=== PATIENT | male | born 1940 | race Caucasian/White ===

== ENCOUNTER 2016-12-02 01:14 | Emergency (ER) | payer MEDICARE, BC ==
[2016-12-02 01:44] VITALS: BP 136/63
[2016-12-02] MEDS ORDERED: Sodium Chloride 0.9% 1,000 ML IV SCH (02:30)
--- NOTE | 2016-12-02 03:52 | EDM.PDOC ---
ED HISTORY OF PRESENT ILLNESS - General Chief Complaint: Respiratory Problem Stated Complaint: FEVER/COUGH Time Seen by Provider: 12/02/16 02:09 Source: Reports: Patient History Limitations: Reports: No limitations - History of Present Illness INITIAL COMMENTS - FREE TEXT/NARRATIVE: History of present illness: [76-year-old male presenting with cold and cough symptoms for the last 2 or 3 days. He lives alone in town. He still driving. He cooks for himself and the neighbor helps clean his apartment. Tonight he felt short of breath and so came in in by private vehicle his son bringing him in. He has had no fever or chills. He does have a productive cough of clear sputum. He admits that he does chew but quit smoking in 1971] Review of systems: As per history of present illness and below otherwise all systems reviewed and negative. Past medical history: As per history of present illness and as reviewed below otherwise noncontributory. Surgical history: As per history of present illness and as reviewed below otherwise noncontributory. Social history: No reported history of drug or alcohol abuse. Family history: As per history of present illness and as reviewed below otherwise noncontributory. Physical exam: HEENT: Atraumatic, normocephalic, pupils reactive, negative for conjunctival pallor or scleral icterus, mucous membranes somewhat dry, throat clear, neck supple, nontender, trachea midline. Lungs: CTA with poor air movement Heart: S1S2, regular Abdomen: Soft, nondistended, nontender. Negative for masses or hepatosplenomegaly. Pelvis: Stable nontender. Genitourinary: Deferred. Rectal: Deferred. Extremities: Atraumatic, negative for cords or calf pain. Neurovascular unremarkable. Neuro: Awake, alert, oriented. Exam nonfocal. Diagnostics: [CBC complete metabolic panel and a swab for influenza A and B. were done. Influenza A and B. were negative. Chest x-ray does not show anything acute or new. He does have a pacemaker in.] Therapeutics: [Patient received IV fluids and felt somewhat better with this. I think it loosened his secretions.] Impression: [URI] Plan: [Symptomatic care is recommended followup with primary if not improving or the ER if symptoms significantly worsen] Definitive disposition and diagnosis as appropriate pending reevaluation and review of above. - Related Data Allergies/ADRs: Allergies Allergy/AdvReac Type Severity Reaction Status Date / Time cefaclor [From Ceclor] Allergy Rash Verified 09/21/16 13:50 cefuroxime axetil Allergy Cannot Verified 09/21/16 13:50 [From Ceftin] Remember contact metal agent Allergy Cannot Verified 09/21/16 13:50 Remember diltiazem HCl [From Cardizem] Allergy Cannot Verified 09/21/16 13:50 Remember latex Allergy Rash Verified 09/21/16 13:50 metronidazole [From Flagyl] Allergy Rash Verified 09/21/16 13:50 Metronidazole HCl Allergy Rash Verified 09/21/16 13:50 [From Flagyl] naproxen [From Naprosyn] AdvReac Liver Verified 09/21/16 13:50 Problems ranitidine AdvReac Stomach Verified 09/21/16 13:50 Upset Home Meds: Home Meds Aspirin [Cassia Chewable Aspirin] 81 mg PO DAILY 07/14/13 [History] Furosemide [Lasix] 20 mg PO DAILY 07/14/13 [History] Metoprolol Succinate [Toprol XL] 50 mg PO DAILY 07/14/13 [History] Warfarin [Coumadin] 10 mg PO ASDIRECTED 07/14/13 [History] glipiZIDE [Glucotrol XL] 20 mg PO BIDM 07/14/13 [History] Acetaminophen [Acetaminophen Extra Strength] 1,000 mg PO Q6HR PRN 02/26/14 [ History] Allopurinol [Zyloprim] 100 mg PO DAILY 02/26/14 [History] Calcium Carbonate/Vitamin D3 [Calcium 600 + Vit D Tablet] 1 tab PO DAILY [History] Fish Oil/[place]-3 Fatty Acids [Fish Oil 1,000 MG] 1 tab PO DAILY 02/26/14 [ History] atorvaSTATin [Lipitor] 40 mg PO DAILY 04/30/14 [History] metFORMIN [Glucophage] 1,000 mg PO DAILY 01/27/15 [History] Glucosamine/D3/Boswellia Ivet [Osteo Bi-Flex Caplet] 1 tab PO DAILY 02/09/15 [ History] Meclizine HCl 25 mg PO TID PRN 02/09/15 [History] Warfarin [Coumadin] 7.5 mg PO ASDIRECTED 11/17/15 [History] Nitroglycerin 0.4 mg SL ASDIRECTED 02/16/16 [History] Past Medical History HEENT History: Reports: Cataract, Glaucoma, Hard of hearing, Impaired vision, Macular degeneration, Otitis media, Sinusitis Cardiovascular History: Reports: Afib, Bypass, CAD, High cholesterol, Hypertension, [place], Pacemaker Respiratory History: Reports: SOB Gastrointestinal History: Reports: Chronic constipation, Chronic diarrhea, Other (see below) Other Gastrointestinal History: diverticulitis Genitourinary History: Reports: Prostate disorder Musculoskeletal History: Reports: Arthritis, Osteoarthritis Neurological History: Reports: CVA, TIA, Vertigo Endocrine/Metabolic History: Reports: Diabetes, type II Hematologic History: Reports: Anticoagulation therapy, Blood transfusion(s) Immunologic History: Reports: None Oncologic (Cancer) History: Reports: Prostate - Infectious Disease History Infectious Disease History: Reports: Other (see below) Other Infectious Disease History: unknown to patient - Past Surgical History HEENT Surgical History: Reports: Myringotomy w tube(s) Cardiovascular Surgical History: Reports: Coronary artery bypass, Pacer Other Cardiovascular Surgeries/Procedures: open heart surgery GI Surgical History: Reports: Appendectomy, Cholecystectomy, Colonoscopy, Hernia , abdominal, Hernia, inguinal, Hernia repair/other Male Surgical History: Reports: TURP-Transurethral resection of prostate Other Male Surgeries/Procedures: left tesi Musculoskeletal Surgical History: Reports: Knee replacement Oncologic Surgical History: Reports: None Social & Family History - Family History HEENT: Reports: Impaired vision Cardiac: Reports: Afib, CAD, [place] Respiratory: Reports: COPD GI: Reports: Cirrhosis, Pancreatitis : Reports: None OBGYN: Reports: None Musculoskeletal: Reports: Arthritis Neurological: Reports: CVA Psychiatric: Reports: None Endocrine/Metabolic: Reports: Diabetes, type II Hematologic: Reports: None Immunologic: Reports: None Dermatologic: Reports: None Oncologic: Reports: None - Tobacco Use Smoking Status *Q: Never Smoker Years of Tobacco use: 35 Packs/Tins Daily: 1 Used Tobacco, but Quit: Yes Month Tobacco Last Used: Sep. Second Hand Smoke Exposure: No - Caffeine Use Caffeine Use: Reports: Coffee - Alcohol Use Days Per Week of Alcohol Use: 0 - Recreational Drug Use Recreational Drug Use: No ED ROS GENERAL - Review of Systems Review Of Systems: ROS reveals no pertinent complaints other than HPI. ED EXAM, GENERAL - Physical Exam Exam: See Below Course - Vital Signs Last Recorded V/S: Last Vital Signs Temp 37.3 C 12/02/16 01:57 Pulse 69 12/02/16 01:57 Resp 28 H 12/02/16 01:57 BP 136/63 12/02/16 01:57 Pulse Ox 96 12/02/16 01:57 - Orders/Labs/Meds Orders: Active Orders 24 hr Category Date Time Status Chest 2V [CR] Stat Exams 12/02/16 02:16 Taken UA W/MICROSCOPIC [URIN] Stat Lab 12/02/16 02:16 Uncollected Sodium Chloride 0.9% [Normal Saline] 1,000 ml Med 12/02/16 02:30 Active IV ASDIRECTED Medication Orders Sodium Chloride (Normal Saline) 1,000 mls @ 500 mls/hr IV ASDIRECTED EDY Last Admin: 12/02/16 02:48 Dose: 500 mls/hr Labs: Laboratory Tests 12/02/16 12/02/16 12/02/16 Range/Units 02:25 02:25 02:25 WBC 4.3 L (4.5-11.0) K/uL RBC 3.76 L (4.30-5.90) M/uL Hgb 11.3 L (12.0-15.0) g/dL Hct 35.7 L (40.0-54.0) % MCV 95 (80-98) fL MCH 30 (27-31) pg MCHC 32 (32-36) % Plt Count 137 L (150-400) K/uL Neut % (Auto) 70 H (36-66) % Lymph % (Auto) 17 L (24-44) % [place] % (Auto) 11 H (2-6) % Eos % (Auto) 2 (2-4) % Baso % (Auto) 1 (0-1) % Sodium 142 (140-148) mmol/L Potassium 4.0 (3.6-5.2) mmol/L Chloride 107 (100-108) mmol/L Carbon Dioxide 24 (21-32) mmol/L Anion Gap 11.4 (5.0-14.0) mmol/L BUN 18 (7-18) mg/dL Creatinine 0.9 (0.8-1.3) mg/dL Est Cr Clr Drug Dosing TNP Estimated GFR (MDRD) > 60 (>60) Glucose 110 H (74-106) mg/dL Lactic Acid 1.2 (0.4-2.0) mmol/L Calcium 8.7 (8.5-10.1) mg/dL Total Bilirubin 1.4 H (0.2-1.0) mg/dL AST 46 H (15-37) U/L ALT 33 (12-78) U/L Alkaline Phosphatase 258 H (46-116) U/L C-Reactive Protein 0.48 H (0.0-0.3) mg/dL Total Protein 7.4 (6.4-8.2) g/dL Albumin 3.0 L (3.4-5.0) g/dL Globulin 4.4 H (2.3-3.5) g/dL Albumin/Globulin Ratio 0.7 L (1.2-2.2) Meds: Medications Generic Name Dose Route Start Last Admin Trade Name Freq PRN Reason Stop Dose Admin Sodium Chloride 1,000 mls @ 500 mls/hr 12/02/16 02:30 12/02/16 02:48 Normal Saline IV 500 mls/hr ASDIRECTED EDY Administration Departure - Departure Time of Disposition: 03:51 Disposition: Home, Self-Care 01 Condition: good Clinical Impression: URI (upper respiratory infection) Qualifiers: URI type: unspecified viral URI Qualified Code(s): J06.9 - Acute upper respiratory infection, unspecified; B97.89 - Other viral agents as the cause of diseases classified elsewhere Forms: ED Department Discharge Additional Instructions: Please feel free to followup in the emergency room if her symptoms significantly worsen otherwise follow up with your doctor if you are not improving. - My Orders Last 24 Hours: My Active Orders 12/02/16 02:16 Chest 2V [CR] Stat UA W/MICROSCOPIC [URIN] Stat 12/02/16 02:30 Sodium Chloride 0.9% [Normal Saline] 1,000 ml IV ASDIRECTED - Assessment/Plan Last 24 Hours: My Active Orders 12/02/16 02:16 Chest 2V [CR] Stat UA W/MICROSCOPIC [URIN] Stat 12/02/16 02:30 Sodium Chloride 0.9% [Normal Saline] 1,000 ml IV ASDIRECTED
--- NOTE | 2016-12-02 08:55 | CR ---
Moderate to advanced cardiomegaly. No focal consolidation. Pulmonary vasculature within normal limit s.
== END 2016-12-02 04:14 | disposition home or self-care (01) ==
LOC: JP.ED 01:14
DX: J06.9 Acute upper respiratory infection, unspecified (principal); B97.89 Other viral agents as the cause of diseases classified elsewhere; I48.91 Unspecified atrial fibrillation; I25.10 Atherosclerotic heart disease of native coronary artery without angina pectoris; I10 Essential (primary) hypertension; I25.2 Old myocardial infarction; E78.00 Pure hypercholesterolemia, unspecified; E11.9 Type 2 diabetes mellitus without complications; Z85.46 Personal history of malignant neoplasm of prostate; Z90.49 Acquired absence of other specified parts of digestive tract; Z95.0 Presence of cardiac pacemaker; Z95.1 Presence of aortocoronary bypass graft; Z96.22 Myringotomy tube(s) status; Z98.890 Other specified postprocedural states; Z96.659 Presence of unspecified artificial knee joint; Z79.82 Long term (current) use of aspirin; Z79.01 Long term (current) use of anticoagulants; Z79.899 Other long term (current) drug therapy; Z88.8 Allergy status to other drugs, medicaments and biological substances; Z91.040 Latex allergy status
CPT/HCPCS: 36415; 71020; 80053; 83605; 85025; 86140; 87804; 96360; 96361; 99284; J7040; 99282

== ENCOUNTER 2017-01-10 15:59 | Inpatient (IN) | payer MEDICARE, BC, SELFPAY ==
[~2017-01-10 15:59] MED LIST: Bisacodyl 5 MG Tab PO ONE
[2017-01-10] MEDS ORDERED: Sodium Chloride 0.9% 10 ML Syringe FLUSH PRN ×3 (16:39→18:47)
[2017-01-10] MEDS ORDERED: Lactated Ringers 1,000 ML IV SCH (16:45)
--- NOTE | 2017-01-10 16:51 | EDM.PDOC ---
ED HPI GI/ABDOMINAL - General Chief Complaint: Genitourinary Problem Stated Complaint: BLEEDING Time Seen by Provider: 01/10/17 16:31 Source: Reports: Patient, Old records, RN notes reviewed History Limitations: Reports: No limitations - History of Present Illness INITIAL COMMENTS - FREE TEXT/NARRATIVE: 76-year-old gentleman presents emergency department today with bright red blood per rectum he has had difficulty with GI bleeds in the past he's had a prolapse rectal fissures EGD and colonoscopy all within the last 2 years. He states the bleeding has occurred throughout most the day he does not feel lightheaded no nausea vomiting - Related Data Allergies/ADRs: Allergies Allergy/AdvReac Type Severity Reaction Status Date / Time cefaclor [From Ceclor] Allergy Rash Verified 01/10/17 16:23 cefuroxime axetil Allergy Cannot Verified 01/10/17 16:23 [From Ceftin] Remember contact metal agent Allergy Cannot Verified 01/10/17 16:23 Remember diltiazem HCl [From Cardizem] Allergy Cannot Verified 01/10/17 16:23 Remember latex Allergy Rash Verified 01/10/17 16:23 metronidazole [From Flagyl] Allergy Rash Verified 01/10/17 16:23 Metronidazole HCl Allergy Rash Verified 01/10/17 16:23 [From Flagyl] naproxen [From Naprosyn] AdvReac Liver Verified 01/10/17 16:23 Problems ranitidine AdvReac Stomach Verified 01/10/17 16:23 Upset Home Meds: Home Meds Aspirin [Cassia Chewable Aspirin] 81 mg PO DAILY 07/14/13 [History] Furosemide [Lasix] 40 mg PO DAILY 07/14/13 [History] Metoprolol Succinate [Toprol XL] 50 mg PO DAILY 07/14/13 [History] glipiZIDE [Glucotrol XL] 20 mg PO BIDM 07/14/13 [History] Acetaminophen [Acetaminophen Extra Strength] 1,000 mg PO Q6HR PRN 02/26/14 [ History] Allopurinol [Zyloprim] 100 mg PO DAILY 02/26/14 [History] Calcium Carbonate/Vitamin D3 [Calcium 600 + Vit D Tablet] 1 tab PO DAILY [History] Fish Oil/[place]-3 Fatty Acids [Fish Oil 1,000 MG] 1 tab PO DAILY 02/26/14 [ History] atorvaSTATin [Lipitor] 40 mg PO DAILY 04/30/14 [History] metFORMIN [Glucophage] 1,000 mg PO DAILY 01/27/15 [History] Glucosamine/D3/Boswellia Ivet [Osteo Bi-Flex Caplet] 1 tab PO DAILY 02/09/15 [ History] Meclizine HCl 25 mg PO TID PRN 02/09/15 [History] Warfarin [Coumadin] 7.5 mg PO DAILY 11/17/15 [History] Nitroglycerin 0.4 mg SL ASDIRECTED 02/16/16 [History] Docusate Sodium [Stool Softener] 50 mg PO DAILY 01/10/17 [History] Past Medical History HEENT History: Reports: Cataract, Glaucoma, Hard of hearing, Impaired vision, Macular degeneration, Otitis media, Sinusitis Cardiovascular History: Reports: Afib, Bypass, CAD, High cholesterol, Hypertension, [place], Pacemaker Respiratory History: Reports: SOB Gastrointestinal History: Reports: Chronic constipation, Chronic diarrhea, Other (see below) Other Gastrointestinal History: diverticulitis, bloody stools Genitourinary History: Reports: Prostate disorder Musculoskeletal History: Reports: Arthritis, Osteoarthritis Neurological History: Reports: CVA, TIA, Vertigo Endocrine/Metabolic History: Reports: Diabetes, type II Hematologic History: Reports: Anticoagulation therapy, Blood transfusion(s) Immunologic History: Reports: None Oncologic (Cancer) History: Reports: Prostate - Infectious Disease History Infectious Disease History: Reports: Measles Other Infectious Disease History: unknown to patient - Past Surgical History HEENT Surgical History: Reports: Myringotomy w tube(s) Cardiovascular Surgical History: Reports: Coronary artery bypass, Pacer Other Cardiovascular Surgeries/Procedures: open heart surgery GI Surgical History: Reports: Appendectomy, Cholecystectomy, Colonoscopy, Hernia , abdominal, Hernia, inguinal, Hernia repair/other Male Surgical History: Reports: TURP-Transurethral resection of prostate Other Male Surgeries/Procedures: left tesi Musculoskeletal Surgical History: Reports: Knee replacement Oncologic Surgical History: Reports: None Social & Family History - Family History HEENT: Reports: Impaired vision Cardiac: Reports: Afib, CAD, [place] Respiratory: Reports: COPD GI: Reports: Cirrhosis, Pancreatitis : Reports: None OBGYN: Reports: None Musculoskeletal: Reports: Arthritis Neurological: Reports: CVA Psychiatric: Reports: None Endocrine/Metabolic: Reports: Diabetes, type II Hematologic: Reports: None Immunologic: Reports: None Dermatologic: Reports: None Oncologic: Reports: None - Tobacco Use Smoking Status *Q: Never Smoker Years of Tobacco use: 20 Packs/Tins Daily: 0.1 Used Tobacco, but Quit: Yes Month Tobacco Last Used: Sep. Second Hand Smoke Exposure: No - Caffeine Use Caffeine Use: Reports: Coffee - Alcohol Use Days Per Week of Alcohol Use: 0 - Recreational Drug Use Recreational Drug Use: No ED ROS GENERAL - Review of Systems Review Of Systems: See Below Constitutional: Reports: no symptoms HEENT: Reports: No symptoms Respiratory: Reports: No Symptoms Cardiovascular: Reports: No symptoms GI/Abdominal: Reports: Bloody stool : Reports: no symptoms ED EXAM, GI/ABD - Physical Exam Exam: See Below Exam Limited By: No limitations General Appearance: alert, WD/WN, no apparent distress Respiratory/Chest: no respiratory distress, lungs clear, normal breath sounds, no accessory muscle use Cardiovascular: no murmur, irregularly irregular GI/Abdominal: soft, non tender Rectal (Males) Exam: Bloody Stool. No: Hemorrhoids, Perirectal abscess, Rectal fissure Skin Exam: Petechiae (abdomen) Course - Vital Signs Last Recorded V/S: Last Vital Signs Temp 98.2 F 01/10/17 16:12 Pulse 64 01/10/17 17:32 Resp 20 01/10/17 16:12 BP 132/71 01/10/17 17:32 Pulse Ox 95 01/10/17 17:32 - Orders/Labs/Meds Orders: Active Orders 24 hr Category Date Time Status Peripheral IV Care [RC] . DIRECTED Care 01/10/17 16:40 Active Peripheral IV Care [RC] . DIRECTED Care 01/10/17 16:56 Active RED BLOOD CELLS LP [BBK] Urgent Lab 01/10/17 17:00 Received TYPE AND SCREEN [BBK] Urgent Lab 01/10/17 17:00 Received Lactated Ringers [Ringers, Lactated] 1,000 ml Med 01/10/17 16:45 Active IV ASDIRECTED Sodium Chloride 0.9% [Saline Flush] Med 01/10/17 16:39 Active 10 ml FLUSH ASDIRECTED PRN Sodium Chloride 0.9% [Saline Flush] Med 01/10/17 16:55 Active 10 ml FLUSH ASDIRECTED PRN Peripheral IV Insertion Adult [OM.PC] Routine Oth 01/10/17 16:55 Ordered Peripheral IV Insertion Adult [OM.PC] Urgent Oth 01/10/17 16:39 Ordered Medication Orders Lactated Ringer's (Ringers, Lactated) 1,000 mls @ 500 mls/hr IV ASDIRECTED EDY Last Admin: 01/10/17 17:07 Dose: 500 mls/hr Sodium Chloride (Saline Flush) 10 ml FLUSH ASDIRECTED PRN PRN Reason: Keep Vein Open Last Admin: 01/10/17 17:09 Dose: 10 ml Sodium Chloride (Saline Flush) 10 ml FLUSH ASDIRECTED PRN PRN Reason: Keep Vein Open Last Admin: 01/10/17 17:09 Dose: 10 ml Labs: Laboratory Tests 01/10/17 01/10/17 01/10/17 Range/Units 16:39 17:00 17:00 WBC 3.8 L (4.5-11.0) K/uL RBC 3.83 L (4.30-5.90) M/uL Hgb 11.8 L (12.0-15.0) g/dL Hct 36.8 L (40.0-54.0) % MCV 96 (80-98) fL MCH 31 (27-31) pg MCHC 32 (32-36) % Plt Count 158 (150-400) K/uL Neut % (Auto) 67 H (36-66) % Lymph % (Auto) 19 L (24-44) % [place] % (Auto) 10 H (2-6) % Eos % (Auto) 3 (2-4) % Baso % (Auto) 1 (0-1) % PT 30.0 H (9.5-12.0) sec INR 2.74 H (0.80-1.20) APTT 36.6 H (27.0-36.0) sec Sodium 138 L (140-148) mmol/L Potassium 4.1 (3.6-5.2) mmol/L Chloride 103 (100-108) mmol/L Carbon Dioxide 30 (21-32) mmol/L Anion Gap 9.1 (5.0-14.0) mmol/L BUN 14 (7-18) mg/dL Creatinine 1.0 (0.8-1.3) mg/dL Est Cr Clr Drug Dosing 75.35 mL/min Estimated GFR (MDRD) > 60 (>60) Glucose 210 H (74-106) mg/dL Lactic Acid (0.4-2.0) mmol/L Calcium 8.4 L (8.5-10.1) mg/dL Total Bilirubin 1.5 H (0.2-1.0) mg/dL AST 45 H (15-37) U/L ALT 29 (12-78) U/L Alkaline Phosphatase 235 H (46-116) U/L Total Protein 7.7 (6.4-8.2) g/dL Albumin 2.9 L (3.4-5.0) g/dL Globulin 4.8 H (2.3-3.5) g/dL Albumin/Globulin Ratio 0.6 L (1.2-2.2) 01/10/17 Range/Units 17:00 WBC (4.5-11.0) K/uL RBC (4.30-5.90) M/uL Hgb (12.0-15.0) g/dL Hct (40.0-54.0) % MCV (80-98) fL MCH (27-31) pg MCHC (32-36) % Plt Count (150-400) K/uL Neut % (Auto) (36-66) % Lymph % (Auto) (24-44) % [place] % (Auto) (2-6) % Eos % (Auto) (2-4) % Baso % (Auto) (0-1) % PT (9.5-12.0) sec INR (0.80-1.20) APTT (27.0-36.0) sec Sodium (140-148) mmol/L Potassium (3.6-5.2) mmol/L Chloride (100-108) mmol/L Carbon Dioxide (21-32) mmol/L Anion Gap (5.0-14.0) mmol/L BUN (7-18) mg/dL Creatinine (0.8-1.3) mg/dL Est Cr Clr Drug Dosing mL/min Estimated GFR (MDRD) (>60) Glucose (74-106) mg/dL Lactic Acid 1.5 (0.4-2.0) mmol/L Calcium (8.5-10.1) mg/dL Total Bilirubin (0.2-1.0) mg/dL AST (15-37) U/L ALT (12-78) U/L Alkaline Phosphatase (46-116) U/L Total Protein (6.4-8.2) g/dL Albumin (3.4-5.0) g/dL Globulin (2.3-3.5) g/dL Albumin/Globulin Ratio (1.2-2.2) Meds: Medications Generic Name Dose Route Start Last Admin Trade Name Freq PRN Reason Stop Dose Admin Lactated Ringer's 1,000 mls @ 500 mls/hr 01/10/17 16:45 01/10/17 17:07 Ringers, Lactated IV 500 mls/hr ASDIRECTED EDY Administration Sodium Chloride 10 ml 01/10/17 16:39 01/10/17 17:09 Saline Flush FLUSH 10 ml ASDIRECTED PRN Administration Keep Vein Open Sodium Chloride 10 ml 01/10/17 16:55 01/10/17 17:09 Saline Flush FLUSH 10 ml ASDIRECTED PRN Administration Keep Vein Open Departure - Departure Time of Disposition: 17:40 Disposition: Admitted As Inpatient 68 Clinical Impression: GI bleed Qualifiers: GI bleed type/associated pathology: unspecified gastrointestinal hemorrhage type Qualified Code(s): K92.2 - Gastrointestinal hemorrhage, unspecified Forms: ED Department Discharge - My Orders Last 24 Hours: My Active Orders 01/10/17 16:39 Sodium Chloride 0.9% [Saline Flush] 10 ml FLUSH ASDIRECTED PRN Peripheral IV Insertion Adult [OM.PC] Urgent 01/10/17 16:40 Peripheral IV Care [RC] . DIRECTED 01/10/17 16:45 Lactated Ringers [Ringers, Lactated] 1,000 ml IV ASDIRECTED 01/10/17 16:55 Sodium Chloride 0.9% [Saline Flush] 10 ml FLUSH ASDIRECTED PRN Peripheral IV Insertion Adult [OM.PC] Routine 01/10/17 16:56 Peripheral IV Care [RC] . DIRECTED 01/10/17 17:00 RED BLOOD CELLS LP [BBK] Urgent TYPE AND SCREEN [BBK] Urgent - Assessment/Plan Last 24 Hours: My Active Orders 01/10/17 16:39 Sodium Chloride 0.9% [Saline Flush] 10 ml FLUSH ASDIRECTED PRN Peripheral IV Insertion Adult [OM.PC] Urgent 01/10/17 16:40 Peripheral IV Care [RC] . DIRECTED 01/10/17 16:45 Lactated Ringers [Ringers, Lactated] 1,000 ml IV ASDIRECTED 01/10/17 16:55 Sodium Chloride 0.9% [Saline Flush] 10 ml FLUSH ASDIRECTED PRN Peripheral IV Insertion Adult [OM.PC] Routine 01/10/17 16:56 Peripheral IV Care [RC] . DIRECTED 01/10/17 17:00 RED BLOOD CELLS LP [BBK] Urgent TYPE AND SCREEN [BBK] Urgent Plan: Assessment Acuity = acute Site and laterality = bright red blood per rectum complicated patient with known coronary artery disease, atrial fibrillation on chronic anticoagulation as well as history of colonic polyps, rectal prolapse and rectal fissure as well as diabetes mellitus type 2 Etiology = unclear etiology Manifestations = none Location of injury = home Lab values = WBC low at 3.8 consistent with leukopenia, hemoglobin low at 11.8 consistent normochromic anemia INR is therapeutic at 2.74 sodium low at 138 consistent hyponatremia lactic acid normal at 1.5 total bilirubin elevated at 1.5 consistent hyperbilirubinemia albumin low at 2.9 consistent hypoalbuminemia alkaline phosphatase elevated at 235 Plan Called and discussed the case with hospitalist systems integration advisor he agreed to come to the emergency department and evaluate the patient for admission, type and screen of 2 units has been held Patient was in agreement with the plan all questions were answered, This note was dictated using [employer] voice recognition software please call with any questions.
[2017-01-10] MEDS ORDERED: Polyethylene Glycol 3350 Powder 238 GM Bot PO ONE (17:00)
[2017-01-10] MEDS ORDERED: Polyethylene Glycol 3350 Powder 238 GM Bot ONE (18:16)
[2017-01-10] MEDS ORDERED: Bisacodyl 5 MG Tab ONE (18:17)
--- NOTE | 2017-01-10 18:23 | PCM.HP ---
H&P History of Present Illness - General Date of Service: 01/10/17 Admit Problem/Dx: Admission Diagnosis/Problem Admission Diagnosis/Problem Bleeding Source of Information: Patient, Old records, Provider, RN notes reviewed History Limitations: Reports: No limitations - History of Present Illness Initial Comments - Free Text/Narative: Mr. Vazquez is a 76-year-old gentleman who is admitted through the emergency department with a history of bloody stools over the past 24 hours. He denies significant abdominal pain and reports a large amount of blood with each bowel movement. He is received IV fluids in the emergency department, hemoglobin found to be 11.8 and he has remained hemodynamically stable. - Related Data Allergies/Adverse Reactions: Allergies Allergy/AdvReac Type Severity Reaction Status Date / Time cefaclor [From Ceclor] Allergy Rash Verified 01/10/17 16:23 cefuroxime axetil Allergy Cannot Verified 01/10/17 16:23 [From Ceftin] Remember contact metal agent Allergy Cannot Verified 01/10/17 16:23 Remember diltiazem HCl [From Cardizem] Allergy Cannot Verified 01/10/17 16:23 Remember latex Allergy Rash Verified 01/10/17 16:23 metronidazole [From Flagyl] Allergy Rash Verified 01/10/17 16:23 Metronidazole HCl Allergy Rash Verified 01/10/17 16:23 [From Flagyl] naproxen [From Naprosyn] AdvReac Liver Verified 01/10/17 16:23 Problems ranitidine AdvReac Stomach Verified 01/10/17 16:23 Upset Home Medications: Home Meds Aspirin [Cassia Chewable Aspirin] 81 mg PO DAILY 07/14/13 [History] Furosemide [Lasix] 40 mg PO DAILY 07/14/13 [History] Metoprolol Succinate [Toprol XL] 50 mg PO DAILY 07/14/13 [History] glipiZIDE [Glucotrol XL] 20 mg PO BIDM 07/14/13 [History] Acetaminophen [Acetaminophen Extra Strength] 1,000 mg PO Q6HR PRN 02/26/14 [ History] Allopurinol [Zyloprim] 100 mg PO DAILY 02/26/14 [History] Calcium Carbonate/Vitamin D3 [Calcium 600 + Vit D Tablet] 1 tab PO DAILY [History] Fish Oil/[place]-3 Fatty Acids [Fish Oil 1,000 MG] 1 tab PO DAILY 02/26/14 [ History] atorvaSTATin [Lipitor] 40 mg PO DAILY 04/30/14 [History] metFORMIN [Glucophage] 1,000 mg PO DAILY 01/27/15 [History] Glucosamine/D3/Boswellia Ivet [Osteo Bi-Flex Caplet] 1 tab PO DAILY 02/09/15 [ History] Meclizine HCl 25 mg PO TID PRN 02/09/15 [History] Warfarin [Coumadin] 7.5 mg PO DAILY 11/17/15 [History] Nitroglycerin 0.4 mg SL ASDIRECTED 02/16/16 [History] Docusate Sodium [Stool Softener] 50 mg PO DAILY 01/10/17 [History] Past Medical History HEENT History: Reports: Cataract, Glaucoma, Hard of hearing, Impaired vision, Macular degeneration, Otitis media, Sinusitis Cardiovascular History: Reports: Afib, Bypass, CAD, High cholesterol, Hypertension, [place], Pacemaker Respiratory History: Reports: SOB Gastrointestinal History: Reports: Chronic constipation, Chronic diarrhea, Other (see below) Other Gastrointestinal History: diverticulitis, bloody stools Genitourinary History: Reports: Prostate disorder Musculoskeletal History: Reports: Arthritis, Osteoarthritis Neurological History: Reports: CVA, TIA, Vertigo Endocrine/Metabolic History: Reports: Diabetes, type II Hematologic History: Reports: Anticoagulation therapy, Blood transfusion(s) Immunologic History: Reports: None Oncologic (Cancer) History: Reports: Prostate - Infectious Disease History Infectious Disease History: Reports: Measles Other Infectious Disease History: unknown to patient - Past Surgical History HEENT Surgical History: Reports: Myringotomy w tube(s) Cardiovascular Surgical History: Reports: Coronary artery bypass, Pacer Other Cardiovascular Surgeries/Procedures: open heart surgery GI Surgical History: Reports: Appendectomy, Cholecystectomy, Colonoscopy, Hernia , abdominal, Hernia, inguinal, Hernia repair/other Male Surgical History: Reports: TURP-Transurethral resection of prostate Other Male Surgeries/Procedures: left tesi Musculoskeletal Surgical History: Reports: Knee replacement Oncologic Surgical History: Reports: None Social & Family History - Family History HEENT: Reports: Impaired vision Cardiac: Reports: Afib, CAD, [place] Respiratory: Reports: COPD GI: Reports: Cirrhosis, Pancreatitis : Reports: None OBGYN: Reports: None Musculoskeletal: Reports: Arthritis Neurological: Reports: CVA Psychiatric: Reports: None Endocrine/Metabolic: Reports: Diabetes, type II Hematologic: Reports: None Immunologic: Reports: None Dermatologic: Reports: None Oncologic: Reports: None - Tobacco Use Smoking Status *Q: Never Smoker Years of Tobacco use: 20 Packs/Tins Daily: 0.1 Used Tobacco, but Quit: Yes Month Tobacco Last Used: Sep. Second Hand Smoke Exposure: No - Caffeine Use Caffeine Use: Reports: Coffee - Alcohol Use Days Per Week of Alcohol Use: 0 - Recreational Drug Use Recreational Drug Use: No H&P Review of Systems - Review of Systems: Review Of Systems: See Below General: Reports: weakness. Denies: fever, chills, diaphoresis HEENT: Reports: no symptoms Pulmonary: Reports: No Symptoms Cardiovascular: Reports: no symptoms Gastrointestinal: Reports: Bloody stool. Denies: Abdominal pain, Constipation, Diarrhea, Decreased appetite, Difficulty swallowing, Distension Genitourinary: Reports: no symptoms Musculoskeletal: Reports: no symptoms Skin: Reports: no symptoms Psychiatric: Reports: no symptoms Neurological: Reports: No Symptoms Hematologic/Lymphatic: Reports: no symptoms Immunologic: Reports: no symptoms Exam - Exam Exam: See Below - Vital Signs Vital Signs: Last Vital Signs Temp 98.2 F 01/10/17 16:12 Pulse 64 01/10/17 17:32 Resp 20 01/10/17 16:12 BP 132/71 01/10/17 17:32 Pulse Ox 95 01/10/17 17:32 Weight: 233 lb 11.04 oz - Exam General: alert, oriented, cooperative HEENT: Conjunctiva clear, EOMI, Mucosa moist & pink, Nares patent, Normal nasal septum, Posterior pharynx clear, Pupils equal, Pupils reactive. No: Hearing intact Neck: supple, trachea midline, +2 carotid pulse wo bruit Lungs: Normal respiratory effort, Decreased breath sounds. No: Crackles, Rales , Rhonchi, Wheezing Cardiovascular: regular rate, normal S1, normal S2, irregular rhythm. No: tachycardia, systolic murmur, diastolic murmur Abdomen: normal bowel sounds, soft Back Exam: normal inspection, full range of motion, NT Extremities: 3, normal inspection, 10 Skin: warm, dry, intact Neurological: cranial nerves intact, strength equal bilateral, normal speech, normal tone, sensation intact. No: focal deficit Neuro Extensive - Mental Status: alert, oriented x3, normal mood/affect, normal cognition, memory intact - Patient Data Lab Results last 24 hrs: Laboratory Results - last 24 hr 01/10/17 01/10/17 01/10/17 Range/Units 16:39 17:00 17:00 WBC 3.8 L (4.5-11.0) K/uL RBC 3.83 L (4.30-5.90) M/uL Hgb 11.8 L (12.0-15.0) g/dL Hct 36.8 L (40.0-54.0) % MCV 96 (80-98) fL MCH 31 (27-31) pg MCHC 32 (32-36) % Plt Count 158 (150-400) K/uL Neut % (Auto) 67 H (36-66) % Lymph % (Auto) 19 L (24-44) % [place] % (Auto) 10 H (2-6) % Eos % (Auto) 3 (2-4) % Baso % (Auto) 1 (0-1) % PT 30.0 H (9.5-12.0) sec INR 2.74 H (0.80-1.20) APTT 36.6 H (27.0-36.0) sec Sodium 138 L (140-148) mmol/L Potassium 4.1 (3.6-5.2) mmol/L Chloride 103 (100-108) mmol/L Carbon Dioxide 30 (21-32) mmol/L Anion Gap 9.1 (5.0-14.0) mmol/L BUN 14 (7-18) mg/dL Creatinine 1.0 (0.8-1.3) mg/dL Est Cr Clr Drug Dosing 75.35 mL/min Estimated GFR (MDRD) > 60 (>60) Glucose 210 H (74-106) mg/dL Lactic Acid (0.4-2.0) mmol/L Calcium 8.4 L (8.5-10.1) mg/dL Total Bilirubin 1.5 H (0.2-1.0) mg/dL AST 45 H (15-37) U/L ALT 29 (12-78) U/L Alkaline Phosphatase 235 H (46-116) U/L Total Protein 7.7 (6.4-8.2) g/dL Albumin 2.9 L (3.4-5.0) g/dL Globulin 4.8 H (2.3-3.5) g/dL Albumin/Globulin Ratio 0.6 L (1.2-2.2) Blood Type Gel Antibody Screen Crossmatch 01/10/17 01/10/17 Range/Units 17:00 17:00 WBC (4.5-11.0) K/uL RBC (4.30-5.90) M/uL Hgb (12.0-15.0) g/dL Hct (40.0-54.0) % MCV (80-98) fL MCH (27-31) pg MCHC (32-36) % Plt Count (150-400) K/uL Neut % (Auto) (36-66) % Lymph % (Auto) (24-44) % [place] % (Auto) (2-6) % Eos % (Auto) (2-4) % Baso % (Auto) (0-1) % PT (9.5-12.0) sec INR (0.80-1.20) APTT (27.0-36.0) sec Sodium (140-148) mmol/L Potassium (3.6-5.2) mmol/L Chloride (100-108) mmol/L Carbon Dioxide (21-32) mmol/L Anion Gap (5.0-14.0) mmol/L BUN (7-18) mg/dL Creatinine (0.8-1.3) mg/dL Est Cr Clr Drug Dosing mL/min Estimated GFR (MDRD) (>60) Glucose (74-106) mg/dL Lactic Acid 1.5 (0.4-2.0) mmol/L Calcium (8.5-10.1) mg/dL Total Bilirubin (0.2-1.0) mg/dL AST (15-37) U/L ALT (12-78) U/L Alkaline Phosphatase (46-116) U/L Total Protein (6.4-8.2) g/dL Albumin (3.4-5.0) g/dL Globulin (2.3-3.5) g/dL Albumin/Globulin Ratio (1.2-2.2) Blood Type A POSITIVE Gel Antibody Screen Negative Crossmatch See Detail Result Diagrams: 01/10/17 16:39 01/10/17 17:00 *Q Meaningful Use (ADM) - VTE *Q VTE Criteria *Q: VTE Pharmacological Contraindications *Q: Active Hemorrhage - VTE Risk Assess *Q Each Risk Factor Represents 1 Point: None Total Score 1 Point Risk Factors: 0 Each Risk Factor Represents 2 Points: Age 60 - 74 Years Total Score 2 Point Risk Factors: 2 Each Risk Factor Represents 3 Points: None Total Score 3 Point Risk Factors: 0 Each Risk Factor Represents 5 Points: None Total Score 5 Point Risk Factors: 0 Venous Thromboembolism Risk Factor Score *Q: 2 - Stroke *Q Stroke Criteria *Q: - AMI *Q AMI Criteria *Q: Problem List Initiated/Reviewed/Updated: Yes Orders Last 24hrs: Active Orders 24 hr Category Date Time Status Patient Status Manage Transfer [TRANSFER] Routine ADT 01/10/17 18:03 Ordered Peripheral IV Care [RC] . DIRECTED Care 01/10/17 16:40 Active Peripheral IV Care [RC] . DIRECTED Care 01/10/17 16:56 Active PATIENT RETYPE [BBK] Urgent Lab 01/10/17 17:00 Results RED BLOOD CELLS LP [BBK] Urgent Lab 01/10/17 17:00 Results TYPE AND SCREEN [BBK] Urgent Lab 01/10/17 17:00 Results Lactated Ringers [Ringers, Lactated] 1,000 ml Med 01/10/17 16:45 Active IV ASDIRECTED Sodium Chloride 0.9% [Saline Flush] Med 01/10/17 16:39 Active 10 ml FLUSH ASDIRECTED PRN Sodium Chloride 0.9% [Saline Flush] Med 01/10/17 16:55 Active 10 ml FLUSH ASDIRECTED PRN Peripheral IV Insertion Adult [OM.PC] Routine Oth 01/10/17 16:55 Ordered Peripheral IV Insertion Adult [OM.PC] Urgent Oth 01/10/17 16:39 Ordered Resuscitation Status Routine Resus Stat 01/10/17 18:10 Ordered Medication Orders Lactated Ringer's (Ringers, Lactated) 1,000 mls @ 500 mls/hr IV ASDIRECTED EDY Last Admin: 01/10/17 17:07 Dose: 500 mls/hr Sodium Chloride (Saline Flush) 10 ml FLUSH ASDIRECTED PRN PRN Reason: Keep Vein Open Last Admin: 01/10/17 17:09 Dose: 10 ml Sodium Chloride (Saline Flush) 10 ml FLUSH ASDIRECTED PRN PRN Reason: Keep Vein Open Last Admin: 01/10/17 17:09 Dose: 10 ml Assessment/Plan Comment:: ASSESSMENT AND PLAN LOWER GI BLEED-history of bloody stools over the past 24 hours. Hemodynamically stable, hemoglobin 11.8. Currently on long-term oral anticoagulation with warfarin because of underlying atrial fibrillation. -Clear liquid diet -N.p.o. after midnight -Protonix 40 mg IV every 12 hours -Type and cross to hold 2 units of red blood cells -Serial hemoglobin levels -Colonoscopy prep -Consult Dr. Wilson in a.m. for EGD and colonoscopy TYPE 2 DIABETES MELLITUS -Hold metformin and glipizide -4 times a day glucometers -Low-dose sliding scale NovoLog CORONARY ARTERY DISEASE-currently asymptomatic -Continue outpatient medical regimen MAINTENANCE ISSUES -DVT prophylaxis;SCUDs, hold on anticoagulation because of active bleeding -GI prophylaxis;Protonix as above -Emmanuel catheter;not indicated -Nutrition;clear liquid diet, n.p.o. after midnight -Nicotine dependence;not required CODE STATUS-full code ADMISSION STATUS-patient will be admitted to inpatient status, expect at least a 2 night hospital stay for evaluation and management of problems as outlined above. At the time of this admission I do not reasonably expected evaluation and management of this problem will require more than a 96 hour hospital stay. DISPOSITION-anticipate discharge to home after the hospital stay. PRIMARY CARE PROVIDER-Dr. Ureña
[2017-01-10] MEDS ORDERED: Glucose Gel 15 GM in 37.5 GM Tube PO PRN (18:47)
[2017-01-10] MEDS ORDERED: Ondansetron 4 MG/2 ML SDV IV PRN (18:47)
[2017-01-10] MEDS ORDERED: Albuterol 0.083% 2.5 MG/3 ML Neb Soln NEB PRN (18:47)
[2017-01-10] MEDS ORDERED: Acetaminophen 325 MG Tab PO PRN (18:47)
[2017-01-10] MEDS ORDERED: Phytonadione 5 MG in Sodium Chloride 0.9% 50 ML IV ONE (18:47)
[2017-01-10] MEDS ORDERED: 50% Dextrose in Water 50 ML Syringe IV PRN (18:47)
[2017-01-10] MEDS: Sodium Chloride 0.9% 1,000 ML IV SCH (19:22)
[2017-01-10] MEDS ORDERED: Bisacodyl 5 MG Tab PO ONE (20:00)
[2017-01-10] MEDS: Pantoprazole 40 MG Vial IVPUSH SCH (20:22)
[2017-01-10] MEDS: Insulin Aspart 100 Units/ML 3 ML Pen SUBCUT SCH (21:31)
[2017-01-11] MEDS: Sodium Chloride 0.9% 1,000 ML IV SCH ×2 (04:00→16:39)
[2017-01-11] MEDS: Pantoprazole 40 MG Vial IVPUSH SCH ×2 (06:07→17:27)
[2017-01-11] MEDS: Metoprolol Succinate 50 MG Tab.ER PO SCH (09:48)
[2017-01-11] MEDS: Allopurinol 100 MG Tab PO SCH (09:48)
[2017-01-11] MEDS ORDERED: Phytonadione 5 MG in Sodium Chloride 0.9% 50 ML IV ONE (10:00)
--- NOTE | 2017-01-11 10:18 | PCM.PN ---
- General Info Date of Service: 01/11/17 Functional Status: Reports: ambulating, urinating - Review of Systems General: Reports: Weakness Pulmonary: Reports: no symptoms Cardiovascular: Reports: No Symptoms Gastrointestinal: Reports: No symptoms Systems Review Comment:: Mr. Vazquez has remained stable since admission, no further evidence of active bleeding. INR remains elevated today, unable to proceed with EGD or colonoscopy. Hemoglobin has remained stable and he has had stable vital signs. - Patient Data Vitals - most recent: Last Vital Signs Temp 99.1 F 01/11/17 07:00 Pulse 65 01/11/17 09:48 Resp 20 01/11/17 09:00 BP 127/49 L 01/11/17 09:48 Pulse Ox 95 01/11/17 09:00 Weight - most recent: 229 lb 15.074 oz I&O - last 24 hours: Intake & Output 01/10/17 01/11/17 01/11/17 22:59 06:59 14:59 Intake Total 50 1236 Output Total 200 Balance -150 1236 Lab Results last 24 hrs: Laboratory Results - last 24 hr 01/10/17 01/11/17 01/11/17 Range/Units 23:00 05:00 05:00 WBC (4.5-11.0) K/uL RBC (4.30-5.90) M/uL Hgb 11.4 L (12.0-15.0) g/dL Hct (40.0-54.0) % MCV (80-98) fL MCH (27-31) pg MCHC (32-36) % Plt Count (150-400) K/uL Neut % (Auto) (36-66) % Lymph % (Auto) (24-44) % [place] % (Auto) (2-6) % Eos % (Auto) (2-4) % Baso % (Auto) (0-1) % PT 26.6 H (9.5-12.0) sec INR 2.44 H (0.80-1.20) Sodium 137 L (140-148) mmol/L Potassium 3.4 L (3.6-5.2) mmol/L Chloride 104 (100-108) mmol/L Carbon Dioxide 25 (21-32) mmol/L Anion Gap 11.4 (5.0-14.0) mmol/L BUN 12 (7-18) mg/dL Creatinine 0.8 (0.8-1.3) mg/dL Est Cr Clr Drug Dosing 94.23 mL/min Estimated GFR (MDRD) > 60 (>60) Glucose 72 L (74-106) mg/dL Calcium 8.1 L (8.5-10.1) mg/dL 01/11/17 Range/Units 05:11 WBC 3.9 L (4.5-11.0) K/uL RBC 3.55 L (4.30-5.90) M/uL Hgb 11.3 L (12.0-15.0) g/dL Hct 33.8 L (40.0-54.0) % MCV 95 (80-98) fL MCH 32 H (27-31) pg MCHC 33 (32-36) % Plt Count 160 (150-400) K/uL Neut % (Auto) 64 (36-66) % Lymph % (Auto) 20 L (24-44) % [place] % (Auto) 13 H (2-6) % Eos % (Auto) 3 (2-4) % Baso % (Auto) 1 (0-1) % PT (9.5-12.0) sec INR (0.80-1.20) Sodium (140-148) mmol/L Potassium (3.6-5.2) mmol/L Chloride (100-108) mmol/L Carbon Dioxide (21-32) mmol/L Anion Gap (5.0-14.0) mmol/L BUN (7-18) mg/dL Creatinine (0.8-1.3) mg/dL Est Cr Clr Drug Dosing mL/min Estimated GFR (MDRD) (>60) Glucose (74-106) mg/dL Calcium (8.5-10.1) mg/dL Med Orders - Current: Current Medications Acetaminophen (Tylenol) 650 mg PO Q4H PRN PRN Reason: Pain (Mild 1-3)/fever Albuterol (Proventil Neb Soln) 2.5 mg NEB Q4H PRN PRN Reason: Shortness Of Breath/wheezing Allopurinol (Zyloprim) 100 mg PO DAILY [facility] Last Admin: 01/11/17 09:48 Dose: 100 mg Atorvastatin Calcium (Lipitor) 40 mg PO BEDTIME [facility] Dextrose (Glutose 15) 15 gm PO ONETIME PRN PRN Reason: Hypoglycemia Dextrose/Water (Dextrose 50% In Water) 50 ml IV ONETIME PRN PRN Reason: Hypoglycemia Sodium Chloride (Normal Saline) 1,000 mls @ 125 mls/hr IV ASDIRECTED [facility] Last Admin: 01/11/17 04:00 Dose: 125 mls/hr Potassium Chloride 20 meq/Lidocaine HCl 2 ml/ Sodium Chloride 112 mls @ 56 mls/ hr IV Q2H [facility] Stop: 01/11/17 13:59 Phytonadione 5 mg/ Sodium (Chloride) 50.5 mls @ 100 mls/hr IV ONETIME ONE Stop: 01/11/17 10:30 Last Admin: 01/11/17 09:51 Dose: 100 mls/hr Sodium Chloride (Normal Saline) 1,000 mls @ 100 mls/hr IV ASDIRECTED [facility] Insulin Aspart (Novolog) 0 unit SUBCUT ASDIRECTED [facility] PRN Reason: Protocol Last Admin: 01/10/17 21:31 Dose: 2 units Metoprolol Succinate (Toprol Xl) 50 mg PO DAILY [facility] Last Admin: 01/11/17 09:48 Dose: 50 mg Ondansetron HCl (Zofran) 4 mg IV Q4H PRN PRN Reason: Nausea/Vomiting Oxycodone HCl (Oxycodone) 10 mg PO Q4H PRN PRN Reason: Pain (moderate 4-6) Pantoprazole Sodium (Protonix Iv) 40 mg IVPUSH Q12H [facility] Sodium Chloride (Saline Flush) 10 ml FLUSH ASDIRECTED PRN PRN Reason: Keep Vein Open Discontinued Medications Bisacodyl (Dulcolax) Confirm Administered Dose 10 mg .ROUTE .STK-MED ONE Stop: 01/10/17 18:18 Last Admin: 01/10/17 19:34 Dose: Not Given Bisacodyl (Dulcolax) 10 mg PO ONETIME ONE Stop: 01/10/17 09:01 Last Admin: 01/10/17 20:17 Dose: 10 mg Bisacodyl (Dulcolax) 10 mg PO ONETIME ONE Stop: 01/10/17 20:01 Last Admin: 01/10/17 21:55 Dose: 10 mg Lactated Ringer's (Ringers, Lactated) 1,000 mls @ 500 mls/hr IV ASDIRECTED EDY Last Admin: 01/10/17 17:07 Dose: 500 mls/hr Phytonadione 5 mg/ Sodium (Chloride) 50.5 mls @ 100 mls/hr IV NOW ONE Stop: 01/10/17 19:17 Last Admin: 01/10/17 19:45 Dose: 100 mls/hr Pantoprazole Sodium (Protonix Iv) 40 mg IVPUSH Q12H [facility] Last Admin: 01/11/17 06:07 Dose: 40 mg Polyethylene Glycol (Miralax) Confirm Administered Dose 238 gm .ROUTE .STK-MED ONE Stop: 01/10/17 18:17 Last Admin: 01/10/17 19:33 Dose: Not Given Polyethylene Glycol (Miralax) 238 gm PO ONETIME ONE Stop: 01/10/17 17:01 Last Admin: 01/10/17 19:42 Dose: 238 gram Sodium Chloride (Saline Flush) 10 ml FLUSH ASDIRECTED PRN PRN Reason: Keep Vein Open Last Admin: 01/10/17 17:09 Dose: 10 ml Sodium Chloride (Saline Flush) 10 ml FLUSH ASDIRECTED PRN PRN Reason: Keep Vein Open Last Admin: 01/10/17 17:09 Dose: 10 ml - Exam Quality Assessment: DVT prophylaxis General: alert, oriented, cooperative, no acute distress Lungs: Clear to auscultation, Normal respiratory effort Cardiovascular: Regular Rate, Regular Rhythm, No Murmurs Abdomen: bowel sounds present, soft, no tenderness, no distension Extremities: no edema Skin: warm, dry, intact - Problem List Review Problem List Initiated/Reviewed/Updated: Yes - My Orders Last 24 Hours: My Active Orders 01/10/17 18:10 Resuscitation Status Routine 01/10/17 18:47 Patient Status [ADT] Routine Blood Glucose Check, Bedside [RC] QIDACANDBED Communication Order [RC] ASDIRECTED Diabetes Education [RC] Click to Edit Intake and Output [RC] QSHIFT Notify Provider Vital Signs [RC] ASDIRECTED Notify Provider [RC] PRN Oxygen Therapy [RC] PRN Peripheral IV Care [RC] . DIRECTED RT Aerosol Therapy [RC] ASDIRECTED Up ad Erica [RC] ASDIRECTED VTE/DVT Education [RC] Per Unit Routine Vital Signs [RC] Q2H Acetaminophen [Tylenol] 650 mg PO Q4H PRN Albuterol [Proventil Neb Soln] 2.5 mg NEB Q4H PRN Dextrose 50% in Water 50 ml IV ONETIME PRN Dextrose [Glutose 15] 15 gm PO ONETIME PRN Insulin Aspart [NovoLOG] See Protocol SUBCUT ASDIRECTED Ondansetron [Zofran] 4 mg IV Q4H PRN Sodium Chloride 0.9% [Normal Saline] 1,000 ml IV ASDIRECTED Sodium Chloride 0.9% [Saline Flush] 10 ml FLUSH ASDIRECTED PRN oxyCODONE 10 mg PO Q4H PRN Peripheral IV Insertion Adult [OM.PC] Routine Sequential Compression Device [OM.PC] Per Unit Routine VTE Pharmacological Contraindications [AST] Per Unit Routine 01/11/17 09:00 Allopurinol [Zyloprim] 100 mg PO DAILY Metoprolol Succinate [Toprol XL] 50 mg PO DAILY 01/11/17 10:00 Phytonadione [AquaMephyton] 5 mg Sodium Chloride 0.9% [Normal Saline] 50 ml IV ONETIME Potassium Chloride 20 meq Lidocaine 1% [Xylocaine 1%] 2 ml Sodium Chloride 0.9 % [Normal Saline] 100 ml IV Q2H 01/11/17 10:15 Convert IV to Saline Lock [OM.PC] Routine 01/11/17 17:00 HGB [HEMOGLOBIN] [HEME] Routine 01/11/17 18:00 Pantoprazole [ProTONIX IV] 40 mg IVPUSH Q12H 01/11/17 21:00 atorvaSTATin [Lipitor] 40 mg PO BEDTIME 01/11/17 Breakfast Clear Liquid Diet [DIET] 01/12/17 00:01 Sodium Chloride 0.9% @ 100 MLS/HR(1000ml) Sodium Chloride 0.9% [Normal Saline] 1 ,000 ml IV ASDIRECTED 01/12/17 05:00 BASIC METABOLIC PANEL,BMP [CHEM] Timed CBC WITH AUTO DIFF [HEME] Timed INR,PT,PROTHROMBIN TIME [COAG] Timed 01/12/17 07:30 GLUCOSE POC LAB TO COLLECT [POC] QIDACANDBED 01/12/17 11:30 GLUCOSE POC LAB TO COLLECT [POC] QIDACANDBED 01/12/17 16:30 GLUCOSE POC LAB TO COLLECT [POC] QIDACANDBED 01/12/17 21:00 GLUCOSE POC LAB TO COLLECT [POC] QIDACANDBED 01/12/17 Breakfast Nothing per Oral After Midnight Diet [DIET] 01/13/17 07:30 GLUCOSE POC LAB TO COLLECT [POC] QIDACANDBED 01/13/17 11:30 GLUCOSE POC LAB TO COLLECT [POC] QIDACANDBED 01/13/17 16:30 GLUCOSE POC LAB TO COLLECT [POC] QIDACANDBED 01/13/17 21:00 GLUCOSE POC LAB TO COLLECT [POC] QIDACANDBED 01/14/17 07:30 GLUCOSE POC LAB TO COLLECT [POC] QIDACANDBED 01/14/17 11:30 GLUCOSE POC LAB TO COLLECT [POC] QIDACANDBED 01/14/17 16:30 GLUCOSE POC LAB TO COLLECT [POC] QIDACANDBED 01/14/17 21:00 GLUCOSE POC LAB TO COLLECT [POC] QIDACANDBED 01/15/17 07:30 GLUCOSE POC LAB TO COLLECT [POC] QIDACANDBED 01/15/17 11:30 GLUCOSE POC LAB TO COLLECT [POC] QIDACANDBED 01/15/17 16:30 GLUCOSE POC LAB TO COLLECT [POC] QIDACANDBED 01/15/17 21:00 GLUCOSE POC LAB TO COLLECT [POC] QIDACANDBED 01/16/17 07:30 GLUCOSE POC LAB TO COLLECT [POC] QIDACANDBED 01/16/17 11:30 GLUCOSE POC LAB TO COLLECT [POC] QIDACANDBED 01/16/17 16:30 GLUCOSE POC LAB TO COLLECT [POC] QIDACANDBED 01/16/17 21:00 GLUCOSE POC LAB TO COLLECT [POC] QIDACANDBED 01/17/17 07:30 GLUCOSE POC LAB TO COLLECT [POC] QIDACANDBED 01/17/17 11:30 GLUCOSE POC LAB TO COLLECT [POC] QIDACANDBED 01/17/17 16:30 GLUCOSE POC LAB TO COLLECT [POC] QIDACANDBED 01/17/17 21:00 GLUCOSE POC LAB TO COLLECT [POC] QIDACANDBED 01/18/17 07:30 GLUCOSE POC LAB TO COLLECT [POC] QIDACANDBED 01/18/17 11:30 GLUCOSE POC LAB TO COLLECT [POC] QIDACANDBED 01/18/17 16:30 GLUCOSE POC LAB TO COLLECT [POC] QIDACANDBED 01/18/17 21:00 GLUCOSE POC LAB TO COLLECT [POC] QIDACANDBED 01/19/17 07:30 GLUCOSE POC LAB TO COLLECT [POC] QIDACANDBED 01/19/17 11:30 GLUCOSE POC LAB TO COLLECT [POC] QIDACANDBED 01/19/17 16:30 GLUCOSE POC LAB TO COLLECT [POC] QIDACANDBED 01/19/17 21:00 GLUCOSE POC LAB TO COLLECT [POC] QIDACANDBED 01/20/17 07:30 GLUCOSE POC LAB TO COLLECT [POC] QIDACANDBED 01/20/17 11:30 GLUCOSE POC LAB TO COLLECT [POC] QIDACANDBED 01/20/17 16:30 GLUCOSE POC LAB TO COLLECT [POC] QIDACANDBED 01/20/17 21:00 GLUCOSE POC LAB TO COLLECT [POC] QIDACANDBED 01/21/17 07:30 GLUCOSE POC LAB TO COLLECT [POC] QIDACANDBED 01/21/17 11:30 GLUCOSE POC LAB TO COLLECT [POC] QIDACANDBED 01/21/17 16:30 GLUCOSE POC LAB TO COLLECT [POC] QIDACANDBED - Plan Plan:: ASSESSMENT AND PLAN LOWER GI BLEED-no evidence of active bleeding since admission, INR remains elevated. We'll need to hold on EGD and colonoscopy today. -Clear liquid diet -N.p.o. after midnight -Protonix 40 mg IV every 12 hours -Type and cross to hold 2 units of red blood cells -Serial hemoglobin levels -Colonoscopy prep -Consult Dr. Palomino in a.m. for EGD and colonoscopy TYPE 2 DIABETES MELLITUS -Hold metformin and glipizide -4 times a day glucometers -Low-dose sliding scale NovoLog CORONARY ARTERY DISEASE-currently asymptomatic -Continue outpatient medical regimen MAINTENANCE ISSUES -DVT prophylaxis;SCUDs, hold on anticoagulation because of active bleeding -GI prophylaxis;Protonix as above -Emmanuel catheter;not indicated -Nutrition;clear liquid diet, n.p.o. after midnight -Nicotine dependence;not required CODE STATUS-full code ADMISSION STATUS-patient will be admitted to inpatient status, expect at least a 2 night hospital stay for evaluation and management of problems as outlined above. At the time of this admission I do not reasonably expected evaluation and management of this problem will require more than a 96 hour hospital stay. DISPOSITION-anticipate discharge to home after the hospital stay. PRIMARY CARE PROVIDER-Dr. Ureña
[2017-01-11] MEDS: Potassium Chloride 20 MEQ, Lidocaine 1% 2 ML in Sodium Chloride 0.9% 100 ML IV SCH ×2 (10:54→12:48)
[2017-01-11] MEDS: Insulin Aspart 100 Units/ML 3 ML Pen SUBCUT SCH (17:28)
[2017-01-11] MEDS: atorvaSTATin 20 MG Tab PO SCH (20:07)
[2017-01-11] MEDS: oxyCODONE 5 MG Tab PO PRN (22:42)
[2017-01-12] MEDS ORDERED: Sodium Chloride 0.9% 1,000 ML IV SCH (00:01)
[2017-01-12] MEDS: Sodium Chloride 0.9% 1,000 ML IV SCH ×2 (00:35→08:23)
[2017-01-12] MEDS: Pantoprazole 40 MG Vial IVPUSH SCH (05:24)
[2017-01-12] MEDS ORDERED: Dextrose 5%-0.9% NaCl 1,000 ML IV SCH (09:15)
--- NOTE | 2017-01-12 09:42 | PCM.PN ---
- General Info Date of Service: 01/12/17 Functional Status: Reports: pain controlled, urinating - Review of Systems General: Denies: Fever, Weakness, Chills Pulmonary: Reports: no symptoms Cardiovascular: Reports: No Symptoms Gastrointestinal: Reports: No symptoms Systems Review Comment:: This patient has been stable since yesterday, no further evidence of active bleeding. Hemoglobin has remained stable and vital signs have been good. INR is now down to acceptable range to proceed with EGD and colonoscopy. - Patient Data Vitals - most recent: Last Vital Signs Temp 98.7 F 01/12/17 07:23 Pulse 70 01/12/17 07:23 Resp 16 01/12/17 07:23 BP 122/77 01/12/17 07:23 Pulse Ox 94 L 01/12/17 07:23 Weight - most recent: 229 lb 15.074 oz I&O - last 24 hours: Intake & Output 01/11/17 01/12/17 01/12/17 22:59 06:59 14:59 Intake Total 1748 1487 Output Total 450 0 Balance 1748 1037 0 Lab Results last 24 hrs: Laboratory Results - last 24 hr 01/11/17 01/12/17 01/12/17 Range/Units 16:55 04:45 04:45 WBC 3.7 L (4.5-11.0) K/uL RBC 3.65 L (4.30-5.90) M/uL Hgb 12.0 11.2 L (12.0-15.0) g/dL Hct 35.3 L (40.0-54.0) % MCV 97 (80-98) fL MCH 31 (27-31) pg MCHC 32 (32-36) % Plt Count 153 (150-400) K/uL Neut % (Auto) 54 (36-66) % Lymph % (Auto) 29 (24-44) % [place]orne % (Auto) 12 H (2-6) % Eos % (Auto) 5 H (2-4) % Baso % (Auto) 1 (0-1) % PT 16.9 H (9.5-12.0) sec INR 1.57 H (0.80-1.20) Sodium (140-148) mmol/L Potassium (3.6-5.2) mmol/L Chloride (100-108) mmol/L Carbon Dioxide (21-32) mmol/L Anion Gap (5.0-14.0) mmol/L BUN (7-18) mg/dL Creatinine (0.8-1.3) mg/dL Est Cr Clr Drug Dosing mL/min Estimated GFR (MDRD) (>60) Glucose (74-106) mg/dL Calcium (8.5-10.1) mg/dL 01/12/17 Range/Units 04:45 WBC (4.5-11.0) K/uL RBC (4.30-5.90) M/uL Hgb (12.0-15.0) g/dL Hct (40.0-54.0) % MCV (80-98) fL MCH (27-31) pg MCHC (32-36) % Plt Count (150-400) K/uL Neut % (Auto) (36-66) % Lymph % (Auto) (24-44) % Cla[place]orne % (Auto) (2-6) % Eos % (Auto) (2-4) % Baso % (Auto) (0-1) % PT (9.5-12.0) sec INR (0.80-1.20) Sodium 137 L (140-148) mmol/L Potassium 3.7 (3.6-5.2) mmol/L Chloride 106 (100-108) mmol/L Carbon Dioxide 25 (21-32) mmol/L Anion Gap 9.7 (5.0-14.0) mmol/L BUN 10 (7-18) mg/dL Creatinine 0.8 (0.8-1.3) mg/dL Est Cr Clr Drug Dosing 94.23 mL/min Estimated GFR (MDRD) > 60 (>60) Glucose 91 (74-106) mg/dL Calcium 7.9 L (8.5-10.1) mg/dL Med Orders - Current: Current Medications Acetaminophen (Tylenol) 650 mg PO Q4H PRN PRN Reason: Pain (Mild 1-3)/fever Last Admin: 01/11/17 20:59 Dose: 650 mg Albuterol (Proventil Neb Soln) 2.5 mg NEB Q4H PRN PRN Reason: Shortness Of Breath/wheezing Allopurinol (Zyloprim) 100 mg PO DAILY [facility] Last Admin: 05/03/17 09:48 Dose: 100 mg Atorvastatin Calcium (Lipitor) 40 mg PO BEDTIME [facility] Last Admin: 01/11/17 20:07 Dose: 40 mg Dextrose (Glutose 15) 15 gm PO ONETIME PRN PRN Reason: Hypoglycemia Dextrose/Water (Dextrose 50% In Water) 50 ml IV ONETIME PRN PRN Reason: Hypoglycemia Last Admin: 01/12/17 09:30 Dose: 50 ml Dextrose/Sodium Chloride (Dextrose 5%-Normal Saline) 1,000 mls @ 125 mls/hr IV ASDIRECTED [facility] Insulin Aspart (Novolog) 0 unit SUBCUT ASDIRECTED [facility] PRN Reason: Protocol Last Admin: 01/11/17 17:28 Dose: 1 units Metoprolol Succinate (Toprol Xl) 50 mg PO DAILY [facility] Last Admin: 01/11/17 09:48 Dose: 50 mg Ondansetron HCl (Zofran) 4 mg IV Q4H PRN PRN Reason: Nausea/Vomiting Oxycodone HCl (Oxycodone) 10 mg PO Q4H PRN PRN Reason: Pain (moderate 4-6) Last Admin: 01/11/17 22:42 Dose: 5 mg Pantoprazole Sodium (Protonix) 40 mg PO DAILY [facility] Sodium Chloride (Saline Flush) 10 ml FLUSH ASDIRECTED PRN PRN Reason: Keep Vein Open Discontinued Medications Bisacodyl (Dulcolax) Confirm Administered Dose 10 mg .ROUTE .STK-MED ONE Stop: 01/10/17 18:18 Last Admin: 01/10/17 19:34 Dose: Not Given Bisacodyl (Dulcolax) 10 mg PO ONETIME ONE Stop: 01/10/17 09:01 Last Admin: 01/10/17 20:17 Dose: 10 mg Bisacodyl (Dulcolax) 10 mg PO ONETIME ONE Stop: 01/10/17 20:01 Last Admin: 01/10/17 21:55 Dose: 10 mg Lactated Ringer's (Ringers, Lactated) 1,000 mls @ 500 mls/hr IV ASDIRECTED [facility] Last Admin: 01/10/17 17:07 Dose: 500 mls/hr Phytonadione 5 mg/ Sodium (Chloride) 50.5 mls @ 100 mls/hr IV NOW ONE Stop: 01/10/17 19:17 Last Admin: 01/10/17 19:45 Dose: 100 mls/hr Sodium Chloride (Normal Saline) 1,000 mls @ 125 mls/hr IV ASDIRECTED [facility] Last Admin: 01/12/17 08:23 Dose: 125 mls/hr Potassium Chloride 20 meq/Lidocaine HCl 2 ml/ Sodium Chloride 112 mls @ 56 mls/ hr IV Q2H [facility] Stop: 01/11/17 13:59 Last Admin: 01/11/17 12:48 Dose: 56 mls/hr Phytonadione 5 mg/ Sodium (Chloride) 50.5 mls @ 100 mls/hr IV ONETIME ONE Stop: 01/11/17 10:30 Last Admin: 01/11/17 09:51 Dose: 100 mls/hr Sodium Chloride (Normal Saline) 1,000 mls @ 100 mls/hr IV ASDIRECTED [facility] Pantoprazole Sodium (Protonix Iv) 40 mg IVPUSH Q12H [facility] Last Admin: 01/11/17 06:07 Dose: 40 mg Pantoprazole Sodium (Protonix Iv) 40 mg IVPUSH Q12H [facility] Last Admin: 01/12/17 05:24 Dose: 40 mg Polyethylene Glycol (Miralax) Confirm Administered Dose 238 gm .ROUTE .STK-MED ONE Stop: 01/10/17 18:17 Last Admin: 01/10/17 19:33 Dose: Not Given Polyethylene Glycol (Miralax) 238 gm PO ONETIME ONE Stop: 01/10/17 17:01 Last Admin: 01/10/17 19:42 Dose: 238 gram Sodium Chloride (Saline Flush) 10 ml FLUSH ASDIRECTED PRN PRN Reason: Keep Vein Open Last Admin: 01/10/17 17:09 Dose: 10 ml Sodium Chloride (Saline Flush) 10 ml FLUSH ASDIRECTED PRN PRN Reason: Keep Vein Open Last Admin: 01/10/17 17:09 Dose: 10 ml - Exam Quality Assessment: DVT prophylaxis General: alert, oriented, cooperative, no acute distress Lungs: Clear to auscultation, Normal respiratory effort Cardiovascular: Regular Rate, No Murmurs, Irregular Rhythm Abdomen: bowel sounds present, soft, no tenderness, no distension Extremities: no edema Skin: warm, dry, intact - Problem List Review Problem List Initiated/Reviewed/Updated: Yes - My Orders Last 24 Hours: My Active Orders 01/11/17 09:00 Allopurinol [Zyloprim] 100 mg PO DAILY Metoprolol Succinate [Toprol XL] 50 mg PO DAILY 01/11/17 21:00 atorvaSTATin [Lipitor] 40 mg PO BEDTIME 01/12/17 09:15 Dextrose 5%-0.9% NaCl [Dextrose 5%-Normal Saline] 1,000 ml IV ASDIRECTED 01/12/17 09:38 Vital Signs [RC] Q4H 01/12/17 09:45 Pantoprazole [ProTONIX] 40 mg PO DAILY 01/12/17 Breakfast Nothing per Oral After Midnight Diet [DIET] 01/13/17 05:00 CBC WITH AUTO DIFF [HEME] Timed 01/13/17 07:30 GLUCOSE POC LAB TO COLLECT [POC] QIDACANDBED 01/13/17 11:30 GLUCOSE POC LAB TO COLLECT [POC] QIDACANDBED 01/13/17 16:30 GLUCOSE POC LAB TO COLLECT [POC] QIDACANDBED 01/13/17 21:00 GLUCOSE POC LAB TO COLLECT [POC] QIDACANDBED 01/14/17 07:30 GLUCOSE POC LAB TO COLLECT [POC] QIDACANDBED 01/14/17 11:30 GLUCOSE POC LAB TO COLLECT [POC] QIDACANDBED 01/14/17 16:30 GLUCOSE POC LAB TO COLLECT [POC] QIDACANDBED 01/14/17 21:00 GLUCOSE POC LAB TO COLLECT [POC] QIDACANDBED 01/15/17 07:30 GLUCOSE POC LAB TO COLLECT [POC] QIDACANDBED 01/15/17 11:30 GLUCOSE POC LAB TO COLLECT [POC] QIDACANDBED 01/15/17 16:30 GLUCOSE POC LAB TO COLLECT [POC] QIDACANDBED 01/15/17 21:00 GLUCOSE POC LAB TO COLLECT [POC] QIDACANDBED 01/16/17 07:30 GLUCOSE POC LAB TO COLLECT [POC] QIDACANDBED 01/16/17 11:30 GLUCOSE POC LAB TO COLLECT [POC] QIDACANDBED 01/16/17 16:30 GLUCOSE POC LAB TO COLLECT [POC] QIDACANDBED 01/16/17 21:00 GLUCOSE POC LAB TO COLLECT [POC] QIDACANDBED 01/17/17 07:30 GLUCOSE POC LAB TO COLLECT [POC] QIDACANDBED 01/17/17 11:30 GLUCOSE POC LAB TO COLLECT [POC] QIDACANDBED 01/17/17 16:30 GLUCOSE POC LAB TO COLLECT [POC] QIDACANDBED 01/17/17 21:00 GLUCOSE POC LAB TO COLLECT [POC] QIDACANDBED 01/18/17 07:30 GLUCOSE POC LAB TO COLLECT [POC] QIDACANDBED 01/18/17 11:30 GLUCOSE POC LAB TO COLLECT [POC] QIDACANDBED 01/18/17 16:30 GLUCOSE POC LAB TO COLLECT [POC] QIDACANDBED 01/18/17 21:00 GLUCOSE POC LAB TO COLLECT [POC] QIDACANDBED 01/19/17 07:30 GLUCOSE POC LAB TO COLLECT [POC] QIDACANDBED 01/19/17 11:30 GLUCOSE POC LAB TO COLLECT [POC] QIDACANDBED 01/19/17 16:30 GLUCOSE POC LAB TO COLLECT [POC] QIDACANDBED 01/19/17 21:00 GLUCOSE POC LAB TO COLLECT [POC] QIDACANDBED 01/20/17 07:30 GLUCOSE POC LAB TO COLLECT [POC] QIDACANDBED 01/20/17 11:30 GLUCOSE POC LAB TO COLLECT [POC] QIDACANDBED 01/20/17 16:30 GLUCOSE POC LAB TO COLLECT [POC] QIDACANDBED 01/20/17 21:00 GLUCOSE POC LAB TO COLLECT [POC] QIDACANDBED 01/21/17 07:30 GLUCOSE POC LAB TO COLLECT [POC] QIDACANDBED 01/21/17 11:30 GLUCOSE POC LAB TO COLLECT [POC] QIDACANDBED 01/21/17 16:30 GLUCOSE POC LAB TO COLLECT [POC] QIDACANDBED - Plan Plan:: ASSESSMENT AND PLAN LOWER GI BLEED-no evidence of active bleeding since admission, INR is acceptable today to proceed with EGD and colonoscopy -N.p.o. after midnight -Protonix 40 mg by mouth daily -Type and cross to hold 2 units of red blood cells -Serial hemoglobin levels -Colonoscopy prep -EGD and colonoscopy with Dr. Palomino today TYPE 2 DIABETES MELLITUS -Hold metformin and glipizide -4 times a day glucometers -Low-dose sliding scale NovoLog CORONARY ARTERY DISEASE-currently asymptomatic -Continue outpatient medical regimen MAINTENANCE ISSUES -DVT prophylaxis;SCUDs, hold on anticoagulation because of active bleeding -GI prophylaxis;Protonix as above -Emmanuel catheter;not indicated -Nutrition;clear liquid diet, n.p.o. after midnight -Nicotine dependence;not required CODE STATUS-full code ADMISSION STATUS-patient will be admitted to inpatient status, expect at least a 2 night hospital stay for evaluation and management of problems as outlined above. At the time of this admission I do not reasonably expected evaluation and management of this problem will require more than a 96 hour hospital stay. DISPOSITION-anticipate discharge to home after the hospital stay. PRIMARY CARE PROVIDER-Dr. Ureña
[2017-01-12] MEDS ORDERED: fentaNYL 100 MCG/2 ML SDV ONE (10:27)
[2017-01-12] MEDS ORDERED: Propofol 200 MG/20 ML SDV ONE (10:27)
[2017-01-12] MEDS ORDERED: Midazolam 1 MG/ML 2 ML SDV ONE (10:28)
[2017-01-12] MEDS: Pantoprazole 40 MG Tab.CR PO SCH (13:44)
[2017-01-12] MEDS: Allopurinol 100 MG Tab PO SCH (13:44)
[2017-01-12] MEDS: Metoprolol Succinate 50 MG Tab.ER PO SCH (13:44)
[2017-01-12] MEDS: Insulin Aspart 100 Units/ML 3 ML Pen SUBCUT SCH ×2 (16:45→21:14)
[2017-01-12] MEDS: atorvaSTATin 20 MG Tab PO SCH (21:14)
--- NOTE | 2017-01-12 21:55 | OR ---
DATE OF PROCEDURE: 01/12/2017 PREOPERATIVE DIAGNOSIS: Rectal bleeding. POSTOPERATIVE DIAGNOSES: 1. Rectal bleeding associated with erosive gastritis (no active bleeding or likely recent bleeding site). 2. Excoriated hemorrhoids with otherwise normal colorectal examination. PROCEDURES: 1. Esophagogastroduodenoscopy with biopsies of antrum for CLOtest (47932). 2. Flexible colonoscopy (31515). ANESTHESIA: IV sedation. INDICATION FOR PROCEDURE: This is a 76-year-old male presenting with some bright red rectal bleeding, does have a long history of hemorrhoid problems as well as anal fissures in the past. He did not have much of a drop in the hemoglobin with the bright red rectal bleeding and this was felt most likely to be a lower GI bleeding source, and the plan was to proceed with an upper and lower endoscopy. Potential risks of procedure including bleeding and perforation were discussed, and the patient wishes to proceed. DETAILS OF PROCEDURE: The patient was taken to the operating room and placed in a left lateral decubitus position. IV sedation was administered, after which the upper GI endoscope was passed orally through the length of the esophagus into the stomach with retroflexion view of the fundus, thereafter through the pyloric channel and into the junction of the third and fourth portions of the duodenum. The hypopharynx, larynx, upper esophageal sphincter, and esophageal body were unremarkable. The patient had an intact Ashley effect at the EG junction and no gross inflammation at that level. The scope easily passed through the area of the fundoplication. Within the stomach, there was a generalized redness, which is most prominent within the antrum. There were some fine erosions present there, but nothing that would likely account for bright red rectal bleeding and no blood or bleeding was seen on today's exam. The ampulla of Vater was visualized and no tumor problems in that area were seen. The biopsies were then obtained from the antrum and sent for CLOtest for the patient's H. pylori status. No bleeding from the biopsy site was seen and the procedure then concluded with removal of the upper GI endoscope. Attention was then taken to the colonoscopy. Initial digital rectal exam was performed, which was unremarkable. Colonoscope was then passed into the rectum. Retroflexion revealed quite excoriated hemorrhoidal columns. There was no blood or bleeding, but certainly could be old blood in the period 48 hours ago at the time of the patient's presentation. The remainder of the colon exam up to the level of the cecum was unremarkable. The prep was fair. There was almost continuous thin layer of green stool along the surface of the bowel, which potentially obscured some very small polyps but there is certainly no blood or bleeding and no other pathology seen. No diverticulosis. No polyps or signs of colitis. The scope was then withdrawn and the procedure then concluded. The patient was taken to the recovery room in satisfactory condition. At this point, the presumed diagnosis for bleeding would be the hemorrhoids. Should he have recurrent bleeding, acute examination with anoscope to pinpoint the specific source and hemorrhoid bands could be applied. They other considerations in this case with the patient having the above-listed bleeding and having diffuse bruising throughout the body on exam that one consideration might be to take him off Coumadin which is being used for atrial fibrillation. Tiburcio Palomino MD /[id number]
[2017-01-12] MEDS: oxyCODONE 5 MG Tab PO PRN (22:27)
[2017-01-13] MEDS: Pantoprazole 40 MG Tab.CR PO SCH (07:16)
[2017-01-13 07:24] VITALS: BP 133/69
[2017-01-13] MEDS: Metoprolol Succinate 50 MG Tab.ER PO SCH (08:04)
[2017-01-13] MEDS: Allopurinol 100 MG Tab PO SCH (08:05)
[2017-01-13] MEDS: Insulin Aspart 100 Units/ML 3 ML Pen SUBCUT SCH (08:05)
--- NOTE | 2017-01-13 12:31 | PCM.DCSUM1 ---
Discharge Summary - Hospital Course Brief History: Mr. Vazquez is a 76-year-old gentleman who was admitted through the emergency department for further evaluation and management of hematochezia. - Discharge Data Discharge Date: 01/13/17 Discharge Disposition: Home, Self-Care 01 Condition: Fair - Discharge Diagnosis/Problem(s) (1) GI bleed SNOMED Code(s): 94715202 ICD Code: K92.2 - GASTROINTESTINAL HEMORRHAGE, UNSPECIFIED Status: Acute Current Visit: Yes Qualifiers: GI bleed type/associated pathology: unspecified gastrointestinal hemorrhage type Qualified Code(s): K92.2 - Gastrointestinal hemorrhage, unspecified (2) Diabetes mellitus type 2 SNOMED Code(s): 22115902 ICD Code: E11.9 - TYPE 2 DIABETES MELLITUS WITHOUT COMPLICATIONS Status: Chronic Priority: Medium Current Visit: No - Patient Summary/Data Hospital Course: Mr. Vazquez had experienced bloody stools for a period of 24 hours prior to admission. He denied passing blood clots but had had blood in the total water on several occasions during that period of time. Hemoglobin was mildly low at the time of admission, there was no evidence of active bleeding at that time. He was admitted to the ICU for observation and monitoring, serial hemoglobin levels remained stable following hydration with IV fluids. He did not require transfusion during his hospital stay. He was also treated with proton pump inhibitor twice daily. Warfarin and aspirin were held and his anticoagulation with warfarin was reversed with vitamin K. He does have a known history of underlying atrial fibrillation for which he is on long-term oral anticoagulation. He was seen and evaluated by Dr. Palomino, EGD was performed which showed mild gastritis. Colonoscopy was also performed which showed only excoriated inflamed hemorrhoid. He remains stable throughout his hospitalization with no evidence of active bleeding. He will be discharged home , followup appointment will be scheduled with his primary care provider Dr. Ureña within one week. Activity will be as tolerated and he will resume his usual diet. He will also resume oral anticoagulation with warfarin and plan for followup appointment in the Coumadin clinic early next week. - Patient Instructions Diet: Usual Diet as Tolerated Activity: As Tolerated Other/Special Instructions: Please schedule followup appointment with Dr. Ureña within one week. - Discharge Plan Prescriptions/Med Rec: Pantoprazole [ProTONIX] 40 mg PO DAILY@729 #30 tab.cr Home Medications: Home Meds Aspirin [Cassia Chewable Aspirin] 81 mg PO DAILY 07/14/13 [History] Furosemide [Lasix] 40 mg PO DAILY 07/14/13 [History] Metoprolol Succinate [Toprol XL] 50 mg PO DAILY 07/14/13 [History] glipiZIDE [Glucotrol XL] 20 mg PO BIDM 07/14/13 [History] Acetaminophen [Acetaminophen Extra Strength] 1,000 mg PO Q6HR PRN 02/26/14 [ History] Allopurinol [Zyloprim] 100 mg PO DAILY 02/26/14 [History] Calcium Carbonate/Vitamin D3 [Calcium 600 + Vit D Tablet] 1 tab PO DAILY [History] Fish Oil/Bapchule-3 Fatty Acids [Fish Oil 1,000 MG] 1 tab PO DAILY 02/26/14 [ History] atorvaSTATin [Lipitor] 40 mg PO DAILY 04/30/14 [History] metFORMIN [Glucophage] 1,000 mg PO DAILY 01/27/15 [History] Glucosamine/D3/Boswellia Ivet [Osteo Bi-Flex Caplet] 1 tab PO DAILY 02/09/15 [ History] Meclizine HCl 25 mg PO TID PRN 02/09/15 [History] Warfarin [Coumadin] 7.5 mg PO DAILY 11/17/15 [History] Nitroglycerin 0.4 mg SL ASDIRECTED 02/16/16 [History] Docusate Sodium [Stool Softener] 50 mg PO DAILY 01/10/17 [History] Pantoprazole [ProTONIX] 40 mg PO DAILY@0730 #30 tab.cr 01/13/17 [Rx] Referrals: Ronald Ureña MD [Primary Care Provider] - (Request Cardiac Rehab when feeling up to it.) - Patient Data Vitals - Most Recent: Last Vital Signs Temp 99.3 F 01/13/17 07:00 Pulse 60 01/13/17 08:04 Resp 18 01/13/17 07:00 BP 133/69 01/13/17 08:04 Pulse Ox 94 L 01/13/17 07:00 Weight - Most Recent: 229 lb 15.074 oz I&O - Last 24 hours: Intake & Output 01/12/17 01/13/17 01/13/17 22:59 06:59 14:59 Intake Total 480 980 Output Total 100 200 Balance 380 780 Lab Results - Last 24 hrs: Laboratory Results - last 24 hr 01/13/17 01/13/17 01/13/17 Range/Units 04:38 04:38 04:38 WBC 4.1 L (4.5-11.0) K/uL RBC 3.96 L (4.30-5.90) M/uL Hgb 12.4 (12.0-15.0) g/dL Hct 37.8 L (40.0-54.0) % MCV 96 (80-98) fL MCH 31 (27-31) pg MCHC 33 (32-36) % Plt Count 159 (150-400) K/uL PT 14.7 H (9.5-12.0) sec INR 1.37 H (0.80-1.20) Sodium 134 L (140-148) mmol/L Potassium 4.1 (3.6-5.2) mmol/L Chloride 104 (100-108) mmol/L Carbon Dioxide 21 (21-32) mmol/L Anion Gap 13.1 (5.0-14.0) mmol/L BUN 8 (7-18) mg/dL Creatinine 0.8 (0.8-1.3) mg/dL Est Cr Clr Drug Dosing 94.23 mL/min Estimated GFR (MDRD) > 60 (>60) Glucose 115 H (74-106) mg/dL Calcium 8.1 L (8.5-10.1) mg/dL Phosphorus 2.4 L (2.5-4.9) mg/dL Magnesium 1.8 (1.8-2.4) mg/dL Total Bilirubin 1.6 H (0.2-1.0) mg/dL AST 42 H (15-37) U/L ALT 11 L (12-78) U/L Alkaline Phosphatase 216 H (46-116) U/L [id number] Pept 1820 H (5-125) pg/mL Total Protein 7.4 (6.4-8.2) g/dL Albumin 2.7 L (3.4-5.0) g/dL Globulin 4.7 H (2.3-3.5) g/dL Albumin/Globulin Ratio 0.6 L (1.2-2.2) CHRISTIANO Results - Last 24 hrs: Microbiology 01/12/17 10:37 CLOtest - Final Stomach NEGATIVE CLOTEST Med Orders - Current: Current Medications Acetaminophen (Tylenol) 650 mg PO Q4H PRN PRN Reason: Pain (Mild 1-3)/fever Last Admin: 01/11/17 20:59 Dose: 650 mg Albuterol (Proventil Neb Soln) 2.5 mg NEB Q4H PRN PRN Reason: Shortness Of Breath/wheezing Allopurinol (Zyloprim) 100 mg PO DAILY [facility] Last Admin: 01/13/17 08:05 Dose: 100 mg Atorvastatin Calcium (Lipitor) 40 mg PO BEDTIME [facility] Last Admin: 01/12/17 21:14 Dose: 40 mg Dextrose (Glutose 15) 15 gm PO ONETIME PRN PRN Reason: Hypoglycemia Dextrose/Water (Dextrose 50% In Water) 50 ml IV ONETIME PRN PRN Reason: Hypoglycemia Last Admin: 01/12/17 09:30 Dose: 50 ml Insulin Aspart (Novolog) 0 unit SUBCUT ASDIRECTED [facility] PRN Reason: Protocol Last Admin: 01/13/17 08:05 Dose: 2 units Metoprolol Succinate (Toprol Xl) 50 mg PO DAILY [facility] Last Admin: 01/13/17 08:04 Dose: 50 mg Ondansetron HCl (Zofran) 4 mg IV Q4H PRN PRN Reason: Nausea/Vomiting Oxycodone HCl (Oxycodone) 10 mg PO Q4H PRN PRN Reason: Pain (moderate 4-6) Last Admin: 01/12/17 22:27 Dose: 5 mg Pantoprazole Sodium (Protonix) 40 mg PO DAILY@0730 [facility] Last Admin: 01/13/17 07:16 Dose: 40 mg Sodium Chloride (Saline Flush) 10 ml FLUSH ASDIRECTED PRN PRN Reason: Keep Vein Open Discontinued Medications Bisacodyl (Dulcolax) Confirm Administered Dose 10 mg .ROUTE .STK-MED ONE Stop: 01/10/17 18:18 Last Admin: 01/10/17 19:34 Dose: Not Given Bisacodyl (Dulcolax) 10 mg PO ONETIME ONE Stop: 01/10/17 09:01 Last Admin: 01/10/17 20:17 Dose: 10 mg Bisacodyl (Dulcolax) 10 mg PO ONETIME ONE Stop: 01/10/17 20:01 Last Admin: 01/10/17 21:55 Dose: 10 mg Fentanyl (Sublimaze) Confirm Administered Dose 100 mcg .ROUTE .STK-MED ONE Stop: 01/12/17 10:28 Lactated Ringer's (Ringers, Lactated) 1,000 mls @ 500 mls/hr IV ASDIRECTED [facility] Last Admin: 01/10/17 17:07 Dose: 500 mls/hr Phytonadione 5 mg/ Sodium (Chloride) 50.5 mls @ 100 mls/hr IV NOW ONE Stop: 01/10/17 19:17 Last Admin: 01/10/17 19:45 Dose: 100 mls/hr Sodium Chloride (Normal Saline) 1,000 mls @ 125 mls/hr IV ASDIRECTED [facility] Last Admin: 01/12/17 08:23 Dose: 125 mls/hr Potassium Chloride 20 meq/Lidocaine HCl 2 ml/ Sodium Chloride 112 mls @ 56 mls/ hr IV Q2H [facility] Stop: 01/11/17 13:59 Last Admin: 01/11/17 12:48 Dose: 56 mls/hr Phytonadione 5 mg/ Sodium (Chloride) 50.5 mls @ 100 mls/hr IV ONETIME ONE Stop: 01/11/17 10:30 Last Admin: 01/11/17 09:51 Dose: 100 mls/hr Sodium Chloride (Normal Saline) 1,000 mls @ 100 mls/hr IV ASDIRECTED [facility] Dextrose/Sodium Chloride (Dextrose 5%-Normal Saline) 1,000 mls @ 125 mls/hr IV ASDIRECTED [facility] Midazolam HCl (Versed 1 Mg/Ml) Confirm Administered Dose 2 mg .ROUTE .STK-MED ONE Stop: 01/12/17 10:29 Pantoprazole Sodium (Protonix Iv) 40 mg IVPUSH Q12H [facility] Last Admin: 01/11/17 06:07 Dose: 40 mg Pantoprazole Sodium (Protonix Iv) 40 mg IVPUSH Q12H [facility] Last Admin: 01/12/17 05:24 Dose: 40 mg Polyethylene Glycol (Miralax) Confirm Administered Dose 238 gm .ROUTE .STK-MED ONE Stop: 01/10/17 18:17 Last Admin: 01/10/17 19:33 Dose: Not Given Polyethylene Glycol (Miralax) 238 gm PO ONETIME ONE Stop: 01/10/17 17:01 Last Admin: 01/10/17 19:42 Dose: 238 gram Propofol (Diprivan 20 Ml) Confirm Administered Dose 200 mg .ROUTE .STK-MED ONE Stop: 01/12/17 10:28 Sodium Chloride (Saline Flush) 10 ml FLUSH ASDIRECTED PRN PRN Reason: Keep Vein Open Last Admin: 01/10/17 17:09 Dose: 10 ml Sodium Chloride (Saline Flush) 10 ml FLUSH ASDIRECTED PRN PRN Reason: Keep Vein Open Last Admin: 01/10/17 17:09 Dose: 10 ml *Q Meaningful Use (DIS) - VTE *Q VTE Criteria *Q: VTE Pharmacological Contraindications *Q: Active Hemorrhage - Stroke *Q Stroke Criteria *Q: - AMI *Q AMI Criteria *Q:
== END 2017-01-13 12:39 | disposition home or self-care (01) | DRG 378 ==
LOC: JP.ED 15:59 → JP.ICU 18:03 → JP.MS 01-12 11:25
PROVIDERS: ADMIT Hospitalist; ATTEND Hospitalist
PROC: 0DJD8ZZ Inspection of Lower Intestinal Tract, Via Natural or Artificial Opening Endoscopic (ICD-10-PCS; principal; 2017-01-12)
PROC: 0DB68ZX Excision of Stomach, Via Natural or Artificial Opening Endoscopic, Diagnostic (ICD-10-PCS; principal; 2017-01-12)
DX: K92.2 Gastrointestinal hemorrhage, unspecified (principal); D68.8 Other specified coagulation defects; I48.91 Unspecified atrial fibrillation; I10 Essential (primary) hypertension; E11.9 Type 2 diabetes mellitus without complications; Z79.01 Long term (current) use of anticoagulants; Z87.891 Personal history of nicotine dependence; Z79.84 Long term (current) use of oral hypoglycemic drugs; K29.60 Other gastritis without bleeding; K64.8 Other hemorrhoids; I25.10 Atherosclerotic heart disease of native coronary artery without angina pectoris; Z86.73 Personal history of transient ischemic attack (TIA), and cerebral infarction without residual deficits; M19.90 Unspecified osteoarthritis, unspecified site; Z85.46 Personal history of malignant neoplasm of prostate; K59.09 Other constipation; I25.2 Old myocardial infarction; E78.00 Pure hypercholesterolemia, unspecified; Z95.1 Presence of aortocoronary bypass graft; H35.30 Unspecified macular degeneration; H54.7 Unspecified visual loss; H91.90 Unspecified hearing loss, unspecified ear; Z96.659 Presence of unspecified artificial knee joint; Z79.82 Long term (current) use of aspirin; Z88.1 Allergy status to other antibiotic agents; Z91.040 Latex allergy status; Z88.8 Allergy status to other drugs, medicaments and biological substances
CPT/HCPCS: 36415; 80053; 83605; 85025; 85610; 85730; 86850; 86900; 86901; 86920; 86922; 96360; 96361; 99285; A9270; J7050 ×2; J7120; 80048; 82962; 83735; 83880; 84100; 85018; 85027; 87081; C9113; J2250; J2704; J3010; J3430; J3480; J7030; J7040

== ENCOUNTER 2017-01-30 16:30 | Observation (INO) | payer MEDICARE, BC, OTHER ==
--- NOTE | 2017-01-30 17:28 | EDM.PDOC ---
<Cassy Souza - Last Filed: 01/30/17 18:03> ED HPI GENERAL MEDICAL PROBLEM - General Chief Complaint: General Stated Complaint: MEDICAL Time Seen by Provider: 01/30/17 17:23 Source of Information: Reports: Patient History Limitations: Reports: No Limitations - History of Present Illness INITIAL COMMENTS - FREE TEXT/NARRATIVE: pt was discharged from the hosp on january 13. He was found to have bleeding from a hemmoroid area. He has not felt well since discharge and the last 2 days have been worse. He is not feeling self because of falling at home. Onset: Gradual Duration: Day(s):, Other (pt hs marked weakness. ) Location: Reports: Other (pt is having sob particularly with activity. ) Associated Symptoms: Reports: Shortness of Breath, Weakness Generalized Pain Score (Numeric/FACES): 2 - Related Data Allergies Allergy/AdvReac Type Severity Reaction Status Date / Time cefaclor [From Ceclor] Allergy Rash Verified 01/10/17 16:23 cefuroxime axetil Allergy Cannot Verified 01/10/17 16:23 [From Ceftin] Remember contact metal agent Allergy Cannot Verified 01/10/17 16:23 Remember diltiazem HCl [From Cardizem] Allergy Cannot Verified 01/10/17 16:23 Remember latex Allergy Rash Verified 01/10/17 16:23 metronidazole [From Flagyl] Allergy Rash Verified 01/10/17 16:23 Metronidazole HCl Allergy Rash Verified 01/10/17 16:23 [From Flagyl] naproxen [From Naprosyn] AdvReac Liver Verified 01/10/17 16:23 Problems ranitidine AdvReac Stomach Verified 01/10/17 16:23 Upset Home Meds: Home Meds Aspirin [Cassia Chewable Aspirin] 81 mg PO DAILY 07/14/13 [History] Furosemide [Lasix] 80 mg PO DAILY 07/14/13 [History] Metoprolol Succinate [Toprol XL] 50 mg PO DAILY 07/14/13 [History] glipiZIDE [Glucotrol XL] 20 mg PO BIDM 07/14/13 [History] Acetaminophen [Acetaminophen Extra Strength] 1,000 mg PO Q6HR PRN 02/26/14 [ History] Allopurinol [Zyloprim] 100 mg PO DAILY 02/26/14 [History] Calcium Carbonate/Vitamin D3 [Calcium 600 + Vit D Tablet] 1 tab PO DAILY [History] Fish Oil/[place]-3 Fatty Acids [Fish Oil 1,000 MG] 1 tab PO DAILY 02/26/14 [ History] atorvaSTATin [Lipitor] 40 mg PO DAILY 04/30/14 [History] metFORMIN [Glucophage] 1,000 mg PO DAILY 01/27/15 [History] Glucosamine/D3/Boswellia Ivet [Osteo Bi-Flex Caplet] 1 tab PO DAILY 02/09/15 [ History] Meclizine HCl 25 mg PO TID PRN 02/09/15 [History] Warfarin [Coumadin] 7.5 mg PO DAILY 11/17/15 [History] Nitroglycerin 0.4 mg SL ASDIRECTED 02/16/16 [History] Docusate Sodium [Stool Softener] 50 mg PO DAILY 01/10/17 [History] Pantoprazole [ProTONIX] 40 mg PO DAILY@0730 #30 tab.cr 01/13/17 [Rx] Past Medical History HEENT History: Reports: Cataract, Glaucoma, Hard of Hearing, Impaired Vision, Macular Degeneration, Otitis Media, Sinusitis Cardiovascular History: Reports: Afib, Bypass, CAD, High Cholesterol, Hypertension, ND, Pacemaker Respiratory History: Reports: SOB Gastrointestinal History: Reports: Chronic Constipation, Chronic Diarrhea, Other (See Below) Other Gastrointestinal History: diverticulitis, bloody stools Genitourinary History: Reports: Prostate Disorder Musculoskeletal History: Reports: Arthritis, Osteoarthritis Neurological History: Reports: CVA, TIA, Vertigo Endocrine/Metabolic History: Reports: Diabetes, Type II Hematologic History: Reports: Anticoagulation Therapy, Blood Transfusion(s) Immunologic History: Reports: None Oncologic (Cancer) History: Reports: Prostate - Infectious Disease History Infectious Disease History: Reports: Measles Other Infectious Disease History: unknown to patient - Past Surgical History HEENT Surgical History: Reports: Myringotomy w Tube(s) Cardiovascular Surgical History: Reports: Coronary Artery Bypass, Pacer GI Surgical History: Reports: Appendectomy, Cholecystectomy, Colonoscopy, Hernia , Abdominal, Hernia, Inguinal, Hernia Repair/Other Male Surgical History: Reports: TURP-Transurethral Resection of Prostate Musculoskeletal Surgical History: Reports: Knee Replacement Oncologic Surgical History: Reports: None Dermatological Surgical History: Reports: Skin Biopsy Social & Family History - Family History HEENT: Reports: Impaired Vision Cardiac: Reports: Afib, CAD, ND Respiratory: Reports: COPD GI: Reports: Cirrhosis, Pancreatitis : Reports: None OBGYN: Reports: None Musculoskeletal: Reports: Arthritis Neurological: Reports: CVA Psychiatric: Reports: None Endocrine/Metabolic: Reports: Diabetes, type II Hematologic: Reports: None Immunologic: Reports: None Dermatologic: Reports: None Oncologic: Reports: None - Tobacco Use Smoking Status *Q: Former Smoker Years of Tobacco use: 40 Packs/Tins Daily: 1 Used Tobacco, but Quit: Yes Month Tobacco Last Used: Second Hand Smoke Exposure: Yes - Caffeine Use Caffeine Use: Reports: Coffee - Alcohol Use Days Per Week of Alcohol Use: 0 - Recreational Drug Use Recreational Drug Use: No ED ROS GENERAL - Review of Systems Review Of Systems: See Below Constitutional: Reports: Weakness, Fatigue HEENT: Reports: No Symptoms Respiratory: Reports: No Symptoms Cardiovascular: Reports: No Symptoms Endocrine: Reports: No Symptoms GI/Abdominal: Reports: Abdominal Pain, Other (pt is having some tenderness and pain on the left side of the abdoman. ) : Reports: No Symptoms Musculoskeletal: Reports: Other (pt hurts all over. ) Skin: Reports: No Symptoms ED EXAM, GENERAL - Physical Exam Free Text/Narrative:: pt is a pale appearing pt who hurts all over and has pain in left abdoman. Pt is feeling very weak and does not feel safe. Exam Limited By: No Limitations General Appearance: Alert, Mild Distress Ears: Normal External Exam Nose: Normal Inspection Throat/Mouth: Normal Inspection Head: Atraumatic Neck: Normal Inspection Respiratory/Chest: No Respiratory Distress, Other (pt has a few rales at the lung base) Cardiovascular: Regular Rate, Rhythm GI/Abdominal: Other (pt is qute tender in the left lower abdoman. ) (Male) Exam: Deferred Rectal (Males) Exam: Deferred Back Exam: Normal Inspection Extremities: Other (pt has marked stasis changes. ) Neurological: Alert, Oriented, Normal Cognition Psychiatric: Depressed Mood Course - Vital Signs Last Recorded V/S: Last Vital Signs Temp 36.8 C 01/30/17 17:00 Pulse 85 01/30/17 20:18 Resp 21 H 01/30/17 20:18 BP 136/85 01/30/17 20:18 Pulse Ox 94 L 01/30/17 20:18 - Orders/Labs/Meds Orders: Active Orders 24 hr Category Date Time Status Cardiac Monitoring [RC] .As Directed Care 01/30/17 17:30 Active Abdomen Pelvis w Cont [CT] Stat Exams 01/30/17 18:01 Taken Chest 2V [CR] Stat Exams 01/30/17 17:22 Taken EHRLICHIA CHAFFEENSIS, IGG&IGM [REF] Stat Lab 01/30/17 17:23 Received LYME AB SCREEN RFLX [REF] Stat Lab 01/30/17 17:23 Received Iopamidol [Isovue-300 (61%)] Med 01/30/17 18:45 Active 150 ml IV . DIRECTED Sodium Chloride 0.9% [Saline Flush] Med 01/30/17 17:59 Active 10 ml FLUSH ASDIRECTED PRN Add On Test [COMM] Routine Oth 01/30/17 21:20 Ordered Saline Lock Insert [OM.PC] Routine Oth 01/30/17 17:59 Ordered Medication Orders Iopamidol (Isovue-300 (61%)) 150 ml IV . DIRECTED EDY Last Admin: 01/30/17 18:51 Dose: 150 ml Sodium Chloride (Saline Flush) 10 ml FLUSH ASDIRECTED PRN PRN Reason: Keep Vein Open Last Admin: 01/30/17 19:02 Dose: 10 ml Admin: 01/30/17 18:51 Dose: 10 ml Labs: Laboratory Tests 01/30/17 01/30/17 01/30/17 Range/Units 17:23 17:23 17:23 WBC 3.5 L (4.5-11.0) K/uL RBC 3.97 L (4.30-5.90) M/uL Hgb 12.4 (12.0-15.0) g/dL Hct 37.7 L (40.0-54.0) % MCV 95 (80-98) fL MCH 31 (27-31) pg MCHC 33 (32-36) % Plt Count 154 (150-400) K/uL Neut % (Auto) 53 (36-66) % Lymph % (Auto) 28 (24-44) % Emm[place] % (Auto) 13 H (2-6) % Eos % (Auto) 5 H (2-4) % Baso % (Auto) 1 (0-1) % PT 53.1 H (9.5-12.0) sec INR 4.77 H* D (0.80-1.20) Sodium 139 L (140-148) mmol/L Potassium 3.6 (3.6-5.2) mmol/L Chloride 102 (100-108) mmol/L Carbon Dioxide 30 (21-32) mmol/L Anion Gap 10.6 (5.0-14.0) mmol/L BUN 10 (7-18) mg/dL Creatinine 1.0 (0.8-1.3) mg/dL Est Cr Clr Drug Dosing 75.38 mL/min Estimated GFR (MDRD) > 60 (>60) Glucose 140 H (74-106) mg/dL Calcium 8.5 (8.5-10.1) mg/dL Total Bilirubin 1.2 H (0.2-1.0) mg/dL AST 45 H (15-37) U/L ALT 23 D (12-78) U/L Alkaline Phosphatase 190 H (46-116) U/L C-Reactive Protein (0.0-0.3) mg/dL Sfr-D-[id number] Pept (5-125) pg/mL Total Protein 7.6 (6.4-8.2) g/dL Albumin 2.9 L (3.4-5.0) g/dL Globulin 4.7 H (2.3-3.5) g/dL Albumin/Globulin Ratio 0.6 L (1.2-2.2) Urine Color Urine Appearance Urine pH (4.5-8.0) Ur Specific [place] (1.008-1.030) Urine Protein (NEGATIVE) mg/dL Urine Glucose (UA) (NEGATIVE) mg/dL Urine Ketones (NEGATIVE) mg/dL Urine Occult Blood (NEGATIVE) Urine Nitrite (NEGAITVE) Urine Bilirubin (NEGATIVE) Urine Urobilinogen (NORMAL) mg/dL Ur Leukocyte Esterase (NEGATIVE) Urine RBC (0-5) Urine WBC (0-5) Ur Epithelial Cells Amorphous Sediment Urine Bacteria Urine Mucus 01/30/17 01/30/17 Range/Units 17:23 19:29 WBC (4.5-11.0) K/uL RBC (4.30-5.90) M/uL Hgb (12.0-15.0) g/dL Hct (40.0-54.0) % MCV (80-98) fL MCH (27-31) pg MCHC (32-36) % Plt Count (150-400) K/uL Neut % (Auto) (36-66) % Lymph % (Auto) (24-44) % Emmet % (Auto) (2-6) % Eos % (Auto) (2-4) % Baso % (Auto) (0-1) % PT (9.5-12.0) sec INR (0.80-1.20) Sodium (140-148) mmol/L Potassium (3.6-5.2) mmol/L Chloride (100-108) mmol/L Carbon Dioxide (21-32) mmol/L Anion Gap (5.0-14.0) mmol/L BUN (7-18) mg/dL Creatinine (0.8-1.3) mg/dL Est Cr Clr Drug Dosing mL/min Estimated GFR (MDRD) (>60) Glucose (74-106) mg/dL Calcium (8.5-10.1) mg/dL Total Bilirubin (0.2-1.0) mg/dL AST (15-37) U/L ALT (12-78) U/L Alkaline Phosphatase (46-116) U/L C-Reactive Protein 0.66 H (0.0-0.3) mg/dL Wxh-[id number]-Bxypsykukqw Pept 2407 H (5-125) pg/mL Total Protein (6.4-8.2) g/dL Albumin (3.4-5.0) g/dL Globulin (2.3-3.5) g/dL Albumin/Globulin Ratio (1.2-2.2) Urine Color Yellow Urine Appearance Clear Urine pH 7.0 (4.5-8.0) Ur Specific [place] 1.010 (1.008-1.030) Urine Protein Negative (NEGATIVE) mg/dL Urine Glucose (UA) Normal (NEGATIVE) mg/dL Urine Ketones Negative (NEGATIVE) mg/dL Urine Occult Blood Negative (NEGATIVE) Urine Nitrite Negative (NEGAITVE) Urine Bilirubin Negative (NEGATIVE) Urine Urobilinogen Normal (NORMAL) mg/dL Ur Leukocyte Esterase Negative (NEGATIVE) Urine RBC Not seen (0-5) Urine WBC Not seen (0-5) Ur Epithelial Cells Rare Amorphous Sediment Not seen Urine Bacteria Not seen Urine Mucus Not seen Meds: Medications Generic Name Dose Route Start Last Admin Trade Name Octavio PRN Reason Stop Dose Admin Iopamidol 150 ml 01/30/17 18:45 01/30/17 18:51 Isovue-300 (61%) IV 150 ml . DIRECTED EDY Administration Sodium Chloride 10 ml 01/30/17 17:59 01/30/17 19:02 Saline Flush FLUSH 10 ml ASDIRECTED PRN Administration Keep Vein Open Discontinued Medications Generic Name Dose Route Start Last Admin Trade Name Octavio PRN Reason Stop Dose Admin Furosemide 60 mg 01/30/17 17:59 01/30/17 19:00 Lasix IVPUSH 01/30/17 18:00 60 mg ONETIME ONE Administration Sodium Chloride 85 mls @ 3 mls/sec 01/30/17 18:32 01/30/17 18:51 Normal Saline IV 01/30/17 18:33 3 mls/sec ONETIME ONE Administration Sodium Chloride 10 ml 01/30/17 18:32 01/30/17 19:06 Normal Saline FLUSH 01/30/17 18:33 10 ml ONETIME ONE Administration - Re-Assessments/Exams Free Text/Narrative Re-Assessment/Exam: 01/30/17 18:03 pt had a chest xray which showed incresed congestion, his bnp is more elevated 1800to 2400. His Inr is grater thn 4. His sgot, is elevated. He has tended to be constipated. He has pain in the left lower abdoman. will proceed with a cat scan of the abdoman Departure - Departure Disposition: Refer to Observation Clinical Impression: CHF, Congestive heart failure - Discharge Information - My Orders Last 24 Hours: My Active Orders 01/30/17 18:45 Iopamidol [Isovue-300 (61%)] 150 ml IV . DIRECTED 01/30/17 21:20 Add On Test [COMM] Routine - Assessment/Plan Last 24 Hours: My Active Orders 01/30/17 18:45 Iopamidol [Isovue-300 (61%)] 150 ml IV . DIRECTED 01/30/17 21:20 Add On Test [COMM] Routine <Prashant Tinsley - Last Filed: 01/30/17 21:24> ED EXAM, GENERAL - Physical Exam Exam: See Below Course - Re-Assessments/Exams Free Text/Narrative Re-Assessment/Exam: 01/30/17 20:36 Transferred to my care from Dr. Sandhu, Patient's main complaint seems to be not feeling well He stated that when he arrived in emergency today, he felt worse than when he left hospital on January 13. He had been hospitalized a second time a 5 with bloody stools and some concerns about weakness. Hemoglobin was stable in the hospital. He underwent gastroscopy which showed mild gastritis and colonoscopy which showed a single inflamed hemorrhoids. He was discharged home; he felt he was discharged to soon, felt that "they should have revealed the problem". He generally feels weak, he feels "not safe at home". He is concerned that he might fall, on the other hand he tells me that he gets around fine using his cane. He has not had any falls today. He does use furniture to support himself as well as his cane. He's been diagnosed with an inferior problem for which she is on medication. He reports to me that he feels a bit better now, he has urinated considerable amount of urine since he was given intravenous furosemide earlier. Chest x-ray by my interpretation shows worsening CHF compared to previous, there is a small right pleural effusion and possibly left-sided as well, curly B. lines are present as well as cardiomegaly, although the vascular congestion is mild. Lab tests show an INR of 4.77 Hemoglobin 12.4 which is similar to previous, urinalysis normal, glucose 140, mild elevation of AST and bilirubin 1.2, the bilirubin is an improvement of previous BNP is much higher at 2407 Because of abdominal pain, a CT scan had been ordered This does show moderate ascites, bilateral pleural effusions bigger on the right , subcutaneous edema, and duodenal wall prominence which might suggest duodenitis. He is on Protonix daily there are some pancreatic lesions followup is recommended for Also cardiomegaly with diminished right cardiac function. On exam the patient does have bilateral leg edema which she reports is improved compared to previous and in addition has moderate crepitations lung bases. He does have some shortness of breath with sitting up but he is able to move without assistance. Ambulated in emergencyreasonably well but still some concern about potential for falls In view of his significant CHF and ascites, recommended overnight admission His physician is on-call and was Assessment CHF, primarily diastolic, with pleural effusions and cardiomegaly as well as ascites and peripheral edema Elevated INR Duodenitis Pancreatic lesions 01/30/17 21:22 Departure - Departure Time of Disposition: 21:23 Condition: fair
[2017-01-30] MEDS ORDERED: Furosemide 40 MG/4 ML VIAL IVPUSH ONE (17:59)
[2017-01-30] MEDS ORDERED: Sodium Chloride 0.9% 10 ML SDV FLUSH ONE (18:32)
[2017-01-30] MEDS ORDERED: Iopamidol 612 MG/ML 150 ML Bottle IV SCH (18:45)
[2017-01-30] MEDS: Sodium Chloride 0.9% 10 ML Syringe FLUSH PRN ×2 (18:51→19:02)
[2017-01-30] MEDS ORDERED: Acetaminophen 325 MG Tab PO PRN (22:16)
[2017-01-30] MEDS ORDERED: Sodium Chloride 0.9% 10 ML Syringe FLUSH PRN (22:16)
[2017-01-30] MEDS ORDERED: GLIPIZIDE 20 MG PO SCH (22:45)
[2017-01-30] MEDS ORDERED: Meclizine 25 MG Tab PO PRN (23:01)
[2017-01-30] MEDS ORDERED: Nitroglycerin 0.4 MG Tab.SL SL PRN (23:15)
--- NOTE | 2017-01-31 01:44 | HP ---
CHIEF COMPLAINT: Swelling, shortness of breath, and abdominal pain. HISTORY OF PRESENT ILLNESS: A 76-year-old, who was admitted on 01/10/2017 with hematochezia with no suspected source for bleeding identified on upper and lower endoscopy, the patient stated that he just did not feel well today and had abdominal pain, initially on the left side, and then moved to the right side in the right upper quadrant, nausea without vomiting, but has not been able to throw up for years, increasing shortness of breath with orthopnea, and increasing swelling in his legs and just not feeling well came to the emergency room, was felt to be fluid overloaded. With the abdominal pain, they did do a CT scan of the abdomen that showed moderate ascites, pleural effusions, right greater than left, cutaneous edema, mild duodenal wall prominence versus under distention, apparent small pancreatic lesions etiology uncertain, cardiomegaly, biatrial enlargement. The patient given 60 mg of IV Lasix and was feeling better, but was still feeling quite weak and risk of falling, living by himself. I was asked to the patient further evaluation and treatment. The patient has had no chest pain. PAST MEDICAL HISTORY: 1. Recent hospitalization for hematochezia, he is on chronic anticoagulation. 2. Type 2 diabetes mellitus. 3. CHF. 4. Cataract. 5. Glaucoma. 6. Decreased hearing. 7. Macular degeneration. 8. Atrial fibrillation. 9. Coronary artery disease with bypass surgery. 10.Essential hypertension. 11.Pacemaker. 12.Chronic constipation and also chronic diarrhea. 13.History of diverticulitis in the past. 14.Osteoarthritis. 15.Stroke, TIA in the past. 16.History of vertigo. 17.Prostate cancer. MEDICATIONS: 1. Aspirin 81 mg daily. 2. Lasix 40 mg daily. 3. Toprol-XL 50 mg daily. 4. Glipizide XL 20 mg b.i.d. 5. Acetaminophen p.r.n. 6. Allopurinol 100 mg daily. 7. Calcium with vitamin D. 8. [place]-3 fish oil 1000 mg daily. 9. Atorvastatin 40 mg daily. 10.Metformin 1000 mg daily. 11.Meclizine p.r.n. 12.Warfarin 7.5 mg daily. 13.Nitroglycerin, but has not had to take. 14.Protonix 40 mg daily. ALLERGIES: MULTIPLE ALLERGIES TO CECLOR, CEFTIN, METAL, DILTIAZEM, LATEX, METRONIDAZOLE, NAPROXEN, AND RANITIDINE. SOCIAL HISTORY: He is not smoker. FAMILY HISTORY: Unknown. REVIEW OF SYSTEMS: Denies headache, vision changes, although he does have poor vision and decreased hearing. No chest pain. Does report some shortness of breath. Feels tight in his chest. Some orthopnea. Has had some nausea, but has not been able to throw up. He has not noticed any blood in his stools, which he has had recently, but denies any dysuria. He does report swelling in his legs, which has been increased lately. Denies any specific skin problems other than stasis dermatitis to his legs. Denies any orthopedic complaints. No neurologic complaints reported. OBJECTIVE: VITAL SIGNS: Weight 104.3 kg. Temperature 36.8, pulse 55, blood pressure 146/75, respirations 16, and O2 saturation 98% on room air. GENERAL: The patient is alert and oriented x3. HEENT: Pharynx is clear. NECK: Supple. No adenopathy, thyromegaly, JVD, or bruits. LUNGS: Decreased in the bases, but otherwise, sounds very clear. HEART: Irregularly irregular. ABDOMEN: A little bit bloated, but not overly distended. No mass or organomegaly palpated. Unable to reproduce any pain right now. EXTREMITIES: He does have edema of his knee bilaterally with stasis dermatitis to his ankles and lower legs. NEUROLOGIC: Cranial nerves II through XII are grossly intact. LABORATORY DATA: White count 3.5, hemoglobin 12.4, and platelets 154,000. Pro-time was 53.1 with an INR of 4.77. Sodium 139, potassium 3.6, BUN was 10, creatinine 1.0, GFR 75, and glucose 140. AST is slightly elevated at 45, ALT is normal at 23, and alkaline phosphatase elevated at 190. Troponin 0.042. C-reactive protein was 0.66. BNP was 2407. Urinalysis was unremarkable. CT scan of the abdomen, results as above. ASSESSMENT: 1. Congestive heart failure. Has had good relief so far with 60 mg IV Lasix. We will give him another 60 at midnight. 2. Abdominal pain with ascites seen on CT scan, otherwise really nothing specific. It sounds like he has had blood in his stool, although today, he has not noticed anything. INR is elevated, so we will hold his Coumadin today and recheck his INR in the morning. 3. Type 2 diabetes mellitus, b.i.d. Accu-Chek, continue with the same medication. He is just on oral agents. 4. History of significant heart history in the past. It looks like he does have congestive heart failure. 5. Other medical problems as listed above. We will admit him under observation. Anticipate less than 2 midnights stay. Ronlad Ureña MD /[id number]
[2017-01-31] MEDS ORDERED: Furosemide 40 MG/4 ML VIAL IVPUSH ONE (03:38)
[2017-01-31 06:59] VITALS: BP 108/56
[2017-01-31] MEDS ORDERED: Pantoprazole 40 MG Tab.CR PO SCH (07:30)
[2017-01-31] MEDS ORDERED: metFORMIN 500 MG Tab PO SCH (08:00)
--- NOTE | 2017-01-31 08:11 | CR ---
Moderate cardiomegaly. Linear interstitial process in the upper lobes could indicate interstitial pu lmonary edema. Trace pleural effusion with atelectasis or infiltrate lung bases.
[2017-01-31] MEDS ORDERED: Docusate Sodium Liquid 100 MG/10 ML UD Cup PO SCH (09:00)
[2017-01-31] MEDS ORDERED: Aspirin 81 MG Tab.Chew PO SCH (09:00)
[2017-01-31] MEDS ORDERED: Metoprolol Succinate 50 MG Tab.ER PO SCH (09:00)
[2017-01-31] MEDS ORDERED: atorvaSTATin 20 MG Tab PO SCH (09:00)
[2017-01-31] MEDS ORDERED: Allopurinol 100 MG Tab PO SCH (09:00)
--- NOTE | 2017-02-01 03:36 | DISCH ---
DISCHARGE DIAGNOSES: 1. Congestive heart failure. 2. Coronary artery disease. 3. Atrial fibrillation with pacemaker placed in the past. 4. Recent problems with gastrointestinal bleed. 5. Stable hemoglobin. 6. Weakness and fatigue. PROCEDURE DURING HOSPITALIZATION: None. REASON FOR HOSPITALIZATION: A 76-year-old with history of coronary artery disease and CHF started getting more shortness of breath, weakness, fatigue, with increased swelling in his legs came into the emergency room for further evaluation, was given IV Lasix. He was complaining of abdominal pain too. They did do a CT scan, which showed ascites, but otherwise no other focal findings other than some tiny pancreatic spots. The patient did receive 60 of Lasix in the ER, which did improve, but was still weak and I was asked to admit the patient for further evaluation and treatment, and was admitted under observation. Significant findings; white count on admission was 33.5, hemoglobin 12.4, which did drop to 11.8 on discharge, and platelets 154,000. INR on admission was 4.77 and was 4.73 on discharge. Sodium 139, potassium 3.6, chloride 102, BUN is 10, creatinine 1.0, and glucose 140. Liver function, AST was elevated, but ALT was normal, alkaline phosphatase was elevated at 190, and C-reactive protein was elevated at 0.66. Troponin was 0.042. BNP was elevated at 20,407. Urinalysis was unremarkable. CT scan of the abdomen showed ascites, abnormality in the pancreas is too small to quantify. HOSPITAL COURSE: The patient was admitted. He was given initial 60 mg of IV Lasix, was given another dose during the night and diuresed well. His breathing was better. Overall, felt like he was just fatigued. Swelling was better in his legs and had no abnormalities, otherwise seen on telemetry. DISCHARGE DISPOSITION: Discharged. Continue with his current home medications. Follow up with me in a week. Avoid salt in his diet. He did desire and was told he should get in the cardiac rehab, which we did place an order, but I will check on this because they have not seen anything yet. He is to return if his condition worsens. In the meantime, he also need to follow up with [facility] as directed.
== END 2017-01-31 10:00 | disposition home or self-care (01) ==
LOC: JP.ED 16:30 → JP.MS 22:16
PROVIDERS: ADMIT Family Medicine; ATTEND Family Medicine
DX: I50.9 Heart failure, unspecified (principal); I25.810 Atherosclerosis of coronary artery bypass graft(s) without angina pectoris; I48.91 Unspecified atrial fibrillation; R53.1 Weakness; I10 Essential (primary) hypertension; E11.9 Type 2 diabetes mellitus without complications; Z79.82 Long term (current) use of aspirin; Z79.01 Long term (current) use of anticoagulants; Z95.0 Presence of cardiac pacemaker; Z79.84 Long term (current) use of oral hypoglycemic drugs; Z79.899 Other long term (current) drug therapy; Z91.040 Latex allergy status; Z88.8 Allergy status to other drugs, medicaments and biological substances; Z91.09 Other allergy status, other than to drugs and biological substances
CPT/HCPCS: 36415; 71020; 74177; 80048; 80053; 81001; 83880; 84484; 85025; 85027; 85610; 86140; 86618; 86666; 96374; 96376; 99285; G0378; J1940; J7030; J7050

== ENCOUNTER 2017-02-26 07:08 | Emergency (ER) | payer MEDICARE, BC, OTHER ==
[2017-02-26 07:32] VITALS: BP 147/34
--- NOTE | 2017-02-26 08:31 | EDM.PDOC ---
ED HPI GENERAL MEDICAL PROBLEM - General Chief Complaint: Genitourinary Problem Stated Complaint: BLADDER INFECTION Time Seen by Provider: 02/26/17 07:49 Source of Information: Reports: Patient, RN Notes Reviewed (I would like to take like to have him take his medication he said his son would bring in an) History Limitations: Reports: No Limitations - History of Present Illness INITIAL COMMENTS - FREE TEXT/NARRATIVE: 76-year-old gentleman presents emergency department today concern for urinary tract infection he states over the last week or so he's noticed he's had a decreased amount of urine that he produces as well as increase in frequency does have a history of prostatectomy in the past as well as diabetes mellitus type 2 and history of congestive heart failure. He states that he is also been more short of breath over the last month And had significant weight gain of 20 pounds over the last month he is no longer taking his water pill - Related Data Allergies Allergy/AdvReac Type Severity Reaction Status Date / Time cefaclor [From Ceclor] Allergy Rash Verified 02/26/17 07:33 cefuroxime axetil Allergy Cannot Verified 02/26/17 07:33 [From Ceftin] Remember contact metal agent Allergy Cannot Verified 02/26/17 07:33 Remember diltiazem HCl [From Cardizem] Allergy Cannot Verified 02/26/17 07:33 Remember latex Allergy Rash Verified 02/26/17 07:33 metronidazole [From Flagyl] Allergy Rash Verified 02/26/17 07:33 Metronidazole HCl Allergy Rash Verified 02/26/17 07:33 [From Flagyl] naproxen [From Naprosyn] AdvReac Liver Verified 02/26/17 07:33 Problems ranitidine AdvReac Stomach Verified 02/26/17 07:33 Upset Home Meds: Home Meds Furosemide [Lasix] 80 mg PO DAILY 07/14/13 [History] Acetaminophen [Acetaminophen Extra Strength] 1,000 mg PO Q6HR PRN 02/26/14 [ History] Calcium Carbonate/Vitamin D3 [Calcium 600 + Vit D Tablet] 1 tab PO DAILY [History] Fish Oil/[place]-3 Fatty Acids [Fish Oil 1,000 MG] 1 tab PO DAILY 02/26/14 [ History] Glucosamine/D3/[place]os[place]ia Ivet [Osteo Bi-Flex Caplet] 1 tab PO DAILY 02/09/15 [ History] Meclizine HCl 25 mg PO TID PRN 02/09/15 [History] Warfarin [Coumadin] 7.5 mg PO DAILY 11/17/15 [History] Allopurinol [Zyloprim] 100 mg PO DAILY tablet 01/31/17 [Rx] Aspirin 81 mg PO DAILY tab.chew 01/31/17 [Rx] Docusate Sodium [Colace 50 MG/5 ML Liquid] 50 mg PO DAILY cup 01/31/17 [Rx] Metoprolol Succinate [Toprol XL] 50 mg PO DAILY tab.er 01/31/17 [Rx] Nitroglycerin [IJP: Nitroglycerin] 0.4 mg SL ASDIRECTED PRN #0 tablet, sublingual 01/31/17 [Rx] Pantoprazole [ProTONIX] 40 mg PO ACBREAKFAST tab.cr 01/31/17 [Rx] atorvaSTATin [Lipitor] 40 mg PO DAILY tablet 01/31/17 [Rx] glipiZIDE [Glucotrol XL] 20 mg PO BIDM 01/31/17 [Rx] metFORMIN [Glucophage] 1,000 mg PO DAILY@0800 tablet 01/31/17 [Rx] Past Medical History HEENT History: Reports: Cataract, Glaucoma, Hard of Hearing, Impaired Vision, Macular Degeneration, Otitis Media, Sinusitis Cardiovascular History: Reports: Afib, Bypass, CAD, High Cholesterol, Hypertension, [place], Pacemaker Respiratory History: Reports: SOB Gastrointestinal History: Reports: Chronic Constipation, Chronic Diarrhea, Other (See Below) Other Gastrointestinal History: diverticulitis, bloody stools Genitourinary History: Reports: Prostate Disorder Musculoskeletal History: Reports: Arthritis, Osteoarthritis Neurological History: Reports: CVA, TIA, Vertigo Endocrine/Metabolic History: Reports: Diabetes, Type II Hematologic History: Reports: Anticoagulation Therapy, Blood Transfusion(s) Immunologic History: Reports: None Oncologic (Cancer) History: Reports: Prostate - Infectious Disease History Infectious Disease History: Reports: Measles Other Infectious Disease History: unknown to patient - Past Surgical History HEENT Surgical History: Reports: Myringotomy w Tube(s) Cardiovascular Surgical History: Reports: Coronary Artery Bypass, Pacer GI Surgical History: Reports: Appendectomy, Cholecystectomy, Colonoscopy, Hernia , Abdominal, Hernia, Inguinal, Hernia Repair/Other Male Surgical History: Reports: TURP-Transurethral Resection of Prostate Musculoskeletal Surgical History: Reports: Knee Replacement Oncologic Surgical History: Reports: None Dermatological Surgical History: Reports: Skin Biopsy Social & Family History - Family History HEENT: Reports: Impaired Vision Cardiac: Reports: Afib, CAD, [place] Respiratory: Reports: COPD GI: Reports: Cirrhosis, Pancreatitis : Reports: None OBGYN: Reports: None Musculoskeletal: Reports: Arthritis Neurological: Reports: CVA Psychiatric: Reports: None Endocrine/Metabolic: Reports: Diabetes, type II Hematologic: Reports: None Immunologic: Reports: None Dermatologic: Reports: None Oncologic: Reports: None - Tobacco Use Smoking Status *Q: Former Smoker Years of Tobacco use: 42 Packs/Tins Daily: 1 Used Tobacco, but Quit: Yes Month Tobacco Last Used: 1950 Second Hand Smoke Exposure: Yes - Caffeine Use Caffeine Use: Reports: Coffee - Alcohol Use Days Per Week of Alcohol Use: 1 Number of Drinks Per Day: 0 Total Drinks Per Week: 0 - Recreational Drug Use Recreational Drug Use: No ED ROS GENERAL - Review of Systems Review Of Systems: See Below Constitutional: Reports: Weight Gain. Denies: Fever, Chills HEENT: Reports: No Symptoms Respiratory: Reports: Shortness of Breath. Denies: Cough, Sputum Cardiovascular: Reports: Dyspnea on Exertion. Denies: Chest Pain GI/Abdominal: Reports: No Symptoms : Reports: Frequency, Other (Urine volume) Musculoskeletal: Reports: No Symptoms Skin: Reports: Wound (Chronic venous stasis dermatitis wounds) Neurological: Reports: No Symptoms ED EXAM, GENERAL - Physical Exam Exam: See Below Free Text/Narrative:: General: Elderly male, not in any distress, alert and oriented x3 HEENT: head is atraumatic normocephalic, eyes pupils equal round reactive to light, sclera clear no conjunctivitis appreciated. Ears hearing aids in place bilaterally Nose no septal deviation, nares are clear, no blood present. Mouth mucosa is moist and pink no erythema or exudate noted in soft palate, tongue is midline uvula is absent, lower dentures in place. Neck: Supple no thyromegaly no tracheal deviation. Nodes: Cervical nodes subclavicular nodes nontender no palpable lymphadenopathy noted. Lungs: Distant breath sounds on appreciate any adventitious noises. CV: Irregularly irregular rate and rhythm S1 and S2 appreciated no murmurs rubs or gallops noted. Abdomen: Soft, nontender, no palpable masses or organomegaly appreciated, moderate distention no guarding bowel sounds are present, . Neuro: Cranial nerves II through XII grossly intact Skin: Venous stasis wounds lower extremities bilaterally Extremities: +1 pitting edema bilaterally Course - Vital Signs Last Recorded V/S: Last Vital Signs Temp 96.8 F 02/26/17 07:41 Pulse 65 02/26/17 07:41 Resp 15 02/26/17 07:41 BP 147/34 H 02/26/17 07:41 Pulse Ox 94 L 02/26/17 07:41 - Orders/Labs/Meds Orders: Active Orders 24 hr Category Date Time Status Bladder Scan [RC] ONETIME Care 02/26/17 07:49 Active EKG Documentation Completion [RC] ASDIRECTED Care 02/26/17 08:26 Active Chest 2V [CR] Urgent Exams 02/26/17 08:25 Taken EKG 12 Lead [EK] Urgent Ther 02/26/17 08:25 Ordered Labs: Laboratory Tests 02/26/17 02/26/17 02/26/17 Range/Units 08:06 08:37 08:37 WBC 4.1 L (4.5-11.0) K/uL RBC 3.79 L (4.30-5.90) M/uL Hgb 11.7 L (12.0-15.0) g/dL Hct 35.8 L (40.0-54.0) % MCV 95 (80-98) fL MCH 31 (27-31) pg MCHC 33 (32-36) % Plt Count 146 L (150-400) K/uL Neut % (Auto) 51 (36-66) % Lymph % (Auto) 29 (24-44) % [place] % (Auto) 12 H (2-6) % Eos % (Auto) 7 H (2-4) % Baso % (Auto) 1 (0-1) % PT (9.5-12.0) sec INR (0.80-1.20) Sodium 140 (140-148) mmol/L Potassium 3.7 (3.6-5.2) mmol/L Chloride 106 (100-108) mmol/L Carbon Dioxide 26 (21-32) mmol/L Anion Gap 8.4 (5.0-14.0) mmol/L BUN 9 (7-18) mg/dL Creatinine 0.9 (0.8-1.3) mg/dL Est Cr Clr Drug Dosing 83.76 mL/min Estimated GFR (MDRD) > 60 (>60) Glucose 82 (74-106) mg/dL Calcium 8.9 (8.5-10.1) mg/dL Total Bilirubin 1.6 H (0.2-1.0) mg/dL AST 41 H (15-37) U/L ALT 16 (12-78) U/L Alkaline Phosphatase 174 H (46-116) U/L Troponin I 0.043 (0.000-0.056) ng/mL [id number] Pept (5-125) pg/mL Total Protein 7.1 (6.4-8.2) g/dL Albumin 2.7 L (3.4-5.0) g/dL Globulin 4.4 H (2.3-3.5) g/dL Albumin/Globulin Ratio 0.6 L (1.2-2.2) Urine Color Yellow Urine Appearance Slightly cloudy Urine pH 5.0 (4.5-8.0) Ur Specific [place] 1.020 (1.008-1.030) Urine Protein Trace (NEGATIVE) mg/dL Urine Glucose (UA) Normal (NEGATIVE) mg/dL Urine Ketones Negative (NEGATIVE) mg/dL Urine Occult Blood Negative (NEGATIVE) Urine Nitrite Negative (NEGAITVE) Urine Bilirubin Small (NEGATIVE) Urine Urobilinogen 4 (NORMAL) mg/dL Ur Leukocyte Esterase Negative (NEGATIVE) Urine RBC 0-5 (0-5) Urine WBC 0-5 (0-5) Ur Epithelial Cells Rare Amorphous Sediment Not seen Urine Bacteria Not seen Urine Mucus Not seen Urine Other 02/26/17 02/26/17 Range/Units 08:37 08:37 WBC (4.5-11.0) K/uL RBC (4.30-5.90) M/uL Hgb (12.0-15.0) g/dL Hct (40.0-54.0) % MCV (80-98) fL MCH (27-31) pg MCHC (32-36) % Plt Count (150-400) K/uL Neut % (Auto) (36-66) % Lymph % (Auto) (24-44) % [place] % (Auto) (2-6) % Eos % (Auto) (2-4) % Baso % (Auto) (0-1) % PT 37.5 H (9.5-12.0) sec INR 3.33 H (0.80-1.20) Sodium (140-148) mmol/L Potassium (3.6-5.2) mmol/L Chloride (100-108) mmol/L Carbon Dioxide (21-32) mmol/L Anion Gap (5.0-14.0) mmol/L BUN (7-18) mg/dL Creatinine (0.8-1.3) mg/dL Est Cr Clr Drug Dosing mL/min Estimated GFR (MDRD) (>60) Glucose (74-106) mg/dL Calcium (8.5-10.1) mg/dL Total Bilirubin (0.2-1.0) mg/dL AST (15-37) U/L ALT (12-78) U/L Alkaline Phosphatase (46-116) U/L Troponin I (0.000-0.056) ng/mL [id number] Pept 1735 H (5-125) pg/mL Total Protein (6.4-8.2) g/dL Albumin (3.4-5.0) g/dL Globulin (2.3-3.5) g/dL Albumin/Globulin Ratio (1.2-2.2) Urine Color Urine Appearance Urine pH (4.5-8.0) Ur Specific [place] (1.008-1.030) Urine Protein (NEGATIVE) mg/dL Urine Glucose (UA) (NEGATIVE) mg/dL Urine Ketones (NEGATIVE) mg/dL Urine Occult Blood (NEGATIVE) Urine Nitrite (NEGAITVE) Urine Bilirubin (NEGATIVE) Urine Urobilinogen (NORMAL) mg/dL Ur Leukocyte Esterase (NEGATIVE) Urine RBC (0-5) Urine WBC (0-5) Ur Epithelial Cells Amorphous Sediment Urine Bacteria Urine Mucus Urine Other Departure - Departure Time of Disposition: 09:44 Disposition: Home, Self-Care 01 Condition: Good Clinical Impression: CHF, Congestive heart failure - Discharge Information Forms: ED Department Discharge Additional Instructions: Stop your Lasix or furosemide, start the new medication of Bumex 2 mg 1 tablet twice a day recommend following up with your primary care provider in the next 3 -5 days for reevaluation including a basic metabolic panel for lab work - My Orders Last 24 Hours: My Active Orders 06/18/17 07:49 Bladder Scan [RC] ONETIME 02/26/17 08:25 Chest 2V [CR] Urgent EKG 12 Lead [EK] Urgent 02/26/17 08:26 EKG Documentation Completion [RC] ASDIRECTED - Assessment/Plan Last 24 Hours: My Active Orders 02/26/17 07:49 Bladder Scan [RC] ONETIME 02/26/17 08:25 Chest 2V [CR] Urgent EKG 12 Lead [EK] Urgent 02/26/17 08:26 EKG Documentation Completion [RC] ASDIRECTED Plan: Assessment Acuity = acute on chronic Site and laterality = congestive heart failure complicated patient with known history of coronary artery disease, diabetes mellitus type 2 and atrial fibrillation on chronic anticoagulation Etiology = medication adjustment Manifestations = shortness of breath Location of injury = home Lab values = hemoglobin low 11.7 consistent normochromic anemia INR therapeutic at 3.33 bilirubin elevated 1.6 consistent hyperbilirubinemia BNP elevated 1735 consistent with congestive heart failure type pattern albumin low at 2.7 consistent hypoalbuminemia urinalysis unremarkable chest x-ray shows cardiomegaly with fluid overload type pattern EKG demonstrates paced rhythm Plan Did discuss lab EKG chest x-ray results with him he has adjusted his Lasix to 40 mg once a day instead of the AV which has been prescribed because he felt it did not work as well for him. To stop the Lasix started on Bumex 2 mg by mouth twice a day him follow-up primary care in 3-5 days for reevaluation including metabolic panel Patient was in agreement with the plan all questions were answered, they were instructed to return to the emergency department or call for worsening symptoms. This note was dictated using [employer] voice recognition software please call with any questions.
--- NOTE | 2017-02-27 08:48 | CR ---
Chest 2V HISTORY: sob COMPARISON: 12/02/2016 FINDINGS: There is mild interstitial prominence greatest at the lung bases. Moderate cardiomegaly is similar t o the prior exam. There is vascular redistribution. Probable small bilateral pleural effusions are p resent. Old median sternotomy changes are noted. Left-sided pacemaker and lead wire are stable. IMPRESSION: Possible acute CHF similar to exam of 12/02/2016. Recommend clinical correlation and follow-up.
== END 2017-02-26 10:06 | disposition home or self-care (01) ==
LOC: JP.ED 07:08
DX: I11.0 Hypertensive heart disease with heart failure (principal); I50.9 Heart failure, unspecified; I25.810 Atherosclerosis of coronary artery bypass graft(s) without angina pectoris; E11.9 Type 2 diabetes mellitus without complications; Z95.0 Presence of cardiac pacemaker; Z90.49 Acquired absence of other specified parts of digestive tract; Z98.890 Other specified postprocedural states; Z88.8 Allergy status to other drugs, medicaments and biological substances; Z88.1 Allergy status to other antibiotic agents; Z91.040 Latex allergy status; Z91.048 Other nonmedicinal substance allergy status; Z79.01 Long term (current) use of anticoagulants; Z79.84 Long term (current) use of oral hypoglycemic drugs; Z79.82 Long term (current) use of aspirin; Z79.899 Other long term (current) drug therapy; Z96.659 Presence of unspecified artificial knee joint; Z87.891 Personal history of nicotine dependence
CPT/HCPCS: 36415; 71020; 71020-26; 80053; 81001; 83880; 84484; 85025; 85610; 93005; 93010; 99284; 99284-25

== ENCOUNTER 2017-04-05 21:30 | Emergency (ER) | payer MEDICARE, BC ==
[2017-04-05] MEDS ORDERED: Furosemide 40 MG/4 ML VIAL IVPUSH ONE ×2 (21:49→22:35)
[2017-04-05] MEDS ORDERED: Sodium Chloride 0.9% 1,000 ML IV SCH (22:00)
[2017-04-05] MEDS ORDERED: Furosemide 40 MG/4 ML VIAL ONE (22:53)
[2017-04-05] MEDS ORDERED: Furosemide 100 MG/10 ML SDV IVPUSH ONE (23:06)
[2017-04-06 01:36] VITALS: BP 116/69
--- NOTE | 2017-04-06 01:45 | EDM.PDOC ---
ED HPI GENERAL MEDICAL PROBLEM - General Chief Complaint: Cardiovascular Problem Stated Complaint: SOB Time Seen by Provider: 04/05/17 21:42 Source of Information: Reports: Patient, Family History Limitations: Reports: No Limitations - History of Present Illness INITIAL COMMENTS - FREE TEXT/NARRATIVE: History of present illness: [77-year-old male is presenting with shortness of breath is come on over the last 24 hours. In reviewing his past peripheral history he does have a history of congestive heart failure. He had been on Lasix but apparently about a month ago he was switched to Bumex. He does have an appointment to see one of the surgeons tomorrow to have a wrap removed from his left lower extremity. I presume he has a venous stasis ulcer there that's being treated. He is on Coumadin that has no history of clots or DVTs. Patient denies any chest pain with this. He does have a cough which came on with the shortness of breath in in visiting with the son he states that when he gets fluid on his lungs he develops cough. He's had no fevers or chills. 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 He has been driving today in visiting a friend going out to eat etc. so he's not been recumbent.] Review of systems: As per history of present illness and below otherwise all systems reviewed and negative. Past medical history: As per history of present illness and as reviewed below otherwise noncontributory. Surgical history: As per history of present illness and as reviewed below otherwise noncontributory. Social history: No reported history of drug or alcohol abuse. Family history: As per history of present illness and as reviewed below otherwise noncontributory. Physical exam: Gen. He initially appeared a little bit pasty and short of breath Treatment with Lasix and observation his color improved and he appeared more comfortable. HEENT: Atraumatic, normocephalic, pupils reactive, negative for conjunctival pallor or scleral icterus, mucous membranes moist, throat clear, neck supple, nontender, trachea midline. Lungs: Lungs initially were quiet at the bases with some crackles assisted up after treatment he did have breath sounds to the bases with some crackles. Heart: He is in a paced rhythm without a murmur Abdomen: Soft, nondistended, nontender. Negative for masses or hepatosplenomegaly. Negative for costovertebral tenderness. Pelvis: Stable nontender. Genitourinary: Deferred. Rectal: Deferred. Extremities: He does have a wrap on his left lower extremity he does have bilateral pedal edema 1-2+. Neuro: Awake, alert, oriented. Cranial nerves II through XII unremarkable. Cerebellum unremarkable. Motor and sensory unremarkable throughout. Exam nonfocal. Diagnostics: [CBC and complete metabolic panel were done his INR is 2.05 troponin is negative his BNP is elevated I did do a d-dimer on him which is elevated but I I think it very unlikely he has a pulmonary embolus given his activity level and he is on Coumadin and aspirin and no history of same. He was satting at 95% on room air at time of discharge.] Therapeutics: [He was given IV Lasix here in the emergency room using an aggressive approach as the hospital was full at times when he was wanted to try to see if I could treat him here in the emergency room and discharge him. He had about 2 L of urine out and is feeling better.] Impression: [Congestive heart failure] Plan: [I spoke with the son and I'm advising that he follow-up with his primary care doctor here in [facility]. It could be that an adjustment in his medications would be warranted. I told the patient that it's likely he'll be up tonight urinating more than usual so he is aware of this.] Definitive disposition and diagnosis as appropriate pending reevaluation and review of above. - Related Data Allergies Allergy/AdvReac Type Severity Reaction Status Date / Time cefaclor [From Ceclor] Allergy Rash Verified 02/26/17 07:33 cefuroxime axetil Allergy Cannot Verified 02/26/17 07:33 [From Ceftin] Remember contact metal agent Allergy Cannot Verified 02/26/17 07:33 Remember diltiazem HCl [From Cardizem] Allergy Cannot Verified 02/26/17 07:33 Remember latex Allergy Rash Verified 02/26/17 07:33 metronidazole [From Flagyl] Allergy Rash Verified 02/26/17 07:33 Metronidazole HCl Allergy Rash Verified 02/26/17 07:33 [From Flagyl] naproxen [From Naprosyn] AdvReac Liver Verified 02/26/17 07:33 Problems ranitidine AdvReac Stomach Verified 02/26/17 07:33 Upset Home Meds: Home Meds Furosemide [Lasix] 80 mg PO DAILY 07/14/13 [History] Acetaminophen [Acetaminophen Extra Strength] 1,000 mg PO Q6HR PRN 02/26/14 [ History] Calcium Carbonate/Vitamin D3 [Calcium 600 + Vit D Tablet] 1 tab PO DAILY [History] Fish Oil/[place]-3 Fatty Acids [Fish Oil 1,000 MG] 1 tab PO DAILY 02/26/14 [ History] Glucosamine/D3/Boswellia Ivet [Osteo Bi-Flex Caplet] 1 tab PO DAILY 02/09/15 [ History] Meclizine HCl 25 mg PO TID PRN 02/09/15 [History] Warfarin [Coumadin] 7.5 mg PO DAILY 11/17/15 [History] Allopurinol [Zyloprim] 100 mg PO DAILY tablet 01/31/17 [Rx] Aspirin 81 mg PO DAILY tab.chew 01/31/17 [Rx] Docusate Sodium [Colace 50 MG/5 ML Liquid] 50 mg PO DAILY cup 01/31/17 [Rx] Metoprolol Succinate [Toprol XL] 50 mg PO DAILY tab.er 01/31/17 [Rx] Nitroglycerin [IJP: Nitroglycerin] 0.4 mg SL ASDIRECTED PRN #0 tablet, sublingual 01/31/17 [Rx] Pantoprazole [ProTONIX] 40 mg PO ACBREAKFAST tab.cr 01/31/17 [Rx] atorvaSTATin [Lipitor] 40 mg PO DAILY tablet 01/31/17 [Rx] glipiZIDE [Glucotrol XL] 20 mg PO BIDM 01/31/17 [Rx] metFORMIN [Glucophage] 1,000 mg PO DAILY@0800 tablet 01/31/17 [Rx] Past Medical History HEENT History: Reports: Cataract, Glaucoma, Hard of Hearing, Impaired Vision, Macular Degeneration, Otitis Media, Sinusitis Cardiovascular History: Reports: Afib, Bypass, CAD, High Cholesterol, Hypertension, NE, Pacemaker Respiratory History: Reports: SOB Gastrointestinal History: Reports: Chronic Constipation, Chronic Diarrhea, Other (See Below) Other Gastrointestinal History: diverticulitis, bloody stools Genitourinary History: Reports: Prostate Disorder Musculoskeletal History: Reports: Arthritis, Osteoarthritis Neurological History: Reports: CVA, TIA, Vertigo Endocrine/Metabolic History: Reports: Diabetes, Type II Hematologic History: Reports: Anticoagulation Therapy, Blood Transfusion(s) Immunologic History: Reports: None Oncologic (Cancer) History: Reports: Prostate - Infectious Disease History Infectious Disease History: Reports: Measles Other Infectious Disease History: unknown to patient - Past Surgical History HEENT Surgical History: Reports: Myringotomy w Tube(s) Cardiovascular Surgical History: Reports: Coronary Artery Bypass, Pacer GI Surgical History: Reports: Appendectomy, Cholecystectomy, Colonoscopy, Hernia , Abdominal, Hernia, Inguinal, Hernia Repair/Other Male Surgical History: Reports: TURP-Transurethral Resection of Prostate Musculoskeletal Surgical History: Reports: Knee Replacement Oncologic Surgical History: Reports: None Dermatological Surgical History: Reports: Skin Biopsy Social & Family History - Family History HEENT: Reports: Impaired Vision Cardiac: Reports: Afib, CAD, NE Respiratory: Reports: COPD GI: Reports: Cirrhosis, Pancreatitis : Reports: None OBGYN: Reports: None Musculoskeletal: Reports: Arthritis Neurological: Reports: CVA Psychiatric: Reports: None Endocrine/Metabolic: Reports: Diabetes, type II Hematologic: Reports: None Immunologic: Reports: None Dermatologic: Reports: None Oncologic: Reports: None - Tobacco Use Smoking Status *Q: Former Smoker Years of Tobacco use: 42 Packs/Tins Daily: 1 Used Tobacco, but Quit: Yes Month Tobacco Last Used: UNKNOWN Second Hand Smoke Exposure: Yes - Caffeine Use Caffeine Use: Reports: Coffee - Alcohol Use Days Per Week of Alcohol Use: 1 Number of Drinks Per Day: 0 Total Drinks Per Week: 0 - Recreational Drug Use Recreational Drug Use: No ED ROS GENERAL - Review of Systems Review Of Systems: ROS reveals no pertinent complaints other than HPI. ED EXAM, GENERAL - Physical Exam Exam: See Below Course - Vital Signs Last Recorded V/S: Last Vital Signs Temp 36.8 C 04/06/17 01:34 Pulse 70 04/06/17 01:27 Resp 15 04/06/17 01:34 BP 116/69 04/06/17 01:34 Pulse Ox 95 04/06/17 01:34 - Orders/Labs/Meds Orders: Active Orders 24 hr Category Date Time Status EKG Documentation Completion [RC] ASDIRECTED Care 04/05/17 21:47 Active Chest 1V Frontal [CR] Stat Exams 04/05/17 21:46 Taken Sodium Chloride 0.9% [Normal Saline] 1,000 ml Med 04/05/17 22:00 Active IV ASDIRECTED EKG 12 Lead [EK] Stat Ther 04/05/17 21:46 Ordered Medication Orders Sodium Chloride (Normal Saline) 1,000 mls @ 50 mls/hr IV ASDIRECTED EDY Last Admin: 04/05/17 21:59 Dose: 50 mls/hr Labs: Laboratory Tests 04/05/17 04/05/17 04/05/17 Range/Units 10:48 20:46 20:46 WBC (4.5-11.0) K/uL RBC (4.30-5.90) M/uL Hgb (12.0-15.0) g/dL Hct (40.0-54.0) % MCV (80-98) fL MCH (27-31) pg MCHC (32-36) % Plt Count (150-400) K/uL Neut % (Auto) (36-66) % Lymph % (Auto) (24-44) % [place] % (Auto) (2-6) % Eos % (Auto) (2-4) % Baso % (Auto) (0-1) % PT 22.6 H (9.5-12.0) sec INR 2.05 H D (0.80-1.20) D-Dimer, Quantitative 2270 H (0.0-400.0) ng/mL ABG Hemoglobin (13.5-18.0) g/dL ABG Oxyhemoglobin % ABG Carboxyhemoglobin (0.0-1.6) % ABG Methemoglobin % VBG pH (7.350-7.450) VBG pCO2 mm/Hg VBG pO2 mm/Hg VBG HCO3 mmol/L VBG Total CO2 mmol/L VBG O2 Saturation VBG O2 Content %vol VBG Base Excess mm/L O2 Delivery Device Sodium (140-148) mmol/L Potassium (3.6-5.2) mmol/L Chloride (100-108) mmol/L Carbon Dioxide (21-32) mmol/L Anion Gap (5.0-14.0) mmol/L BUN (7-18) mg/dL Creatinine (0.8-1.3) mg/dL Est Cr Clr Drug Dosing mL/min Estimated GFR (MDRD) (>60) Glucose (74-106) mg/dL Lactic Acid (0.4-2.0) mmol/L Calcium (8.5-10.1) mg/dL Total Bilirubin (0.2-1.0) mg/dL AST (15-37) U/L ALT (12-78) U/L Alkaline Phosphatase (46-116) U/L Troponin I (0.000-0.056) ng/mL Irk-D-Gdrnzwnwhsv Pept (5-450) pg/mL Total Protein (6.4-8.2) g/dL Albumin (3.4-5.0) g/dL Globulin (2.3-3.5) g/dL Albumin/Globulin Ratio (1.2-2.2) Urine Color Yellow Urine Appearance Clear Urine pH 7.0 (4.5-8.0) Ur Specific [place] 1.005 L (1.008-1.030) Urine Protein Negative (NEGATIVE) mg/dL Urine Glucose (UA) Normal (NEGATIVE) mg/dL Urine Ketones Negative (NEGATIVE) mg/dL Urine Occult Blood Negative (NEGATIVE) Urine Nitrite Negative (NEGAITVE) Urine Bilirubin Negative (NEGATIVE) Urine Urobilinogen Normal (NORMAL) mg/dL Ur Leukocyte Esterase Negative (NEGATIVE) Urine RBC 0-5 (0-5) Urine WBC 0-5 (0-5) Ur Epithelial Cells Not seen Amorphous Sediment Not seen Urine Bacteria Not seen Urine Mucus Not seen 04/05/17 04/05/17 04/05/17 Range/Units 20:46 21:46 21:46 WBC 5.2 (4.5-11.0) K/uL RBC 3.70 L (4.30-5.90) M/uL Hgb 11.8 L (12.0-15.0) g/dL Hct 35.2 L (40.0-54.0) % MCV 95 (80-98) fL MCH 32 H (27-31) pg MCHC 34 (32-36) % Plt Count 155 (150-400) K/uL Neut % (Auto) 70 H (36-66) % Lymph % (Auto) 17 L (24-44) % Parker % (Auto) 10 H (2-6) % Eos % (Auto) 3 (2-4) % Baso % (Auto) 0 (0-1) % PT (9.5-12.0) sec INR (0.80-1.20) D-Dimer, Quantitative (0.0-400.0) ng/mL ABG Hemoglobin 11.8 L (13.5-18.0) g/dL ABG Oxyhemoglobin 85.5 % ABG Carboxyhemoglobin 2.8 H (0.0-1.6) % ABG Methemoglobin 0.4 % VBG pH 7.478 H (7.350-7.450) VBG pCO2 35.7 mm/Hg VBG pO2 53.7 mm/Hg VBG HCO3 26.2 mmol/L VBG Total CO2 23.5 mmol/L VBG O2 Saturation 88.3 VBG O2 Content 14.1 %vol VBG Base Excess 3.1 mm/L O2 Delivery Device Room air Sodium 136 L (140-148) mmol/L Potassium 4.2 (3.6-5.2) mmol/L Chloride 103 (100-108) mmol/L Carbon Dioxide 27 (21-32) mmol/L Anion Gap 10.2 (5.0-14.0) mmol/L BUN 25 H D (7-18) mg/dL Creatinine 1.0 (0.8-1.3) mg/dL Est Cr Clr Drug Dosing 74.21 mL/min Estimated GFR (MDRD) > 60 (>60) Glucose 170 H (74-106) mg/dL Lactic Acid (0.4-2.0) mmol/L Calcium 9.6 (8.5-10.1) mg/dL Total Bilirubin 1.4 H (0.2-1.0) mg/dL AST 52 H (15-37) U/L ALT 23 (12-78) U/L Alkaline Phosphatase 218 H (46-116) U/L Troponin I 0.027 (0.000-0.056) ng/mL Gpo-P-Xayangqrnrn Pept (5-450) pg/mL Total Protein 8.1 (6.4-8.2) g/dL Albumin 2.7 L (3.4-5.0) g/dL Globulin 5.4 H (2.3-3.5) g/dL Albumin/Globulin Ratio 0.5 L (1.2-2.2) Urine Color Urine Appearance Urine pH (4.5-8.0) Ur Specific [place] (1.008-1.030) Urine Protein (NEGATIVE) mg/dL Urine Glucose (UA) (NEGATIVE) mg/dL Urine Ketones (NEGATIVE) mg/dL Urine Occult Blood (NEGATIVE) Urine Nitrite (NEGAITVE) Urine Bilirubin (NEGATIVE) Urine Urobilinogen (NORMAL) mg/dL Ur Leukocyte Esterase (NEGATIVE) Urine RBC (0-5) Urine WBC (0-5) Ur Epithelial Cells Amorphous Sediment Urine Bacteria Urine Mucus 04/05/17 04/05/17 Range/Units 21:46 21:46 WBC (4.5-11.0) K/uL RBC (4.30-5.90) M/uL Hgb (12.0-15.0) g/dL Hct (40.0-54.0) % MCV (80-98) fL MCH (27-31) pg MCHC (32-36) % Plt Count (150-400) K/uL Neut % (Auto) (36-66) % Lymph % (Auto) (24-44) % Parker % (Auto) (2-6) % Eos % (Auto) (2-4) % Baso % (Auto) (0-1) % PT (9.5-12.0) sec INR (0.80-1.20) D-Dimer, Quantitative (0.0-400.0) ng/mL ABG Hemoglobin (13.5-18.0) g/dL ABG Oxyhemoglobin % ABG Carboxyhemoglobin (0.0-1.6) % ABG Methemoglobin % VBG pH (7.350-7.450) VBG pCO2 mm/Hg VBG pO2 mm/Hg VBG HCO3 mmol/L VBG Total CO2 mmol/L VBG O2 Saturation VBG O2 Content %vol VBG Base Excess mm/L O2 Delivery Device Sodium (140-148) mmol/L Potassium (3.6-5.2) mmol/L Chloride (100-108) mmol/L Carbon Dioxide (21-32) mmol/L Anion Gap (5.0-14.0) mmol/L BUN (7-18) mg/dL Creatinine (0.8-1.3) mg/dL Est Cr Clr Drug Dosing mL/min Estimated GFR (MDRD) (>60) Glucose (74-106) mg/dL Lactic Acid 2.1 H (0.4-2.0) mmol/L Calcium (8.5-10.1) mg/dL Total Bilirubin (0.2-1.0) mg/dL AST (15-37) U/L ALT (12-78) U/L Alkaline Phosphatase (46-116) U/L Troponin I (0.000-0.056) ng/mL Gel-R-Mslzcyjggnh Pept 1700 H (5-450) pg/mL Total Protein (6.4-8.2) g/dL Albumin (3.4-5.0) g/dL Globulin (2.3-3.5) g/dL Albumin/Globulin Ratio (1.2-2.2) Urine Color Urine Appearance Urine pH (4.5-8.0) Ur Specific [place] (1.008-1.030) Urine Protein (NEGATIVE) mg/dL Urine Glucose (UA) (NEGATIVE) mg/dL Urine Ketones (NEGATIVE) mg/dL Urine Occult Blood (NEGATIVE) Urine Nitrite (NEGAITVE) Urine Bilirubin (NEGATIVE) Urine Urobilinogen (NORMAL) mg/dL Ur Leukocyte Esterase (NEGATIVE) Urine RBC (0-5) Urine WBC (0-5) Ur Epithelial Cells Amorphous Sediment Urine Bacteria Urine Mucus Meds: Medications Generic Name Dose Route Start Last Admin Trade Name Freq PRN Reason Stop Dose Admin Sodium Chloride 1,000 mls @ 50 mls/hr 04/05/17 22:00 04/05/17 21:59 Normal Saline IV 50 mls/hr ASDIRECTED EDY Administration Discontinued Medications Generic Name Dose Route Start Last Admin Trade Name Freq PRN Reason Stop Dose Admin Furosemide 40 mg 04/05/17 21:49 04/05/17 21:59 Lasix IVPUSH 04/05/17 21:50 40 mg ONETIME ONE Administration Furosemide 80 mg 04/05/17 22:35 04/05/17 22:54 Lasix IVPUSH 04/05/17 22:36 80 mg ONETIME ONE Administration Furosemide Confirm 04/05/17 22:53 04/05/17 23:15 Lasix Administered 04/05/17 22:54 Not Given Dose 40 mg .ROUTE .STK-MED ONE Furosemide 100 mg 04/05/17 23:06 04/05/17 23:13 Lasix IVPUSH 04/05/17 23:07 100 mg NOW ONE Administration Departure - Departure Time of Disposition: 01:45 Disposition: Home, Self-Care 01 Condition: Good Clinical Impression: Congestive heart failure Qualifiers: Congestive heart failure type: unspecified congestive heart failure type Congestive heart failure chronicity: acute on chronic Qualified Code(s): I50.9 - Heart failure, unspecified Forms: ED Department Discharge Additional Instructions: Please follow-up with your doctor as an adjustment in your water pill may be needed. If your shortness of breath returns and is severe he will need to return to the emergency room. It is likely that he will continue to urinate more tonight than usual which would be good this were trying to get the fluid off your lungs. - My Orders Last 24 Hours: My Active Orders 04/05/17 21:46 Chest 1V Frontal [CR] Stat EKG 12 Lead [EK] Stat 04/05/17 21:47 EKG Documentation Completion [RC] ASDIRECTED 04/05/17 22:00 Sodium Chloride 0.9% [Normal Saline] 1,000 ml IV ASDIRECTED - Assessment/Plan Last 24 Hours: My Active Orders 04/05/17 21:46 Chest 1V Frontal [CR] Stat EKG 12 Lead [EK] Stat 04/05/17 21:47 EKG Documentation Completion [RC] ASDIRECTED 04/05/17 22:00 Sodium Chloride 0.9% [Normal Saline] 1,000 ml IV ASDIRECTED
--- NOTE | 2017-04-06 09:55 | CR ---
Portable chest Comparison: December 2012. The cardiac pacemaker on the left is stable with a single intact lead. There is cardiac enlargement with vascular engorgement. Small bilateral pleural effusions are demonstrated, right greater than le ft. There are no infiltrates. Impression: 1. CHF.
== END 2017-04-06 01:55 | disposition home or self-care (01) ==
LOC: JP.ED 21:30
DX: I11.0 Hypertensive heart disease with heart failure (principal); I50.9 Heart failure, unspecified; E78.00 Pure hypercholesterolemia, unspecified; I25.10 Atherosclerotic heart disease of native coronary artery without angina pectoris; I25.2 Old myocardial infarction; E11.9 Type 2 diabetes mellitus without complications; I48.91 Unspecified atrial fibrillation; M19.90 Unspecified osteoarthritis, unspecified site; Z87.891 Personal history of nicotine dependence; Z90.49 Acquired absence of other specified parts of digestive tract; Z98.890 Other specified postprocedural states; Z96.22 Myringotomy tube(s) status; Z95.1 Presence of aortocoronary bypass graft; Z96.659 Presence of unspecified artificial knee joint; Z86.73 Personal history of transient ischemic attack (TIA), and cerebral infarction without residual deficits; Z79.01 Long term (current) use of anticoagulants; Z95.0 Presence of cardiac pacemaker; Z91.040 Latex allergy status; Z79.899 Other long term (current) drug therapy; Z79.84 Long term (current) use of oral hypoglycemic drugs; Z88.1 Allergy status to other antibiotic agents; Z88.8 Allergy status to other drugs, medicaments and biological substances; Z91.09 Other allergy status, other than to drugs and biological substances
CPT/HCPCS: 36415; 71010; 80053; 81001; 82803; 83605; 83880; 84484; 85025; 85379; 85610; 93005; 96361; 96374; 96376; 99285; J1940; J7040; 93010; 99284

== ENCOUNTER 2017-04-06 15:10 | Inpatient (IN) | payer MEDICARE, BC ==
--- NOTE | 2017-04-06 16:11 | EDM.PDOC ---
[id number]: SOB; PAIN IN CHEST Time Seen by Provider: 04/06/17 15:45 Source of Information: Reports: Patient History Limitations: Reports: No Limitations - History of Present Illness INITIAL COMMENTS - FREE TEXT/NARRATIVE: 77-year-old male with known congestive heart failure was in the ER yesterday and diuresed with IV diuretics. He felt somewhat better this morning but by noon he ate a small meal and felt awful, was having marked difficulty with ambulation of even small distances. He also had several episodes of brief chest pain and one in his left arm. No nausea or vomiting. He is also having discomfort on the buttocks area from some superficial ulcerations developing. No fever or chills. Onset: Unknown/Unsure Severity: Moderate Associated Symptoms: Reports: Chest Pain, Shortness of Breath. Denies: Fever/ Chills, Headaches, Nausea/Vomiting Lower Abdomen Pain Score (Numeric/FACES): 2 - Related Data Allergies Allergy/AdvReac Type Severity Reaction Status Date / Time cefaclor [From Ceclor] Allergy Rash Verified 04/06/17 15:30 cefuroxime axetil Allergy Cannot Verified 04/06/17 15:30 [From Ceftin] Remember contact metal agent Allergy Cannot Verified 04/06/17 15:30 Remember diltiazem HCl [From Cardizem] Allergy Cannot Verified 04/06/17 15:30 Remember latex Allergy Rash Verified 04/06/17 15:30 metronidazole [From Flagyl] Allergy Rash Verified 04/06/17 15:30 Metronidazole HCl Allergy Rash Verified 04/06/17 15:30 [From Flagyl] naproxen [From Naprosyn] AdvReac Liver Verified 04/06/17 15:30 Problems ranitidine AdvReac Stomach Verified 04/06/17 15:30 Upset Home Meds: Home Meds Furosemide [Lasix] 80 mg PO DAILY 07/14/13 [History] Acetaminophen [Acetaminophen Extra Strength] 1,000 mg PO Q6HR PRN 02/26/14 [ History] Calcium Carbonate/Vitamin D3 [Calcium 600 + Vit D Tablet] 1 tab PO DAILY [History] Fish Oil/[place]-3 Fatty Acids [Fish Oil 1,000 MG] 1 tab PO DAILY 02/26/14 [ History] Glucosamine/D3/Boswellia Ivet [Osteo Bi-Flex Caplet] 1 tab PO DAILY 02/09/15 [ History] Meclizine HCl 25 mg PO TID PRN 02/09/15 [History] Warfarin [Coumadin] 7.5 mg PO ASDIRECTED 11/17/15 [History] Allopurinol [Zyloprim] 100 mg PO DAILY tablet 01/31/17 [Rx] Aspirin 81 mg PO DAILY tab.chew 01/31/17 [Rx] Docusate Sodium [Colace 50 MG/5 ML Liquid] 50 mg PO DAILY cup 01/31/17 [Rx] Metoprolol Succinate [Toprol XL] 50 mg PO DAILY tab.er 01/31/17 [Rx] Nitroglycerin [IJP: Nitroglycerin] 0.4 mg SL ASDIRECTED PRN #0 tablet, sublingual 01/31/17 [Rx] atorvaSTATin [Lipitor] 40 mg PO DAILY tablet 01/31/17 [Rx] glipiZIDE [Glucotrol XL] 20 mg PO BIDM 01/31/17 [Rx] Bumetanide [Bumex] 2 mg PO BID 04/06/17 [History] Sennosides/Docusate Sodium [Senna-Docusate Sodium] 1 each PO DAILY 04/06/17 [ History] Warfarin [Coumadin] 5 mg PO ASDIRECTED 04/06/17 [History] metFORMIN [Glucophage] 1,000 mg PO BID 04/06/17 [History] Past Medical History HEENT History: Reports: Cataract, Glaucoma, Hard of Hearing, Impaired Vision, Macular Degeneration, Otitis Media, Sinusitis Cardiovascular History: Reports: Afib, Bypass, CAD, High Cholesterol, Hypertension, [place], Pacemaker Respiratory History: Reports: SOB Gastrointestinal History: Reports: Chronic Constipation, Chronic Diarrhea, Other (See Below) Other Gastrointestinal History: diverticulitis, bloody stools Genitourinary History: Reports: Prostate Disorder Musculoskeletal History: Reports: Arthritis, Osteoarthritis Neurological History: Reports: CVA, TIA, Vertigo Endocrine/Metabolic History: Reports: Diabetes, Type II Hematologic History: Reports: Anticoagulation Therapy, Blood Transfusion(s) Immunologic History: Reports: None Oncologic (Cancer) History: Reports: Prostate - Infectious Disease History Infectious Disease History: Reports: Chicken Pox, Measles Other Infectious Disease History: unknown to patient - Past Surgical History HEENT Surgical History: Reports: Myringotomy w Tube(s) Cardiovascular Surgical History: Reports: Coronary Artery Bypass, Pacer GI Surgical History: Reports: Appendectomy, Cholecystectomy, Colonoscopy, Hernia , Abdominal, Hernia, Inguinal, Hernia Repair/Other Male Surgical History: Reports: TURP-Transurethral Resection of Prostate Musculoskeletal Surgical History: Reports: Knee Replacement Oncologic Surgical History: Reports: None Dermatological Surgical History: Reports: Skin Biopsy Social & Family History - Family History HEENT: Reports: Impaired Vision Cardiac: Reports: Afib, CAD, [place] Respiratory: Reports: COPD GI: Reports: Cirrhosis, Pancreatitis : Reports: None OBGYN: Reports: None Musculoskeletal: Reports: Arthritis Neurological: Reports: CVA Psychiatric: Reports: None Endocrine/Metabolic: Reports: Diabetes, type II Hematologic: Reports: None Immunologic: Reports: None Dermatologic: Reports: None Oncologic: Reports: None - Tobacco Use Smoking Status *Q: Former Smoker Years of Tobacco use: 42 Packs/Tins Daily: 1 Used Tobacco, but Quit: Yes Month Tobacco Last Used: UNKNOWN Second Hand Smoke Exposure: Yes - Caffeine Use Caffeine Use: Reports: Coffee - Alcohol Use Days Per Week of Alcohol Use: 0 Number of Drinks Per Day: 0 Total Drinks Per Week: 0 - Recreational Drug Use Recreational Drug Use: No ED ROS GENERAL - Review of Systems Review Of Systems: See Below Constitutional: Reports: Malaise. Denies: Fever, Chills HEENT: Reports: No Symptoms Respiratory: Reports: Shortness of Breath, Cough. Denies: Sputum Cardiovascular: Reports: Chest Pain. Denies: Palpitations Endocrine: Reports: Fatigue GI/Abdominal: Denies: Abdominal Pain Skin: Reports: Bruising, Other (Heals very slowly, has some ulcerations developing on the sacrum) Neurological: Denies: Headache Psychiatric: Reports: No Symptoms ED EXAM, GENERAL - Physical Exam Exam: See Below Exam Limited By: No Limitations General Appearance: Alert, Anxious, Mild Distress (Looks uncomfortable) Respiratory/Chest: No Respiratory Distress, Wheezing (Decreased breath sounds at the bases with some scattered light expiratory wheezes heard) Cardiovascular: Regular Rate, Rhythm GI/Abdominal: Soft, Non-Tender Extremities: Pedal Edema (A small amount of symmetric edema is present of the lower extremities, his left leg is wrapped) Neurological: Alert, Oriented Psychiatric: Normal Affect, Normal Mood Skin Exam: Warm Course - Vital Signs Last Recorded V/S: Last Vital Signs Temp 98.4 F 07/29/17 03:00 Pulse 65 04/08/17 03:00 Resp 20 04/08/17 03:00 BP 115/68 04/08/17 04:34 Pulse Ox 95 04/08/17 03:00 - Orders/Labs/Meds Orders: Medication Orders Acetaminophen (Tylenol) 650 mg PO Q4H PRN PRN Reason: Pain (Mild 1-3)/fever Albuterol (Proventil Neb Soln) 2.5 mg NEB Q4H PRN PRN Reason: Shortness Of Breath/wheezing Last Admin: 04/06/17 22:28 Dose: 2.5 mg Allopurinol (Zyloprim) 100 mg PO DAILY [facility] Last Admin: 04/07/17 08:28 Dose: 100 mg Aspirin (Aspirin) 81 mg PO DAILY [facility] Last Admin: 04/07/17 08:28 Dose: 81 mg Atorvastatin Calcium (Lipitor) 40 mg PO DAILY [facility] Last Admin: 04/07/17 08:28 Dose: 40 mg Bumetanide (Bumex) 4 mg IVPUSH Q12H [facility] Last Admin: 04/08/17 04:34 Dose: 4 mg Admin: 04/07/17 17:15 Dose: 4 mg Dextrose (Glutose 15) 15 gm PO ONETIME PRN PRN Reason: Hypoglycemia Dextrose/Water (Dextrose 50% In Water) 50 ml IV ONETIME PRN PRN Reason: Hypoglycemia Insulin Aspart (Novolog) 0 unit SUBCUT ASDIRECTED [facility] PRN Reason: Protocol Last Admin: 04/07/17 22:03 Dose: 2 unit Admin: 04/07/17 07:35 Dose: 1 unit Lisinopril (Prinivil) 5 mg PO DAILY [facility] Magnesium Hydroxide (Milk Of Magnesia) 30 ml PO Q12H PRN PRN Reason: Constipation Last Admin: 04/07/17 14:21 Dose: 30 ml Metformin HCl (Glucophage) 1,000 mg PO BIDMEALS [facility] Last Admin: 04/08/17 07:12 Dose: 1,000 mg Admin: 04/07/17 18:19 Dose: 1,000 mg Admin: 04/07/17 08:26 Dose: 1,000 mg Metoprolol Succinate (Toprol Xl) 50 mg PO DAILY [facility] Last Admin: 04/07/17 08:27 Dose: 50 mg Nitroglycerin (Nitrostat) 0.4 mg SL ASDIRECTED PRN PRN Reason: Chest Pain Ondansetron HCl (Zofran) 4 mg IV Q4H PRN PRN Reason: Nausea/Vomiting Oxycodone HCl (Oxycodone) 5 mg PO Q4H PRN PRN Reason: Pain (moderate 4-6) Polyethylene Glycol (Miralax) 17 gm PO DAILY PRN PRN Reason: Constipation Senna/Docusate Sodium (Senna Plus) 1 tab PO DAILY [facility] Last Admin: 04/07/17 08:28 Dose: 1 tab Sodium Chloride (Saline Flush) 10 ml FLUSH ASDIRECTED PRN PRN Reason: Keep Vein Open Warfarin Sodium (Coumadin) 5 mg PO MoFr@1300 [facility] Last Admin: 04/07/17 13:23 Dose: 5 mg Warfarin Sodium (Coumadin) 7.5 mg PO SuTuWeThSa@1300 [facility] Labs: Laboratory Tests 04/06/17 Range/Units 16:22 Troponin I 0.033 (0.000-0.056) ng/mL Meds: Medications Generic Name Dose Route Start Last Admin Trade Name Freq PRN Reason Stop Dose Admin Acetaminophen 650 mg 04/06/17 18:57 Tylenol PO Q4H PRN Pain (Mild 1-3)/fever Albuterol 2.5 mg 04/06/17 18:57 04/06/17 22:28 Proventil Neb Soln NEB 2.5 mg Q4H PRN Administration Shortness Of Breath/wheezing Allopurinol 100 mg 04/07/17 09:00 04/07/17 08:28 Zyloprim PO 100 mg DAILY [facility] Administration Aspirin 81 mg 04/07/17 09:00 04/07/17 08:28 Aspirin PO 81 mg DAILY [facility] Administration Atorvastatin Calcium 40 mg 04/07/17 09:00 04/07/17 08:28 Lipitor PO 40 mg DAILY [facility] Administration Bumetanide 4 mg 04/07/17 16:00 04/08/17 04:34 Bumex IVPUSH 4 mg Q12H [facility] Administration Dextrose 15 gm 04/06/17 18:57 Glutose 15 PO ONETIME PRN Hypoglycemia Dextrose/Water 50 ml 04/06/17 18:57 Dextrose 50% In Water IV ONETIME PRN Hypoglycemia Insulin Aspart 0 unit 04/06/17 18:57 04/07/17 22:03 Novolog SUBCUT 2 unit ASDIRECTED EDY Administration Protocol Lisinopril 5 mg 04/08/17 09:00 Prinivil PO DAILY [facility] Magnesium Hydroxide 30 ml 04/06/17 18:57 04/07/17 14:21 Milk Of Magnesia PO 30 ml Q12H PRN Administration Constipation Metformin HCl 1,000 mg 04/07/17 08:00 04/08/17 07:12 Glucophage PO 1,000 mg BIDMEALS [facility] Administration Metoprolol Succinate 50 mg 04/07/17 09:00 04/07/17 08:27 Toprol Xl PO 50 mg DAILY [facility]Y Administration Nitroglycerin 0.4 mg 04/06/17 18:57 Nitrostat SL ASDIRECTED PRN Chest Pain Ondansetron HCl 4 mg 04/06/17 18:57 Zofran IV Q4H PRN Nausea/Vomiting Oxycodone HCl 5 mg 04/06/17 18:57 Oxycodone PO Q4H PRN Pain (moderate 4-6) Polyethylene Glycol 17 gm 04/06/17 18:57 Miralax PO DAILY PRN Constipation Senna/Docusate Sodium 1 tab 04/07/17 09:00 04/07/17 08:28 Senna Plus PO 1 tab DAILY [facility] Administration Sodium Chloride 10 ml 04/06/17 18:57 Saline Flush FLUSH ASDIRECTED PRN Keep Vein Open Warfarin Sodium 5 mg 04/07/17 13:00 04/07/17 13:23 Coumadin PO 5 mg MoFr@1300 [facility] Administration Warfarin Sodium 7.5 mg 04/08/17 13:00 Coumadin PO SuTuWeThSa@1300 [facility] Discontinued Medications Generic Name Dose Route Start Last Admin Trade Name Freq PRN Reason Stop Dose Admin Bumetanide 2 mg 04/06/17 17:30 04/06/17 17:39 Bumex IVPUSH 2 mg Q24H EDY Administration Bumetanide 2 mg 04/07/17 07:00 04/07/17 08:24 Bumex IVPUSH 2 mg Q12H EDY Administration Sodium Chloride 80 mls @ 3 mls/sec 04/06/17 19:00 Normal Saline IV ASDIRECTED EDY Iopamidol 100 ml 04/06/17 19:00 [id number] (76%) IV . DIRECTED EDY Metformin HCl 1,000 mg 04/06/17 21:00 04/06/17 21:29 Glucophage PO 1,000 mg BID [facility] Administration Sodium Chloride 10 ml 04/06/17 18:57 Saline Flush FLUSH ASDIRECTED PRN Keep Vein Open - Re-Assessments/Exams Free Text/Narrative Re-Assessment/Exam: 04/06/17 16:27 This patient had a very extensive workup yesterday and most will not be repeated. I will check a troponin because of the chest pain and repeat a 1 view chest x-ray. Chest xray is unchanged from yesterday, troponin is negative. Discussed with Dr. Rae who will assess the patient for admission Departure - Departure Time of Disposition: 19:36 Disposition: Admitted As Inpatient 68 Condition: Fair Clinical Impression: Congestive heart failure Qualifiers: Congestive heart failure type: unspecified congestive heart failure type Congestive heart failure chronicity: acute on chronic Qualified Code(s): I50.9 - Heart failure, unspecified - Discharge Information
[2017-04-06] MEDS ORDERED: Bumetanide 2.5 MG/10 ML MDV IVPUSH SCH (17:30)
--- NOTE | 2017-04-06 18:32 | PCM.HP ---
H&P History of Present Illness - General Date of Service: 04/06/17 Admit Problem/Dx: Admission Diagnosis/Problem Admission Diagnosis/Problem CHF, Congestive heart failure Source of Information: Patient, Old Records, Provider, RN Notes Reviewed History Limitations: Reports: No Limitations - History of Present Illness Initial Comments - Free Text/Narative: Mr. Vazquez is a 77-year-old gentleman who is admitted through the emergency department with anasarca, pulmonary edema, bilateral pleural effusions, secondary to congestive heart failure. Over the past few weeks is become progressively more short of breath to the point where he gets. Short of breath with even minimal exertion. Peripheral edema has slowly increased and he has also experienced PND and orthopnea. He was seen and evaluated in the emergency department last night, felt to have congestive heart failure and treated with IV furosemide. He had a good diuresis but unfortunately did not experience significant improvement in his symptoms. He has a known history of coronary artery disease but denies previous diagnosis of congestive heart failure. Lower Abdomen Pain Score (Numeric/FACES): 2 - Related Data Allergies/Adverse Reactions: Allergies Allergy/AdvReac Type Severity Reaction Status Date / Time cefaclor [From Ceclor] Allergy Rash Verified 04/06/17 15:30 cefuroxime axetil Allergy Cannot Verified 04/06/17 15:30 [From Ceftin] Remember contact metal agent Allergy Cannot Verified 04/06/17 15:30 Remember diltiazem HCl [From Cardizem] Allergy Cannot Verified 04/06/17 15:30 Remember latex Allergy Rash Verified 04/06/17 15:30 metronidazole [From Flagyl] Allergy Rash Verified 04/06/17 15:30 Metronidazole HCl Allergy Rash Verified 04/06/17 15:30 [From Flagyl] naproxen [From Naprosyn] AdvReac Liver Verified 04/06/17 15:30 Problems ranitidine AdvReac Stomach Verified 04/06/17 15:30 Upset Home Medications: Home Meds Furosemide [Lasix] 80 mg PO DAILY 07/14/13 [History] Acetaminophen [Acetaminophen Extra Strength] 1,000 mg PO Q6HR PRN 02/26/14 [ History] Calcium Carbonate/Vitamin D3 [Calcium 600 + Vit D Tablet] 1 tab PO DAILY [History] Fish Oil/[place]-3 Fatty Acids [Fish Oil 1,000 MG] 1 tab PO DAILY 02/26/14 [ History] Glucosamine/D3/Boswellia Ivet [Osteo Bi-Flex Caplet] 1 tab PO DAILY 02/09/15 [ History] Meclizine HCl 25 mg PO TID PRN 02/09/15 [History] Warfarin [Coumadin] 7.5 mg PO ASDIRECTED 11/17/15 [History] Allopurinol [Zyloprim] 100 mg PO DAILY tablet 01/31/17 [Rx] Aspirin 81 mg PO DAILY tab.chew 01/31/17 [Rx] Docusate Sodium [Colace 50 MG/5 ML Liquid] 50 mg PO DAILY cup 01/31/17 [Rx] Metoprolol Succinate [Toprol XL] 50 mg PO DAILY tab.er 01/31/17 [Rx] Nitroglycerin [IJP: Nitroglycerin] 0.4 mg SL ASDIRECTED PRN #0 tablet, sublingual 01/31/17 [Rx] atorvaSTATin [Lipitor] 40 mg PO DAILY tablet 01/31/17 [Rx] glipiZIDE [Glucotrol XL] 20 mg PO BIDM 01/31/17 [Rx] Bumetanide [Bumex] 2 mg PO BID 04/06/17 [History] Sennosides/Docusate Sodium [Senna-Docusate Sodium] 1 each PO DAILY 04/06/17 [ History] Warfarin [Coumadin] 5 mg PO ASDIRECTED 04/06/17 [History] metFORMIN [Glucophage] 1,000 mg PO BID 04/06/17 [History] Past Medical History HEENT History: Reports: Cataract, Glaucoma, Hard of Hearing, Impaired Vision, Macular Degeneration, Otitis Media, Sinusitis Cardiovascular History: Reports: Afib, Bypass, CAD, High Cholesterol, Hypertension, [place], Pacemaker Respiratory History: Reports: SOB Gastrointestinal History: Reports: Chronic Constipation, Chronic Diarrhea, Other (See Below) Other Gastrointestinal History: diverticulitis, bloody stools Genitourinary History: Reports: Prostate Disorder Musculoskeletal History: Reports: Arthritis, Osteoarthritis Neurological History: Reports: CVA, TIA, Vertigo Endocrine/Metabolic History: Reports: Diabetes, Type II Hematologic History: Reports: Anticoagulation Therapy, Blood Transfusion(s) Immunologic History: Reports: None Oncologic (Cancer) History: Reports: Prostate - Infectious Disease History Infectious Disease History: Reports: Chicken Pox, Measles Other Infectious Disease History: unknown to patient - Past Surgical History HEENT Surgical History: Reports: Myringotomy w Tube(s) Cardiovascular Surgical History: Reports: Coronary Artery Bypass, Pacer GI Surgical History: Reports: Appendectomy, Cholecystectomy, Colonoscopy, Hernia , Abdominal, Hernia, Inguinal, Hernia Repair/Other Male Surgical History: Reports: TURP-Transurethral Resection of Prostate Musculoskeletal Surgical History: Reports: Knee Replacement Oncologic Surgical History: Reports: None Dermatological Surgical History: Reports: Skin Biopsy Social & Family History - Family History HEENT: Reports: Impaired Vision Cardiac: Reports: Afib, CAD, [place] Respiratory: Reports: COPD GI: Reports: Cirrhosis, Pancreatitis : Reports: None OBGYN: Reports: None Musculoskeletal: Reports: Arthritis Neurological: Reports: CVA Psychiatric: Reports: None Endocrine/Metabolic: Reports: Diabetes, type II Hematologic: Reports: None Immunologic: Reports: None Dermatologic: Reports: None Oncologic: Reports: None - Tobacco Use Smoking Status *Q: Former Smoker Years of Tobacco use: 42 Packs/Tins Daily: 1 Used Tobacco, but Quit: Yes Month Tobacco Last Used: UNKNOWN Second Hand Smoke Exposure: Yes - Caffeine Use Caffeine Use: Reports: Coffee - Alcohol Use Days Per Week of Alcohol Use: 0 Number of Drinks Per Day: 0 Total Drinks Per Week: 0 - Recreational Drug Use Recreational Drug Use: No H&P Review of Systems - Review of Systems: Review Of Systems: See Below General: Reports: Weakness. Denies: Fever, Chills HEENT: Reports: No Symptoms Pulmonary: Reports: Shortness of Breath, Cough. Denies: Wheezing, Pleuritic Chest Pain, Sputum, Hemoptysis Cardiovascular: Reports: Dyspnea on Exertion, Orthopnea, PND, Edema. Denies: Chest Pain, Palpitations, Lightheadedness, Syncope Gastrointestinal: Reports: No Symptoms Genitourinary: Reports: No Symptoms Musculoskeletal: Reports: Back Pain Skin: Reports: No Symptoms Psychiatric: Reports: No Symptoms Neurological: Reports: No Symptoms Hematologic/Lymphatic: Reports: No Symptoms Immunologic: Reports: No Symptoms Exam - Exam Exam: See Below - Vital Signs Vital Signs: Last Vital Signs Temp 98.8 F 04/06/17 15:53 Pulse 61 04/06/17 16:48 Resp 18 04/06/17 16:48 BP 135/70 04/06/17 17:39 Pulse Ox 95 04/06/17 16:48 Weight: 258 lb 0.006 oz - Exam Quality Assessment: Supplemental Oxygen, DVT Prophylaxis General: Alert, Oriented, Cooperative, Mild Distress HEENT: Conjunctiva Clear, Mucosa Moist & [place], Nares Patent, Posterior Pharynx Clear, Pupils Equal. No: Hearing Intact Neck: Supple, Trachea Midline, +2 Carotid Pulse wo Bruit Lungs: Decreased Breath Sounds, Rales. No: Crackles, Rhonchi, Wheezing Cardiovascular: Regular Rate, Normal S1, Normal S2, Irregular Rhythm. No: Bradycardia, Tachycardia, Systolic Murmur, Diastolic Murmur GI/Abdominal Exam: Normal Bowel Sounds, Soft, Non-Tender, No Distention Back Exam: Normal Inspection, Full Range of Motion, NT Extremities: Pedal Edema, Other (dependent peripheral edema extending up into the buttocks) Skin: Warm, Dry, Intact Neurological: Cranial Nerves Intact, Strength Equal Bilateral, Normal Speech, Normal Tone, Sensation Intact. No: Focal Deficit Neuro Extensive - Mental Status: Alert, Oriented x3, Normal Mood/Affect, Normal Cognition, Memory Intact - Patient Data Lab Results Last 24 hrs: Laboratory Results - last 24 hr 04/06/17 Range/Units 16:22 Troponin I 0.033 (0.000-0.056) ng/mL *Q Meaningful Use (ADM) - VTE *Q VTE Criteria *Q: VTE Pharmacological Contraindications *Q: High INR Value - VTE Risk Assess *Q Each Risk Factor Represents 1 Point: Swollen Legs, Current, Obesity (BMI greater than 30), Congestive Heart Failure, Less than 1 Month Total Score 1 Point Risk Factors: 3 Each Risk Factor Represents 2 Points: None Total Score 2 Point Risk Factors: 0 Each Risk Factor Represents 3 Points: Age 75 Years or Greater Total Score 3 Point Risk Factors: 3 Each Risk Factor Represents 5 Points: None Total Score 5 Point Risk Factors: 0 Venous Thromboembolism Risk Factor Score *Q: 6 - Stroke *Q Stroke Criteria *Q: - AMI *Q AMI Criteria *Q: Problem List Initiated/Reviewed/Updated: Yes Orders Last 24hrs: Active Orders 24 hr Category Date Time Status Patient Status Manage Transfer [TRANSFER] Routine ADT 04/06/17 18:13 Ordered Cardiac Monitoring [RC] .As Directed Care 04/06/17 18:13 Ordered Ang Chest [CT] Stat Exams 04/06/17 18:11 Ordered Chest 1V Frontal [CR] Stat Exams 04/06/17 16:10 Taken Bumetanide [Bumex] Med 04/06/17 17:30 Active 2 mg IVPUSH Q24H Resuscitation Status Routine Resus Stat 04/06/17 18:17 Ordered Medication Orders Bumetanide (Bumex) 2 mg IVPUSH Q24H [facility] Last Admin: 04/06/17 17:39 Dose: 2 mg Assessment/Plan Comment:: ASSESSMENT AND PLAN CONGESTIVE HEART FAILURE-progressive history of increase in edema and shortness of breath, also has experienced PND and orthopnea. Chest x-ray shows evidence of pulmonary edema as well as bilateral pleural effusions. D-dimer obtained in the emergency department yesterday was significantly elevated 1999. He does have a known underlying history of congestive heart failure but denies significant symptoms of chest pain or pressure. -CT scan of the chest with PE protocol -Bumex 2 mg IV now and every 12 hours -2 g sodium diet -Echocardiogram when available in 4 days, likely as an outpatient -Consider MAURA inhibitor therapy CORONARY ARTERY DISEASE-currently asymptomatic, troponin normal -Continue outpatient medical regimen TYPE 2 DIABETES MELLITUS -Hold Glucotrol -Metformin continue 1 g twice daily -4 times a day glucometers -Low-dose sliding scale NovoLog ATRIAL FIBRILLATION WITH CONTROLLED VENTRICULAR RESPONSE -Continue current medical therapy -Continue anticoagulation with warfarin -INR in a.m. MAINTENANCE ISSUES -DVT prophylaxis;current therapy with warfarin should provide adequate DVT prophylaxis -GI prophylaxis;not indicated -Emmanuel catheter;not indicated -Nutrition;2 g sodium, and system carb diet -Nicotine dependence;not required CODE STATUS-FULL CODE ADMISSION STATUS-patient will be admitted to inpatient status, expect at least a 2 night hospital stay for evaluation and management of problems as outlined above. At the time of this admission I do not reasonably expected evaluation and management of this problem will require more than a 96 hour hospital stay. DISPOSITION-anticipate discharge to home after the hospital stay. PRIMARY CARE PROVIDER-Dr. Ureña
[2017-04-06] MEDS ORDERED: Glucose Gel 15 GM in 37.5 GM Tube PO PRN (18:57)
[2017-04-06] MEDS ORDERED: Nitroglycerin 0.4 MG Tab.SL SL PRN (18:57)
[2017-04-06] MEDS ORDERED: Magnesium Hydroxide 400 MG/5 ML Susp 30 ML Cup PO PRN (18:57)
[2017-04-06] MEDS ORDERED: Sodium Chloride 0.9% 10 ML Syringe FLUSH PRN ×2 (18:57)
[2017-04-06] MEDS ORDERED: Ondansetron 4 MG/2 ML SDV IV PRN (18:57)
[2017-04-06] MEDS ORDERED: 50% Dextrose in Water 50 ML Syringe IV PRN (18:57)
[2017-04-06] MEDS ORDERED: Polyethylene Glycol 3350 Powder 17 GM Packet PO PRN (18:57)
[2017-04-06] MEDS ORDERED: oxyCODONE 5 MG Tab PO PRN (18:57)
[2017-04-06] MEDS ORDERED: Sodium Chloride 0.9% 80 ML IV SCH (19:00)
[2017-04-06] MEDS ORDERED: Iopamidol 755 Mg/ML 100 ML Bottle IV SCH (19:00)
[2017-04-06] MEDS ORDERED: metFORMIN 500 MG Tab PO SCH (21:00)
[2017-04-06] MEDS: Albuterol 0.083% 2.5 MG/3 ML Neb Soln NEB PRN (22:28)
--- NOTE | 2017-04-07 00:42 | PCM.SN ---
- Free Text/Narrative Note: Mr. Vazquez declines Chest CT angio because he is uncomfortable laying flat a; declines testing p; declines Chest CT angio. will continue present plan of care.
[2017-04-07] MEDS ORDERED: Bumetanide 2.5 MG/10 ML MDV IVPUSH SCH (07:00)
[2017-04-07] MEDS: Insulin Aspart 100 Units/ML 3 ML Pen SUBCUT SCH ×2 (07:35→22:03)
[2017-04-07] MEDS: metFORMIN 500 MG Tab PO SCH ×2 (08:26→18:19)
[2017-04-07] MEDS: Metoprolol Succinate 50 MG Tab.ER PO SCH (08:27)
[2017-04-07] MEDS: Aspirin 81 MG Tab.Chew PO SCH (08:28)
[2017-04-07] MEDS: atorvaSTATin 20 MG Tab PO SCH (08:28)
[2017-04-07] MEDS: Allopurinol 100 MG Tab PO SCH (08:28)
--- NOTE | 2017-04-07 09:12 | CR ---
Portable chest Comparison: 05 April 2017. Cardiac enlargement with mild vascular engorgement. Small pleural effusions are unchanged. The left cardiac pacemaker stable. Impression: 1. CHF without significant interval change.
[2017-04-07] MEDS ORDERED: Warfarin 5 MG Tab PO SCH (13:00)
--- NOTE | 2017-04-07 15:18 | PCM.PN ---
- General Info Date of Service: 04/07/17 Functional Status: Reports: Pain Controlled, Tolerating Diet, Urinating - Review of Systems General: Reports: Weakness. Denies: Fever, Chills Pulmonary: Reports: Shortness of Breath, Cough. Denies: Pleuritic Chest Pain, Sputum, Hemoptysis, Wheezing Cardiovascular: Reports: Dyspnea on Exertion, Orthopnea, PND, Edema. Denies: Chest Pain, Palpitations Gastrointestinal: Reports: No Symptoms Systems Review Comment:: Mr. Vazquez has been stable since admission, he reports/shortness of breath and cough. Diuresis thus far has been suboptimal despite twice-daily dosing of IV Bumex. Vital signs have been stable and he has remained afebrile. - Patient Data Vitals - Most Recent: Last Vital Signs Temp 97.1 F 04/07/17 11:00 Pulse 63 04/07/17 11:00 Resp 20 04/07/17 11:00 BP 129/75 04/07/17 11:00 Pulse Ox 97 04/07/17 11:00 Weight - Most Recent: 240 lb 12.798 oz I&O - Last 24 Hours: Intake & Output 04/07/17 04/07/17 04/07/17 06:59 14:59 22:59 Intake Total 1140 1440 Output Total 400 700 Balance 740 740 Lab Results Last 24 Hours: Laboratory Results - last 24 hr 04/06/17 04/07/17 04/07/17 Range/Units 19:59 04:51 04:51 WBC 5.8 (4.5-11.0) K/uL RBC 3.36 L (4.30-5.90) M/uL Hgb 10.4 L (12.0-15.0) g/dL Hct 31.6 L (40.0-54.0) % MCV 94 (80-98) fL MCH 31 (27-31) pg MCHC 33 (32-36) % Plt Count 147 L (150-400) K/uL Neut % (Auto) 72 H (36-66) % Lymph % (Auto) 15 L (24-44) % [place] % (Auto) 10 H (2-6) % Eos % (Auto) 4 (2-4) % Baso % (Auto) 0 (0-1) % PT 20.5 H (9.5-12.0) sec INR 1.87 H (0.80-1.20) Sodium (140-148) mmol/L Potassium (3.6-5.2) mmol/L Chloride (100-108) mmol/L Carbon Dioxide (21-32) mmol/L Anion Gap (5.0-14.0) mmol/L BUN (7-18) mg/dL Creatinine (0.8-1.3) mg/dL Est Cr Clr Drug Dosing mL/min Estimated GFR (MDRD) (>60) Glucose (74-106) mg/dL Calcium (8.5-10.1) mg/dL Magnesium (1.8-2.4) mg/dL Total Bilirubin (0.2-1.0) mg/dL AST (15-37) U/L ALT (12-78) U/L Alkaline Phosphatase (46-116) U/L Total Protein (6.4-8.2) g/dL Albumin (3.4-5.0) g/dL Globulin (2.3-3.5) g/dL Albumin/Globulin Ratio (1.2-2.2) Urine Color Yellow Urine Appearance Clear Urine pH 6.0 (4.5-8.0) Ur Specific [place] 1.015 (1.008-1.030) Urine Protein Negative (NEGATIVE) mg/dL Urine Glucose (UA) Normal (NEGATIVE) mg/dL Urine Ketones Negative (NEGATIVE) mg/dL Urine Occult Blood Negative (NEGATIVE) Urine Nitrite Negative (NEGAITVE) Urine Bilirubin Negative (NEGATIVE) Urine Urobilinogen Normal (NORMAL) mg/dL Ur Leukocyte Esterase Negative (NEGATIVE) Urine RBC Not seen (0-5) Urine WBC 0-5 (0-5) Ur Epithelial Cells Rare Amorphous Sediment Not seen Urine Bacteria Rare Urine Mucus Not seen 04/07/17 Range/Units 04:51 WBC (4.5-11.0) K/uL RBC (4.30-5.90) M/uL Hgb (12.0-15.0) g/dL Hct (40.0-54.0) % MCV (80-98) fL MCH (27-31) pg MCHC (32-36) % Plt Count (150-400) K/uL Neut % (Auto) (36-66) % Lymph % (Auto) (24-44) % [place] % (Auto) (2-6) % Eos % (Auto) (2-4) % Baso % (Auto) (0-1) % PT (9.5-12.0) sec INR (0.80-1.20) Sodium 134 L (140-148) mmol/L Potassium 3.7 (3.6-5.2) mmol/L Chloride 99 L (100-108) mmol/L Carbon Dioxide 29 (21-32) mmol/L Anion Gap 9.7 (5.0-14.0) mmol/L BUN 20 H (7-18) mg/dL Creatinine 1.1 (0.8-1.3) mg/dL Est Cr Clr Drug Dosing 69.35 mL/min Estimated GFR (MDRD) > 60 (>60) Glucose 165 H (74-106) mg/dL Calcium 9.0 (8.5-10.1) mg/dL Magnesium 1.9 (1.8-2.4) mg/dL Total Bilirubin 1.2 H (0.2-1.0) mg/dL AST 41 H (15-37) U/L ALT 20 (12-78) U/L Alkaline Phosphatase 202 H (46-116) U/L Total Protein 7.4 (6.4-8.2) g/dL Albumin 2.5 L (3.4-5.0) g/dL Globulin 4.9 H (2.3-3.5) g/dL Albumin/Globulin Ratio 0.5 L (1.2-2.2) Urine Color Urine Appearance Urine pH (4.5-8.0) Ur Specific [place] (1.008-1.030) Urine Protein (NEGATIVE) mg/dL Urine Glucose (UA) (NEGATIVE) mg/dL Urine Ketones (NEGATIVE) mg/dL Urine Occult Blood (NEGATIVE) Urine Nitrite (NEGAITVE) Urine Bilirubin (NEGATIVE) Urine Urobilinogen (NORMAL) mg/dL Ur Leukocyte Esterase (NEGATIVE) Urine RBC (0-5) Urine WBC (0-5) Ur Epithelial Cells Amorphous Sediment Urine Bacteria Urine Mucus Med Orders - Current: Current Medications Acetaminophen (Tylenol) 650 mg PO Q4H PRN PRN Reason: Pain (Mild 1-3)/fever Albuterol (Proventil Neb Soln) 2.5 mg NEB Q4H PRN PRN Reason: Shortness Of Breath/wheezing Last Admin: 04/06/17 22:28 Dose: 2.5 mg Allopurinol (Zyloprim) 100 mg PO DAILY [facility] Last Admin: 04/07/17 08:28 Dose: 100 mg Aspirin (Aspirin) 81 mg PO DAILY [facility] Last Admin: 04/07/17 08:28 Dose: 81 mg Atorvastatin Calcium (Lipitor) 40 mg PO DAILY [facility] Last Admin: 04/07/17 08:28 Dose: 40 mg Bumetanide (Bumex) 4 mg IVPUSH Q12H [facility] Dextrose (Glutose 15) 15 gm PO ONETIME PRN PRN Reason: Hypoglycemia Dextrose/Water (Dextrose 50% In Water) 50 ml IV ONETIME PRN PRN Reason: Hypoglycemia Insulin Aspart (Novolog) 0 unit SUBCUT ASDIRECTED [facility] PRN Reason: Protocol Last Admin: 04/07/17 07:35 Dose: 1 unit Lisinopril (Prinivil) 5 mg PO DAILY [facility] Magnesium Hydroxide (Milk Of Magnesia) 30 ml PO Q12H PRN PRN Reason: Constipation Last Admin: 04/07/17 14:21 Dose: 30 ml Metformin HCl (Glucophage) 1,000 mg PO BIDMEALS [facility] Last Admin: 04/07/17 08:26 Dose: 1,000 mg Metoprolol Succinate (Toprol Xl) 50 mg PO DAILY [facility] Last Admin: 04/07/17 08:27 Dose: 50 mg Nitroglycerin (Nitrostat) 0.4 mg SL ASDIRECTED PRN PRN Reason: Chest Pain Ondansetron HCl (Zofran) 4 mg IV Q4H PRN PRN Reason: Nausea/Vomiting Oxycodone HCl (Oxycodone) 5 mg PO Q4H PRN PRN Reason: Pain (moderate 4-6) Polyethylene Glycol (Miralax) 17 gm PO DAILY PRN PRN Reason: Constipation Senna/Docusate Sodium (Senna Plus) 1 tab PO DAILY [facility] Last Admin: 04/07/17 08:28 Dose: 1 tab Sodium Chloride (Saline Flush) 10 ml FLUSH ASDIRECTED PRN PRN Reason: Keep Vein Open Warfarin Sodium (Coumadin) 5 mg PO MoFr@1300 [facility] Last Admin: 04/07/17 13:23 Dose: 5 mg Warfarin Sodium (Coumadin) 7.5 mg PO SuTuWeThSa@1300 [facility] Discontinued Medications Bumetanide (Bumex) 2 mg IVPUSH Q24H [facility] Last Admin: 04/06/17 17:39 Dose: 2 mg Bumetanide (Bumex) 2 mg IVPUSH Q12H [facility] Last Admin: 04/07/17 08:24 Dose: 2 mg Sodium Chloride (Normal Saline) 80 mls @ 3 mls/sec IV ASDIRECTED [facility] Iopamidol (Isovue-370 (76%)) 100 ml IV . DIRECTED [facility] Metformin HCl (Glucophage) 1,000 mg PO BID [facility] Last Admin: 04/06/17 21:29 Dose: 1,000 mg Sodium Chloride (Saline Flush) 10 ml FLUSH ASDIRECTED PRN PRN Reason: Keep Vein Open - Exam Quality Assessment: DVT Prophylaxis General: Alert, Oriented, Cooperative, No Acute Distress Lungs: Clear to Auscultation, Normal Respiratory Effort Cardiovascular: Regular Rate, No Murmurs, Irregular Rhythm GI/Abdominal Exam: Normal Bowel Sounds, Soft, Non-Tender, No Distention Back Exam: Normal Inspection, Full Range of Motion Extremities: Pedal Edema Skin: Warm, Dry, Intact - Problem List Review Problem List Initiated/Reviewed/Updated: Yes - My Orders Last 24 Hours: My Active Orders 04/06/17 18:17 Resuscitation Status Routine 04/06/17 18:57 Patient Status [ADT] Routine Blood Glucose Check, Bedside [RC] QIDACANDBED Communication Order [RC] ASDIRECTED Diabetes Education [RC] Click to Edit Intake and Output [RC] QSHIFT Notify Provider Vital Signs [RC] ASDIRECTED Notify Provider [RC] PRN Oxygen Therapy [RC] PRN RT Aerosol Therapy [RC] ASDIRECTED Up With Assistance [RC] ASDIRECTED VTE/DVT Education [RC] Per Unit Routine Vital Signs [RC] Q4H Acetaminophen [Tylenol] 650 mg PO Q4H PRN Albuterol [Proventil Neb Soln] 2.5 mg NEB Q4H PRN Dextrose 50% in Water 50 ml IV ONETIME PRN Dextrose [Glutose 15] 15 gm PO ONETIME PRN Insulin Aspart [NovoLOG] See Protocol SUBCUT ASDIRECTED Magnesium Hydroxide [Milk of Magnesia] 30 ml PO Q12H PRN Ondansetron [Zofran] 4 mg IV Q4H PRN Polyethylene Glycol 3350 [MiraLAX] 17 gm PO DAILY PRN Sodium Chloride 0.9% [Saline Flush] 10 ml FLUSH ASDIRECTED PRN oxyCODONE 5 mg PO Q4H PRN Saline Lock Insert [OM.PC] Routine VTE Pharmacological Contraindications [AST] Per Unit Routine 04/06/17 Dinner 2 Gram Sodium Diet [DIET] Consistent Carbohydrate Diet [DIET] 04/07/17 06:20 Daily Weight [Height and Weight] [RC] DAILY 04/07/17 08:00 metFORMIN [Glucophage] 1,000 mg PO BIDMEALS 04/07/17 15:11 Bumetanide [Bumex] 4 mg IVPUSH Q12H 04/07/17 16:30 GLUCOSE POC LAB TO COLLECT [POC] QIDACANDB04/07/17 21:00 GLUCOSE POC LAB TO COLLECT [POC] QIDACANDBED 04/08/17 05:00 BASIC METABOLIC PANEL,BMP [CHEM] Timed INR,PT,PROTHROMBIN TIME [COAG] Timed 04/08/17 07:30 GLUCOSE POC LAB TO COLLECT [POC] QIDACANDBED 04/08/17 09:00 Lisinopril [Prinivil] 5 mg PO DAILY 04/08/17 11:30 GLUCOSE POC LAB TO COLLECT [POC] QIDACANDBED 04/08/17 16:30 GLUCOSE POC LAB TO COLLECT [POC] QIDACANDBED 04/08/17 21:00 GLUCOSE POC LAB TO COLLECT [POC] QIDACANDBED 04/09/17 07:30 GLUCOSE POC LAB TO COLLECT [POC] QIDACANDBED 04/09/17 11:30 GLUCOSE POC LAB TO COLLECT [POC] QIDACANDBED 04/09/17 16:30 GLUCOSE POC LAB TO COLLECT [POC] QIDACANDBED 04/09/17 21:00 GLUCOSE POC LAB TO COLLECT [POC] QIDACANDBED 04/10/17 07:30 GLUCOSE POC LAB TO COLLECT [POC] QIDACANDBED 04/10/17 11:30 GLUCOSE POC LAB TO COLLECT [POC] QIDACANDBED 04/10/17 16:30 GLUCOSE POC LAB TO COLLECT [POC] QIDACANDBED 04/10/17 21:00 GLUCOSE POC LAB TO COLLECT [POC] QIDACANDBED 04/11/17 07:30 GLUCOSE POC LAB TO COLLECT [POC] QIDACANDBED 04/11/17 11:30 GLUCOSE POC LAB TO COLLECT [POC] QIDACANDBED 04/11/17 16:30 GLUCOSE POC LAB TO COLLECT [POC] QIDACANDBED 04/11/17 21:00 GLUCOSE POC LAB TO COLLECT [POC] QIDACANDBED 04/12/17 07:30 GLUCOSE POC LAB TO COLLECT [POC] QIDACANDBED 04/12/17 11:30 GLUCOSE POC LAB TO COLLECT [POC] QIDACANDBED 04/12/17 16:30 GLUCOSE POC LAB TO COLLECT [POC] QIDACANDBED 04/12/17 21:00 GLUCOSE POC LAB TO COLLECT [POC] QIDACANDBED 04/13/17 07:30 GLUCOSE POC LAB TO COLLECT [POC] QIDACANDBED 04/13/17 11:30 GLUCOSE POC LAB TO COLLECT [POC] QIDACANDBED 04/13/17 16:30 GLUCOSE POC LAB TO COLLECT [POC] QIDACANDBED 04/13/17 21:00 GLUCOSE POC LAB TO COLLECT [POC] QIDACANDBED 04/14/17 07:30 GLUCOSE POC LAB TO COLLECT [POC] QIDACANDBED 04/14/17 11:30 GLUCOSE POC LAB TO COLLECT [POC] QIDACANDBED 04/14/17 16:30 GLUCOSE POC LAB TO COLLECT [POC] QIDACANDBED 04/14/17 21:00 GLUCOSE POC LAB TO COLLECT [POC] QIDACANDBED 04/15/17 07:30 GLUCOSE POC LAB TO COLLECT [POC] QIDACANDBED 04/15/17 11:30 GLUCOSE POC LAB TO COLLECT [POC] QIDACANDBED 04/15/17 16:30 GLUCOSE POC LAB TO COLLECT [POC] QIDACANDBED 04/15/17 21:00 GLUCOSE POC LAB TO COLLECT [POC] QIDACANDBED 04/16/17 07:30 GLUCOSE POC LAB TO COLLECT [POC] QIDACANDBED 04/16/17 11:30 GLUCOSE POC LAB TO COLLECT [POC] QIDACANDBED 04/16/17 16:30 GLUCOSE POC LAB TO COLLECT [POC] QIDACANDBED 04/16/17 21:00 GLUCOSE POC LAB TO COLLECT [POC] QIDACANDBED 04/17/17 07:30 GLUCOSE POC LAB TO COLLECT [POC] QIDACANDBED 04/17/17 11:30 GLUCOSE POC LAB TO COLLECT [POC] QIDACANDBED 04/17/17 16:30 GLUCOSE POC LAB TO COLLECT [POC] QIDACANDBED - Plan Plan:: ASSESSMENT AND PLAN CONGESTIVE HEART FAILURE-mild to moderate improvement of symptoms since admission. He refused CT scan of the chest to evaluate for pulmonary emboli. -Bumex 4 mg IV now and every 12 hours -2 g sodium diet -Echocardiogram when available in 3 days, likely as an outpatient -Lisinopril 5 mg by mouth daily -Continue outpatient medications including metoprolol CORONARY ARTERY DISEASE-currently asymptomatic, troponin normal -Continue outpatient medical regimen TYPE 2 DIABETES MELLITUS -Hold Glucotrol -Metformin continue 1 g twice daily -4 times a day glucometers -Low-dose sliding scale NovoLog ATRIAL FIBRILLATION WITH CONTROLLED VENTRICULAR RESPONSE -Continue current medical therapy -Continue anticoagulation with warfarin -INR in a.m. MAINTENANCE ISSUES -DVT prophylaxis;current therapy with warfarin should provide adequate DVT prophylaxis -GI prophylaxis;not indicated -Emmanuel catheter;not indicated -Nutrition;2 g sodium, and system carb diet -Nicotine dependence;not required CODE STATUS-FULL CODE ADMISSION STATUS-patient will be admitted to inpatient status, expect at least a 2 night hospital stay for evaluation and management of problems as outlined above. At the time of this admission I do not reasonably expected evaluation and management of this problem will require more than a 96 hour hospital stay. DISPOSITION-anticipate discharge to home after the hospital stay. PRIMARY CARE PROVIDER-Dr. Ureña
[2017-04-07] MEDS: Bumetanide 2.5 MG/10 ML MDV IVPUSH SCH (17:15)
[2017-04-08] MEDS: Bumetanide 2.5 MG/10 ML MDV IVPUSH SCH (04:34)
[2017-04-08] MEDS: metFORMIN 500 MG Tab PO SCH ×2 (07:12→16:36)
[2017-04-08] MEDS: atorvaSTATin 20 MG Tab PO SCH (08:37)
[2017-04-08] MEDS: Metoprolol Succinate 50 MG Tab.ER PO SCH (08:38)
[2017-04-08] MEDS: Aspirin 81 MG Tab.Chew PO SCH (08:38)
[2017-04-08] MEDS: Lisinopril 5 MG Tab PO SCH (08:38)
[2017-04-08] MEDS: Allopurinol 100 MG Tab PO SCH (08:39)
[2017-04-08] MEDS: Insulin Aspart 100 Units/ML 3 ML Pen SUBCUT SCH ×3 (11:28→21:04)
--- NOTE | 2017-04-08 12:01 | PCM.PN ---
- General Info Date of Service: 04/08/17 Functional Status: Reports: Tolerating Diet, Urinating - Review of Systems General: Denies: Fever, Chills Pulmonary: Reports: Shortness of Breath. Denies: Pleuritic Chest Pain, Cough, Sputum Cardiovascular: Reports: Dyspnea on Exertion, Edema. Denies: Chest Pain, Orthopnea, PND Gastrointestinal: Reports: No Symptoms Systems Review Comment:: Mr. Vazquez has had only minimal diuresis despite increasing dose of Bumex to 4 mg twice daily. He has noted modest improvement in his shortness of breath as well as peripheral edema. Vital signs have been stable and he has remained afebrile. - Patient Data Vitals - Most Recent: Last Vital Signs Temp 98.4 F 04/08/17 11:11 Pulse 64 04/08/17 11:11 Resp 16 04/08/17 11:11 BP 106/80 04/08/17 11:11 Pulse Ox 98 04/08/17 11:11 Weight - Most Recent: 239 lb 14.4 oz I&O - Last 24 Hours: Intake & Output 04/07/17 04/08/17 04/08/17 22:59 06:59 14:59 Intake Total 360 120 480 Output Total 625 600 650 Balance -265 -480 -170 Lab Results Last 24 Hours: Laboratory Results - last 24 hr 04/08/17 04/08/17 Range/Units 04:10 04:10 PT 18.2 H (9.5-12.0) sec INR 1.67 H (0.80-1.20) Sodium 135 L (140-148) mmol/L Potassium 3.9 (3.6-5.2) mmol/L Chloride 99 L (100-108) mmol/L Carbon Dioxide 31 (21-32) mmol/L Anion Gap 8.9 (5.0-14.0) mmol/L BUN 21 H (7-18) mg/dL Creatinine 0.9 (0.8-1.3) mg/dL Est Cr Clr Drug Dosing 85.21 mL/min Estimated GFR (MDRD) > 60 (>60) Glucose 114 H (74-106) mg/dL Calcium 8.6 (8.5-10.1) mg/dL Med Orders - Current: Current Medications Acetaminophen (Tylenol) 650 mg PO Q4H PRN PRN Reason: Pain (Mild 1-3)/fever Albuterol (Proventil Neb Soln) 2.5 mg NEB Q4H PRN PRN Reason: Shortness Of Breath/wheezing Last Admin: 04/06/17 22:28 Dose: 2.5 mg Allopurinol (Zyloprim) 100 mg PO DAILY [facility] Last Admin: 04/08/17 08:39 Dose: 100 mg Aspirin (Aspirin) 81 mg PO DAILY [facility] Last Admin: 04/08/17 08:38 Dose: 81 mg Atorvastatin Calcium (Lipitor) 40 mg PO DAILY [facility] Last Admin: 04/08/17 08:37 Dose: 40 mg Dextrose (Glutose 15) 15 gm PO ONETIME PRN PRN Reason: Hypoglycemia Dextrose/Water (Dextrose 50% In Water) 50 ml IV ONETIME PRN PRN Reason: Hypoglycemia Bumetanide 10 mg/ Sodium (Chloride) 100 mls @ 10 mls/hr IV TITRATE EDY; 1 MG/HR PRN Reason: Protocol Stop: 04/11/17 12:01 Insulin Aspart (Novolog) 0 unit SUBCUT ASDIRECTED [facility] PRN Reason: Protocol Last Admin: 04/08/17 11:28 Dose: 1 unit Lisinopril (Prinivil) 5 mg PO DAILY [facility] Last Admin: 04/08/17 08:38 Dose: 5 mg Magnesium Hydroxide (Milk Of Magnesia) 30 ml PO Q12H PRN PRN Reason: Constipation Last Admin: 04/07/17 14:21 Dose: 30 ml Metformin HCl (Glucophage) 1,000 mg PO BIDMEALS [facility] Last Admin: 04/08/17 07:12 Dose: 1,000 mg Metoprolol Succinate (Toprol Xl) 50 mg PO DAILY [facility] Last Admin: 04/08/17 08:38 Dose: 50 mg Nitroglycerin (Nitrostat) 0.4 mg SL ASDIRECTED PRN PRN Reason: Chest Pain Ondansetron HCl (Zofran) 4 mg IV Q4H PRN PRN Reason: Nausea/Vomiting Oxycodone HCl (Oxycodone) 5 mg PO Q4H PRN PRN Reason: Pain (moderate 4-6) Polyethylene Glycol (Miralax) 17 gm PO DAILY PRN PRN Reason: Constipation Senna/Docusate Sodium (Senna Plus) 1 tab PO DAILY [facility] Last Admin: 04/08/17 08:38 Dose: 1 tab Sodium Chloride (Saline Flush) 10 ml FLUSH ASDIRECTED PRN PRN Reason: Keep Vein Open Warfarin Sodium (Coumadin) 5 mg PO MoFr@1300 [facility] Last Admin: 04/07/17 13:23 Dose: 5 mg Warfarin Sodium (Coumadin) 7.5 mg PO SuTuWeThSa@1300 [facility] Discontinued Medications Bumetanide (Bumex) 2 mg IVPUSH Q24H [facility] Last Admin: 04/06/17 17:39 Dose: 2 mg Bumetanide (Bumex) 2 mg IVPUSH Q12H [facility] Last Admin: 04/07/17 08:24 Dose: 2 mg Bumetanide (Bumex) 4 mg IVPUSH Q12H [facility] Last Admin: 04/08/17 04:34 Dose: 4 mg Sodium Chloride (Normal Saline) 80 mls @ 3 mls/sec IV ASDIRECTED [facility] Iopamidol (Isovue-370 (76%)) 100 ml IV . DIRECTED [facility] Metformin HCl (Glucophage) 1,000 mg PO BID [facility] Last Admin: 04/06/17 21:29 Dose: 1,000 mg Sodium Chloride (Saline Flush) 10 ml FLUSH ASDIRECTED PRN PRN Reason: Keep Vein Open - Exam Quality Assessment: DVT Prophylaxis General: Alert, Oriented, Cooperative, Mild Distress Lungs: Clear to Auscultation, Normal Respiratory Effort Cardiovascular: Regular Rate, Irregular Rhythm, Murmurs. No: Bradycardia, Tachycardia GI/Abdominal Exam: Normal Bowel Sounds, Soft, Non-Tender, No Distention Extremities: Pedal Edema (extending up into the upper thighs) Skin: Warm, Dry, Intact - Problem List Review Problem List Initiated/Reviewed/Updated: Yes - My Orders Last 24 Hours: My Active Orders 04/08/17 07:30 GLUCOSE POC LAB TO COLLECT [POC] QIDACANDBED 04/08/17 09:00 Lisinopril [Prinivil] 5 mg PO DAILY 04/08/17 11:30 Bumetanide [Bumex] 10 mg Dextrose 5% in Water 60 ml IV TITRATE 04/08/17 16:30 GLUCOSE POC LAB TO COLLECT [POC] QIDACANDBED 04/08/17 21:00 GLUCOSE POC LAB TO COLLECT [POC] QIDACANDBED 04/09/17 05:00 BASIC METABOLIC PANEL,BMP [CHEM] Timed INR,PT,PROTHROMBIN TIME [COAG] Timed MAGNESIUM [CHEM] Timed 04/09/17 07:30 GLUCOSE POC LAB TO COLLECT [POC] QIDACANDBED 04/09/17 11:30 GLUCOSE POC LAB TO COLLECT [POC] QIDACANDBED 04/09/17 16:30 GLUCOSE POC LAB TO COLLECT [POC] QIDACANDBED 04/09/17 21:00 GLUCOSE POC LAB TO COLLECT [POC] QIDACANDBED 04/10/17 07:30 GLUCOSE POC LAB TO COLLECT [POC] QIDACANDBED 04/10/17 11:30 GLUCOSE POC LAB TO COLLECT [POC] QIDACANDBED 04/10/17 16:30 GLUCOSE POC LAB TO COLLECT [POC] QIDACANDBED 04/10/17 21:00 GLUCOSE POC LAB TO COLLECT [POC] QIDACANDBED 04/11/17 07:30 GLUCOSE POC LAB TO COLLECT [POC] QIDACANDBED 04/11/17 11:30 GLUCOSE POC LAB TO COLLECT [POC] QIDACANDBED 04/11/17 16:30 GLUCOSE POC LAB TO COLLECT [POC] QIDACANDBED 04/11/17 21:00 GLUCOSE POC LAB TO COLLECT [POC] QIDACANDBED 04/12/17 07:30 GLUCOSE POC LAB TO COLLECT [POC] QIDACANDBED 04/12/17 11:30 GLUCOSE POC LAB TO COLLECT [POC] QIDACANDBED 04/12/17 16:30 GLUCOSE POC LAB TO COLLECT [POC] QIDACANDBED 04/12/17 21:00 GLUCOSE POC LAB TO COLLECT [POC] QIDACANDBED 04/13/17 07:30 GLUCOSE POC LAB TO COLLECT [POC] QIDACANDBED 04/13/17 11:30 GLUCOSE POC LAB TO COLLECT [POC] QIDACANDBED 04/13/17 16:30 GLUCOSE POC LAB TO COLLECT [POC] QIDACANDBED 04/13/17 21:00 GLUCOSE POC LAB TO COLLECT [POC] QIDACANDBED 04/14/17 07:30 GLUCOSE POC LAB TO COLLECT [POC] QIDACANDBED 04/14/17 11:30 GLUCOSE POC LAB TO COLLECT [POC] QIDACANDBED 04/14/17 16:30 GLUCOSE POC LAB TO COLLECT [POC] QIDACANDBED 04/14/17 21:00 GLUCOSE POC LAB TO COLLECT [POC] QIDACANDBED 04/15/17 07:30 GLUCOSE POC LAB TO COLLECT [POC] QIDACANDBED 04/15/17 11:30 GLUCOSE POC LAB TO COLLECT [POC] QIDACANDBED 04/15/17 16:30 GLUCOSE POC LAB TO COLLECT [POC] QIDACANDBED 04/15/17 21:00 GLUCOSE POC LAB TO COLLECT [POC] QIDACANDBED 04/16/17 07:30 GLUCOSE POC LAB TO COLLECT [POC] QIDACANDBED 04/16/17 11:30 GLUCOSE POC LAB TO COLLECT [POC] QIDACANDBED 04/16/17 16:30 GLUCOSE POC LAB TO COLLECT [POC] QIDACANDBED 04/16/17 21:00 GLUCOSE POC LAB TO COLLECT [POC] QIDACANDBED 04/17/17 07:30 GLUCOSE POC LAB TO COLLECT [POC] QIDACANDBED 04/17/17 11:30 GLUCOSE POC LAB TO COLLECT [POC] QIDACANDBED 04/17/17 16:30 GLUCOSE POC LAB TO COLLECT [POC] QIDACANDBED - Plan Plan:: ASSESSMENT AND PLAN CONGESTIVE HEART FAILURE-mild to moderate improvement of symptoms since admission. He refused CT scan of the chest to evaluate for pulmonary emboli.relatively poor diuresis despite increase dose of Bumex -Bumex 1 mg per hour continuous infusion -2 g sodium diet -Echocardiogram when available in 2 days, likely as an outpatient -Lisinopril 5 mg by mouth daily -Continue outpatient medications including metoprolol CORONARY ARTERY DISEASE-currently asymptomatic, troponin normal -Continue outpatient medical regimen TYPE 2 DIABETES MELLITUS -Hold Glucotrol -Metformin continue 1 g twice daily -4 times a day glucometers -Low-dose sliding scale NovoLog ATRIAL FIBRILLATION WITH CONTROLLED VENTRICULAR RESPONSE -Continue current medical therapy -Continue anticoagulation with warfarin -INR in a.m. MAINTENANCE ISSUES -DVT prophylaxis;current therapy with warfarin should provide adequate DVT prophylaxis -GI prophylaxis;not indicated -Emmanuel catheter;not indicated -Nutrition;2 g sodium, and system carb diet -Nicotine dependence;not required CODE STATUS-FULL CODE ADMISSION STATUS-patient will be admitted to inpatient status, expect at least a 2 night hospital stay for evaluation and management of problems as outlined above. At the time of this admission I do not reasonably expected evaluation and management of this problem will require more than a 96 hour hospital stay. DISPOSITION-anticipate discharge to home after the hospital stay. PRIMARY CARE PROVIDER-Dr. Ureña
[2017-04-08] MEDS: Warfarin 2.5 MG Tab PO SCH (13:29)
[2017-04-08] MEDS: Calcium Carbonate 500 MG Tab.Chew PO PRN ×3 (15:53→22:19)
[2017-04-08] MEDS: Albuterol 0.083% 2.5 MG/3 ML Neb Soln NEB PRN (16:45)
[2017-04-09] MEDS: Acetaminophen 325 MG Tab PO PRN (05:02)
[2017-04-09] MEDS: Albuterol 0.083% 2.5 MG/3 ML Neb Soln NEB PRN ×2 (07:55→22:24)
[2017-04-09] MEDS: metFORMIN 500 MG Tab PO SCH ×2 (07:56→17:25)
[2017-04-09] MEDS: Allopurinol 100 MG Tab PO SCH (08:13)
[2017-04-09] MEDS: Aspirin 81 MG Tab.Chew PO SCH (08:14)
[2017-04-09] MEDS: atorvaSTATin 20 MG Tab PO SCH (08:14)
[2017-04-09] MEDS: Metoprolol Succinate 50 MG Tab.ER PO SCH (10:51)
[2017-04-09] MEDS: Lisinopril 5 MG Tab PO SCH (10:51)
--- NOTE | 2017-04-09 11:25 | PCM.PN ---
- General Info Date of Service: 04/09/17 Functional Status: Reports: Pain Controlled, Urinating - Review of Systems General: Reports: Weakness. Denies: Fever, Chills Pulmonary: Reports: Shortness of Breath, Cough. Denies: Pleuritic Chest Pain, Sputum, Hemoptysis, Wheezing Cardiovascular: Reports: Dyspnea on Exertion, Edema. Denies: Chest Pain, Palpitations, Orthopnea, PND, Lightheadedness Gastrointestinal: Reports: No Symptoms Systems Review Comment:: Mr. Vazquez has been stable over the past 24 hours and with use of Bumex IV continuous infusion he is had an excellent diuresis. He is noted improvement in his shortness of breath as well as peripheral edema. Renal function has been stable and electrolytes also have remained within desired range. Vital signs have been good and he has remained afebrile. - Patient Data Vitals - Most Recent: Last Vital Signs Temp 97.7 F 04/09/17 07:55 Pulse 56 L 04/09/17 10:51 Resp 16 04/09/17 07:55 BP 99/50 L 04/09/17 10:51 Pulse Ox 92 L 04/09/17 07:55 Weight - Most Recent: 233 lb 8 oz I&O - Last 24 Hours: Intake & Output 04/08/17 04/09/17 04/09/17 22:59 06:59 14:59 Intake Total 700 620 Output Total 1625 2400 375 Balance -925 -2400 245 Lab Results Last 24 Hours: Laboratory Results - last 24 hr 04/09/17 04/09/17 Range/Units 04:30 04:30 PT 17.6 H (9.5-12.0) sec INR 1.61 H (0.80-1.20) Sodium 137 L (140-148) mmol/L Potassium 4.0 (3.6-5.2) mmol/L Chloride 101 (100-108) mmol/L Carbon Dioxide 31 (21-32) mmol/L Anion Gap 9.0 (5.0-14.0) mmol/L BUN 22 H (7-18) mg/dL Creatinine 0.9 (0.8-1.3) mg/dL Est Cr Clr Drug Dosing 85.21 mL/min Estimated GFR (MDRD) > 60 (>60) Glucose 121 H (74-106) mg/dL Calcium 8.5 (8.5-10.1) mg/dL Magnesium 2.1 (1.8-2.4) mg/dL Med Orders - Current: Current Medications Acetaminophen (Tylenol) 650 mg PO Q4H PRN PRN Reason: Pain (Mild 1-3)/fever Last Admin: 04/09/17 05:02 Dose: 650 mg Albuterol (Proventil Neb Soln) 2.5 mg NEB Q4H PRN PRN Reason: Shortness Of Breath/wheezing Last Admin: 04/09/17 07:55 Dose: 2.5 mg Allopurinol (Zyloprim) 100 mg PO DAILY [facility] Last Admin: 04/09/17 08:13 Dose: 100 mg Aspirin (Aspirin) 81 mg PO DAILY [facility] Last Admin: 04/09/17 08:14 Dose: 81 mg Atorvastatin Calcium (Lipitor) 40 mg PO DAILY [facility] Last Admin: 04/09/17 08:14 Dose: 40 mg Calcium Carbonate/Glycine (Tums) 1,000 mg PO Q2H PRN PRN Reason: Indigestion Last Admin: 04/08/17 22:19 Dose: 1,000 mg Dextrose (Glutose 15) 15 gm PO ONETIME PRN PRN Reason: Hypoglycemia Dextrose/Water (Dextrose 50% In Water) 50 ml IV ONETIME PRN PRN Reason: Hypoglycemia Bumetanide 10 mg/ Sodium (Chloride) 100 mls @ 10 mls/hr IV TITRATE EDY; 1 MG/HR PRN Reason: Protocol Stop: 04/11/17 12:01 Last Titration: 04/09/17 07:53 Dose: 1 mg/hr, 10 mls/hr Insulin Aspart (Novolog) 0 unit SUBCUT ASDIRECTED [facility] PRN Reason: Protocol Last Admin: 04/08/17 21:04 Dose: 1 unit Lisinopril (Prinivil) 5 mg PO DAILY [facility] Last Admin: 04/09/17 10:51 Dose: Not Given Magnesium Hydroxide (Milk Of Magnesia) 30 ml PO Q12H PRN PRN Reason: Constipation Last Admin: 04/07/17 14:21 Dose: 30 ml Metformin HCl (Glucophage) 1,000 mg PO BIDMEALS [facility] Last Admin: 04/09/17 07:56 Dose: 1,000 mg Metoprolol Succinate (Toprol Xl) 50 mg PO DAILY [facility] Last Admin: 04/09/17 10:51 Dose: Not Given Nitroglycerin (Nitrostat) 0.4 mg SL ASDIRECTED PRN PRN Reason: Chest Pain Ondansetron HCl (Zofran) 4 mg IV Q4H PRN PRN Reason: Nausea/Vomiting Oxycodone HCl (Oxycodone) 5 mg PO Q4H PRN PRN Reason: Pain (moderate 4-6) Polyethylene Glycol (Miralax) 17 gm PO DAILY PRN PRN Reason: Constipation Senna/Docusate Sodium (Senna Plus) 1 tab PO DAILY [facility] Last Admin: 04/09/17 08:13 Dose: 1 tab Sodium Chloride (Saline Flush) 10 ml FLUSH ASDIRECTED PRN PRN Reason: Keep Vein Open Warfarin Sodium (Coumadin) 5 mg PO MoFr@1300 [facility] Last Admin: 04/07/17 13:23 Dose: 5 mg Warfarin Sodium (Coumadin) 7.5 mg PO SuTuWeThSa@1300 [facility] Last Admin: 04/08/17 13:29 Dose: 7.5 mg Discontinued Medications Bumetanide (Bumex) 2 mg IVPUSH Q24H [facility] Last Admin: 04/06/17 17:39 Dose: 2 mg Bumetanide (Bumex) 2 mg IVPUSH Q12H [facility] Last Admin: 04/07/17 08:24 Dose: 2 mg Bumetanide (Bumex) 4 mg IVPUSH Q12H [facility] Last Admin: 04/08/17 04:34 Dose: 4 mg Sodium Chloride (Normal Saline) 80 mls @ 3 mls/sec IV ASDIRECTED [facility] Iopamidol (Isovue-370 (76%)) 100 ml IV . DIRECTED [facility] Metformin HCl (Glucophage) 1,000 mg PO BID [facility] Last Admin: 04/06/17 21:29 Dose: 1,000 mg Sodium Chloride (Saline Flush) 10 ml FLUSH ASDIRECTED PRN PRN Reason: Keep Vein Open - Exam Quality Assessment: DVT Prophylaxis General: Alert, Oriented, Cooperative, No Acute Distress Lungs: Normal Respiratory Effort, Decreased Breath Sounds, Rales. No: Crackles , Rhonchi, Rub, Wheezing Cardiovascular: Regular Rate, No Murmurs, Irregular Rhythm GI/Abdominal Exam: Normal Bowel Sounds, Soft, Non-Tender, No Distention Extremities: Pedal Edema Skin: Warm, Dry, Intact - Problem List Review Problem List Initiated/Reviewed/Updated: Yes - My Orders Last 24 Hours: My Active Orders 04/08/17 12:00 Bumetanide [Bumex] 10 mg Sodium Chloride 0.9% [Normal Saline] 60 ml IV TITRATE 04/08/17 15:29 Calcium Carbonate [Tums] 1,000 mg PO Q2H PRN 04/09/17 11:30 GLUCOSE POC LAB TO COLLECT [POC] QIDACANDBED 04/09/17 16:30 GLUCOSE POC LAB TO COLLECT [POC] QIDACANDBED 04/09/17 21:00 GLUCOSE POC LAB TO COLLECT [POC] QIDACANDBED 04/10/17 05:00 BASIC METABOLIC PANEL,BMP [CHEM] Timed INR,PT,PROTHROMBIN TIME [COAG] Timed 04/10/17 07:30 GLUCOSE POC LAB TO COLLECT [POC] QIDACANDBED 04/10/17 11:30 GLUCOSE POC LAB TO COLLECT [POC] QIDACANDBED 04/10/17 16:30 GLUCOSE POC LAB TO COLLECT [POC] QIDACANDBED 04/10/17 21:00 GLUCOSE POC LAB TO COLLECT [POC] QIDACANDBED 04/11/17 07:30 GLUCOSE POC LAB TO COLLECT [POC] QIDACANDBED 04/11/17 11:30 GLUCOSE POC LAB TO COLLECT [POC] QIDACANDBED 04/11/17 16:30 GLUCOSE POC LAB TO COLLECT [POC] QIDACANDBED 04/11/17 21:00 GLUCOSE POC LAB TO COLLECT [POC] QIDACANDBED 04/12/17 07:30 GLUCOSE POC LAB TO COLLECT [POC] QIDACANDBED 04/12/17 11:30 GLUCOSE POC LAB TO COLLECT [POC] QIDACANDBED 04/12/17 16:30 GLUCOSE POC LAB TO COLLECT [POC] QIDACANDBED 04/12/17 21:00 GLUCOSE POC LAB TO COLLECT [POC] QIDACANDBED 04/13/17 07:30 GLUCOSE POC LAB TO COLLECT [POC] QIDACANDBED 04/13/17 11:30 GLUCOSE POC LAB TO COLLECT [POC] QIDACANDBED 04/13/17 16:30 GLUCOSE POC LAB TO COLLECT [POC] QIDACANDBED 04/13/17 21:00 GLUCOSE POC LAB TO COLLECT [POC] QIDACANDBED 04/14/17 07:30 GLUCOSE POC LAB TO COLLECT [POC] QIDACANDBED 04/14/17 11:30 GLUCOSE POC LAB TO COLLECT [POC] QIDACANDBED 04/14/17 16:30 GLUCOSE POC LAB TO COLLECT [POC] QIDACANDBED 04/14/17 21:00 GLUCOSE POC LAB TO COLLECT [POC] QIDACANDBED 04/15/17 07:30 GLUCOSE POC LAB TO COLLECT [POC] QIDACANDBED 04/15/17 11:30 GLUCOSE POC LAB TO COLLECT [POC] QIDACANDBED 04/15/17 16:30 GLUCOSE POC LAB TO COLLECT [POC] QIDACANDBED 04/15/17 21:00 GLUCOSE POC LAB TO COLLECT [POC] QIDACANDBED 04/16/17 07:30 GLUCOSE POC LAB TO COLLECT [POC] QIDACANDBED 04/16/17 11:30 GLUCOSE POC LAB TO COLLECT [POC] QIDACANDBED 04/16/17 16:30 GLUCOSE POC LAB TO COLLECT [POC] QIDACANDBED 04/16/17 21:00 GLUCOSE POC LAB TO COLLECT [POC] QIDACANDBED 04/17/17 07:30 GLUCOSE POC LAB TO COLLECT [POC] QIDACANDBED 04/17/17 11:30 GLUCOSE POC LAB TO COLLECT [POC] QIDACANDBED 04/17/17 16:30 GLUCOSE POC LAB TO COLLECT [POC] QIDACANDBED - Plan Plan:: ASSESSMENT AND PLAN CONGESTIVE HEART excellent diuresis over the past 24 hours with improvement in peripheral edema and shortness of breath -Bumex 1 mg per hour continuous infusion -2 g sodium diet -Echocardiogram tomorrow -Lisinopril 5 mg by mouth daily -Continue outpatient medications including metoprolol CORONARY ARTERY DISEASE-currently asymptomatic, troponin normal -Continue outpatient medical regimen TYPE 2 DIABETES MELLITUS -Hold Glucotrol -Metformin continue 1 g twice daily -4 times a day glucometers -Low-dose sliding scale NovoLog ATRIAL FIBRILLATION WITH CONTROLLED VENTRICULAR RESPONSE-INR remains subtherapeutic, will receive warfarin 7.5 mg today -Continue current medical therapy -Continue anticoagulation with warfarin -INR in a.m. MAINTENANCE ISSUES -DVT prophylaxis;current therapy with warfarin should provide adequate DVT prophylaxis -GI prophylaxis;not indicated -Emmanuel catheter;not indicated -Nutrition;2 g sodium, and system carb diet -Nicotine dependence;not required CODE STATUS-FULL CODE ADMISSION STATUS-patient will be admitted to inpatient status, expect at least a 2 night hospital stay for evaluation and management of problems as outlined above. At the time of this admission I do not reasonably expected evaluation and management of this problem will require more than a 96 hour hospital stay. DISPOSITION-anticipate discharge to home after the hospital stay. PRIMARY CARE PROVIDER-Dr. Ureña
[2017-04-09] MEDS: Insulin Aspart 100 Units/ML 3 ML Pen SUBCUT SCH ×3 (11:42→22:14)
[2017-04-09] MEDS: Warfarin 2.5 MG Tab PO SCH (12:35)
[2017-04-09] MEDS: Calcium Carbonate 500 MG Tab.Chew PO PRN (19:51)
[2017-04-10] MEDS: metFORMIN 500 MG Tab PO SCH ×2 (07:08→18:01)
[2017-04-10] MEDS ORDERED: Potassium Chloride 20 MEQ Tab.ER PO ONE (09:00)
[2017-04-10] MEDS: Aspirin 81 MG Tab.Chew PO SCH (09:11)
[2017-04-10] MEDS: atorvaSTATin 20 MG Tab PO SCH (09:13)
[2017-04-10] MEDS: Allopurinol 100 MG Tab PO SCH (09:14)
[2017-04-10] MEDS: Insulin Aspart 100 Units/ML 3 ML Pen SUBCUT SCH ×2 (09:18→16:55)
[2017-04-10] MEDS: Lisinopril 5 MG Tab PO SCH (09:22)
[2017-04-10] MEDS: Metoprolol Succinate 50 MG Tab.ER PO SCH (09:23)
--- NOTE | 2017-04-10 09:59 | PCM.PN ---
- General Info Date of Service: 04/10/17 Functional Status: Reports: Tolerating Diet - Review of Systems General: Reports: Weakness Pulmonary: Reports: Hemoptysis Cardiovascular: Reports: Edema Gastrointestinal: Denies: Abdominal Pain Systems Review Comment:: No acute events overnight. Still has mild shortness of breath and occasional pink tinged to his white sputum. No complaints of chest pain or abdominal pain. Lower extremity edema is a little better. Good urine output again with the Bumex drip. He has not had any fevers. Kidney function has remained stable with diuresis. - Patient Data Vitals - Most Recent: Last Vital Signs Temp 37.1 C 04/10/17 06:56 Pulse 61 04/10/17 09:23 Resp 16 04/10/17 06:56 BP 108/56 L 04/10/17 09:23 Pulse Ox 93 L 04/10/17 06:56 Weight - Most Recent: 105.687 kg I&O - Last 24 Hours: Intake & Output 04/09/17 04/10/17 04/10/17 22:59 06:59 14:59 Intake Total 651 51 120 Output Total 1400 750 650 Balance -729 -699 -530 Lab Results Last 24 Hours: Laboratory Results - last 24 hr 04/10/17 04/10/17 Range/Units 04:37 04:37 PT 18.2 H (9.5-12.0) sec INR 1.67 H (0.80-1.20) Sodium 137 L (140-148) mmol/L Potassium 3.6 (3.6-5.2) mmol/L Chloride 101 (100-108) mmol/L Carbon Dioxide 31 (21-32) mmol/L Anion Gap 8.6 (5.0-14.0) mmol/L BUN 24 H (7-18) mg/dL Creatinine 1.0 (0.8-1.3) mg/dL Est Cr Clr Drug Dosing 76.69 mL/min Estimated GFR (MDRD) > 60 (>60) Glucose 135 H (74-106) mg/dL Calcium 8.6 (8.5-10.1) mg/dL Med Orders - Current: Current Medications Acetaminophen (Tylenol) 650 mg PO Q4H PRN PRN Reason: Pain (Mild 1-3)/fever Last Admin: 04/09/17 05:02 Dose: 650 mg Albuterol (Proventil Neb Soln) 2.5 mg NEB Q4H PRN PRN Reason: Shortness Of Breath/wheezing Last Admin: 04/09/17 22:24 Dose: 2.5 mg Allopurinol (Zyloprim) 100 mg PO DAILY [facility] Last Admin: 04/10/17 09:14 Dose: 100 mg Aspirin (Aspirin) 81 mg PO DAILY [facility] Last Admin: 04/10/17 09:11 Dose: 81 mg Atorvastatin Calcium (Lipitor) 40 mg PO DAILY [facility] Last Admin: 04/10/17 09:13 Dose: 40 mg Calcium Carbonate/Glycine (Tums) 1,000 mg PO Q2H PRN PRN Reason: Indigestion Last Admin: 04/09/17 19:51 Dose: 1,000 mg Dextrose (Glutose 15) 15 gm PO ONETIME PRN PRN Reason: Hypoglycemia Dextrose/Water (Dextrose 50% In Water) 50 ml IV ONETIME PRN PRN Reason: Hypoglycemia Bumetanide 10 mg/ Sodium (Chloride) 100 mls @ 10 mls/hr IV TITRATE EDY; 1 MG/HR PRN Reason: Protocol Stop: 04/11/17 12:01 Last Admin: 04/10/17 06:54 Dose: 1 mg/hr, 10 mls/hr Insulin Aspart (Novolog) 0 unit SUBCUT ASDIRECTED [facility] PRN Reason: Protocol Last Admin: 04/10/17 09:18 Dose: 1 unit Lisinopril (Prinivil) 5 mg PO DAILY [facility] Last Admin: 04/10/17 09:22 Dose: Not Given Magnesium Hydroxide (Milk Of Magnesia) 30 ml PO Q12H PRN PRN Reason: Constipation Last Admin: 04/07/17 14:21 Dose: 30 ml Metformin HCl (Glucophage) 1,000 mg PO BIDMEALS [facility] Last Admin: 04/10/17 07:08 Dose: 1,000 mg Metoprolol Succinate (Toprol Xl) 50 mg PO DAILY [facility] Last Admin: 04/10/17 09:23 Dose: 50 mg Nitroglycerin (Nitrostat) 0.4 mg SL ASDIRECTED PRN PRN Reason: Chest Pain Ondansetron HCl (Zofran) 4 mg IV Q4H PRN PRN Reason: Nausea/Vomiting Oxycodone HCl (Oxycodone) 5 mg PO Q4H PRN PRN Reason: Pain (moderate 4-6) Polyethylene Glycol (Miralax) 17 gm PO DAILY PRN PRN Reason: Constipation Senna/Docusate Sodium (Senna Plus) 1 tab PO DAILY [facility] Last Admin: 04/10/17 09:13 Dose: 1 tab Sodium Chloride (Saline Flush) 10 ml FLUSH ASDIRECTED PRN PRN Reason: Keep Vein Open Warfarin Sodium (Coumadin) 7.5 mg PO DAILY@1300 [facility] Discontinued Medications Bumetanide (Bumex) 2 mg IVPUSH Q24H [facility] Last Admin: 04/06/17 17:39 Dose: 2 mg Bumetanide (Bumex) 2 mg IVPUSH Q12H [facility] Last Admin: 04/07/17 08:24 Dose: 2 mg Bumetanide (Bumex) 4 mg IVPUSH Q12H [facility] Last Admin: 04/08/17 04:34 Dose: 4 mg Sodium Chloride (Normal Saline) 80 mls @ 3 mls/sec IV ASDIRECTED [facility] Iopamidol (Isovue-370 (76%)) 100 ml IV . DIRECTED [facility] Metformin HCl (Glucophage) 1,000 mg PO BID [facility] Last Admin: 04/06/17 21:29 Dose: 1,000 mg Potassium Chloride (Klor-Con M20) 40 meq PO ONETIME ONE Stop: 04/10/17 09:01 Last Admin: 04/10/17 09:12 Dose: 40 meq Sodium Chloride (Saline Flush) 10 ml FLUSH ASDIRECTED PRN PRN Reason: Keep Vein Open Warfarin Sodium (Coumadin) 5 mg PO MoFr@1300 [facility] Last Admin: 04/07/17 13:23 Dose: 5 mg Warfarin Sodium (Coumadin) 7.5 mg PO SuTuWeThSa@1300 [facility] Last Admin: 04/09/17 12:35 Dose: 7.5 mg - Exam Quality Assessment: No: Supplemental Oxygen General: Alert, Oriented, Cooperative, No Acute Distress Neck: Supple Lungs: Clear to Auscultation, Normal Respiratory Effort, Decreased Breath Sounds (mild left base) Cardiovascular: Regular Rate, Irregular Rhythm GI/Abdominal Exam: Soft, No Distention Extremities: Other (pitting edema from feet to the groin, especially dependent areas). No: Increased Warmth Skin: Warm, Dry, Other (left lower leg with two healing stasis ulcers, one is 2x2 cm and the other is 1x1.5 cm. No drainage) Psy/Mental Status: Alert, Normal Affect - Problem List Review Problem List Initiated/Reviewed/Updated: Yes - My Orders Last 24 Hours: My Active Orders 04/10/17 09:53 BREANNE Hose [Antiembolic Hose] [OM.PC] Routine 04/10/17 09:56 Ambulate [RC] QID 04/10/17 13:00 Warfarin [Coumadin] 7.5 mg PO DAILY@1300 04/11/17 05:00 BASIC METABOLIC PANEL,BMP [CHEM] Timed CBC W/O DIFF,HEMOGRAM [HEME] Timed (1) INR,PT,PROTHROMBIN TIME [COAG] Timed - Plan Plan:: ASSESSMENT AND PLAN CONGESTIVE HEART FAILURE - excellent diuresis with bumetanide infusion. Kidney function tolerating the diuresis so far. Still has a fair amount of lower extremity edema. -Bumex 1 mg per hour continuous infusion -2 g sodium diet -Echocardiogram pending -Hold lisinopril with low blood pressure -continue beta kerry CORONARY ARTERY DISEASE - currently asymptomatic. -Continue outpatient medical regimen TYPE 2 DIABETES MELLITUS -Hold Glucotrol -Metformin continue 1 g twice daily -4 times a day glucometers -Low-dose sliding scale NovoLog ATRIAL FIBRILLATION WITH CONTROLLED VENTRICULAR RESPONSE - INR remains subtherapeutic, will receive warfarin 7.5 mg daily. -Continue current medical therapy -Continue anticoagulation with warfarin -INR in a.m. MAINTENANCE ISSUES -DVT prophylaxis;current therapy with warfarin should provide adequate DVT prophylaxis -GI prophylaxis;not indicated -Emmanuel catheter;not indicated -Nutrition;2 g sodium, and system carb diet DISPOSITION - anticipate discharge to home after the hospital stay. Pako Wilkerson M.D.
[2017-04-10] MEDS: Warfarin 2.5 MG Tab PO SCH (13:08)
[2017-04-10] MEDS: Calcium Carbonate 500 MG Tab.Chew PO PRN (21:24)
[2017-04-10] MEDS: Acetaminophen 325 MG Tab PO PRN (22:43)
[2017-04-11] MEDS: metFORMIN 500 MG Tab PO SCH ×2 (07:33→16:32)
[2017-04-11] MEDS: Insulin Aspart 100 Units/ML 3 ML Pen SUBCUT SCH ×3 (07:39→21:27)
[2017-04-11] MEDS: atorvaSTATin 20 MG Tab PO SCH (08:42)
[2017-04-11] MEDS: Aspirin 81 MG Tab.Chew PO SCH (08:42)
[2017-04-11] MEDS: Metoprolol Succinate 50 MG Tab.ER PO SCH (08:50)
[2017-04-11] MEDS: Allopurinol 100 MG Tab PO SCH (08:50)
[2017-04-11] MEDS: Potassium Chloride 20 MEQ Tab.ER PO SCH ×2 (09:00→16:31)
--- NOTE | 2017-04-11 09:52 | PCM.PN ---
- General Info Date of Service: 04/11/17 Functional Status: Reports: Pain Controlled, Tolerating Diet - Review of Systems General: Reports: Weakness Pulmonary: Reports: Hemoptysis Musculoskeletal: Reports: Leg Pain Systems Review Comment:: no acute events overnight. Ongoing excellent response to bumetanide infusion. Lower extremity edema is improving each day. Kidney function has remained stable. He did have an episode of hemoptysis again this morning but none since that time. He feels less short of breath each day. Does endorse pain over the mid and distal left femur. This pain is worse with any activity. He is worried that some of his hardware from previous surgeries is loose. - Patient Data Vitals - Most Recent: Last Vital Signs Temp 35.5 C 04/11/17 07:18 Pulse 60 04/11/17 08:50 Resp 16 04/11/17 07:18 BP 100/50 L 04/11/17 08:50 Pulse Ox 95 04/11/17 07:18 Weight - Most Recent: 101.321 kg I&O - Last 24 Hours: Intake & Output 04/10/17 04/11/17 04/11/17 22:59 06:59 14:59 Intake Total 901 181 480 Output Total 2300 2300 325 Balance -1399 -2119 155 Lab Results Last 24 Hours: Laboratory Results - last 24 hr 04/11/17 04/11/17 04/11/17 Range/Units 04:45 04:45 04:45 WBC 4.4 L (4.5-11.0) K/uL RBC 3.53 L (4.30-5.90) M/uL Hgb 11.0 L (12.0-15.0) g/dL Hct 33.6 L (40.0-54.0) % MCV 95 (80-98) fL MCH 31 (27-31) pg MCHC 33 (32-36) % Plt Count 170 (150-400) K/uL PT 19.4 H (9.5-12.0) sec INR 1.77 H (0.80-1.20) Sodium 137 L (140-148) mmol/L Potassium 3.6 (3.6-5.2) mmol/L Chloride 101 (100-108) mmol/L Carbon Dioxide 32 (21-32) mmol/L Anion Gap 7.6 (5.0-14.0) mmol/L BUN 23 H (7-18) mg/dL Creatinine 1.0 (0.8-1.3) mg/dL Est Cr Clr Drug Dosing 76.69 mL/min Estimated GFR (MDRD) > 60 (>60) Glucose 121 H (74-106) mg/dL Calcium 8.7 (8.5-10.1) mg/dL Med Orders - Current: Current Medications Acetaminophen (Tylenol) 650 mg PO Q4H PRN PRN Reason: Pain (Mild 1-3)/fever Last Admin: 04/10/17 22:43 Dose: 650 mg Albuterol (Proventil Neb Soln) 2.5 mg NEB Q4H PRN PRN Reason: Shortness Of Breath/wheezing Last Admin: 04/09/17 22:24 Dose: 2.5 mg Allopurinol (Zyloprim) 100 mg PO DAILY [facility] Last Admin: 04/11/17 08:50 Dose: 100 mg Aspirin (Aspirin) 81 mg PO DAILY [facility] Last Admin: 04/11/17 08:42 Dose: 81 mg Atorvastatin Calcium (Lipitor) 40 mg PO DAILY [facility] Last Admin: 04/11/17 08:42 Dose: 40 mg Bumetanide (Bumex) 2 mg PO DAILY [facility] Calcium Carbonate/Glycine (Tums) 1,000 mg PO Q2H PRN PRN Reason: Indigestion Last Admin: 04/10/17 21:24 Dose: 1,000 mg Dextrose (Glutose 15) 15 gm PO ONETIME PRN PRN Reason: Hypoglycemia Dextrose/Water (Dextrose 50% In Water) 50 ml IV ONETIME PRN PRN Reason: Hypoglycemia Bumetanide 10 mg/ Sodium (Chloride) 100 mls @ 10 mls/hr IV TITRATE EDY; 1 MG/HR PRN Reason: Protocol Stop: 04/12/17 04:00 Last Admin: 04/11/17 05:04 Dose: 1 mg/hr, 10 mls/hr Insulin Aspart (Novolog) 0 unit SUBCUT ASDIRECTED [facility] PRN Reason: Protocol Last Admin: 04/11/17 07:39 Dose: 1 unit Lisinopril (Prinivil) 5 mg PO DAILY [facility] Last Admin: 04/10/17 09:22 Dose: Not Given Magnesium Hydroxide (Milk Of Magnesia) 30 ml PO Q12H PRN PRN Reason: Constipation Last Admin: 04/07/17 14:21 Dose: 30 ml Metformin HCl (Glucophage) 1,000 mg PO BIDMEALS [facility] Last Admin: 04/11/17 07:33 Dose: 1,000 mg Metoprolol Succinate (Toprol Xl) 50 mg PO DAILY [facility] Last Admin: 04/11/17 08:50 Dose: 50 mg Nitroglycerin (Nitrostat) 0.4 mg SL ASDIRECTED PRN PRN Reason: Chest Pain Ondansetron HCl (Zofran) 4 mg IV Q4H PRN PRN Reason: Nausea/Vomiting Oxycodone HCl (Oxycodone) 5 mg PO Q4H PRN PRN Reason: Pain (moderate 4-6) Polyethylene Glycol (Miralax) 17 gm PO DAILY PRN PRN Reason: Constipation Potassium Chloride (Klor-Con M20) 40 meq PO BIDMEALS [facility] Last Admin: 04/11/17 09:00 Dose: 40 meq Senna/Docusate Sodium (Senna Plus) 1 tab PO DAILY [facility] Last Admin: 04/11/17 08:49 Dose: Not Given Sodium Chloride (Saline Flush) 10 ml FLUSH ASDIRECTED PRN PRN Reason: Keep Vein Open Warfarin Sodium (Coumadin) 7.5 mg PO DAILY@1300 [facility] Last Admin: 04/10/17 13:08 Dose: 7.5 mg Discontinued Medications Bumetanide (Bumex) 2 mg IVPUSH Q24H [facility] Last Admin: 04/06/17 17:39 Dose: 2 mg Bumetanide (Bumex) 2 mg IVPUSH Q12H [facility] Last Admin: 04/07/17 08:24 Dose: 2 mg Bumetanide (Bumex) 4 mg IVPUSH Q12H [facility] Last Admin: 04/08/17 04:34 Dose: 4 mg Sodium Chloride (Normal Saline) 80 mls @ 3 mls/sec IV ASDIRECTED [facility] Iopamidol (Isovue-370 (76%)) 100 ml IV . DIRECTED [facility] Metformin HCl (Glucophage) 1,000 mg PO BID [facility] Last Admin: 04/06/17 21:29 Dose: 1,000 mg Potassium Chloride (Klor-Con M20) 40 meq PO ONETIME ONE Stop: 04/10/17 09:01 Last Admin: 04/10/17 09:12 Dose: 40 meq Sodium Chloride (Saline Flush) 10 ml FLUSH ASDIRECTED PRN PRN Reason: Keep Vein Open Warfarin Sodium (Coumadin) 5 mg PO MoFr@1300 [facility] Last Admin: 04/07/17 13:23 Dose: 5 mg Warfarin Sodium (Coumadin) 7.5 mg PO SuTuWeThSa@1300 [facility] Last Admin: 04/09/17 12:35 Dose: 7.5 mg - Exam Quality Assessment: No: Supplemental Oxygen General: Alert, Oriented, Cooperative, No Acute Distress Neck: Supple Lungs: Clear to Auscultation, Normal Respiratory Effort. No: Rales Cardiovascular: Regular Rate, Regular Rhythm, Murmurs GI/Abdominal Exam: Soft, No Distention Back Exam: Normal Inspection Extremities: Pedal Edema (pitting edema of lower legs and dependent areas of both thighs (much improved)) Skin: Warm, Dry Psy/Mental Status: Alert, Normal Affect - Problem List Review Problem List Initiated/Reviewed/Updated: Yes - My Orders Last 24 Hours: My Active Orders 04/10/17 09:53 BREANNE Hose [Antiembolic Hose] [OM.PC] Routine 04/10/17 09:56 Ambulate [RC] QID 04/10/17 13:00 Warfarin [Coumadin] 7.5 mg PO DAILY@1300 04/11/17 09:00 Potassium Chloride [Klor-Con M20] 40 meq PO BIDMEALS 04/12/17 05:00 BASIC METABOLIC PANEL,BMP [CHEM] Timed CBC W/O DIFF,HEMOGRAM [HEME] Timed (1) 04/12/17 09:00 Bumetanide [Bumex] 2 mg PO DAILY - Plan Plan:: ASSESSMENT AND PLAN ACUTE SYSTOLIC CONGESTIVE HEART FAILURE - excellent diuresis with bumetanide infusion. Kidney function remained stable. Echocardiogram showed at least moderately reduced left ventricular function as well as severe mitral regurgitation, mild to moderate aortic regurgitation and moderately severe tricuspid regurgitation. He is doing very well with the bumetanide infusion.blood pressure still on the low side of normal. -Bumex 1 mg per hour continuous infusion until 4 AM tomorrow -Transition to oral diuretics tomorrow morning -2 g sodium diet -Hold lisinopril with low blood pressure -continue beta kerry LEFT THIGH PAIN - seems to be muscular in nature but patient is requesting an x- ray to rule out hardware loosening or fracture. -X-ray of the left femur -Pain control CORONARY ARTERY DISEASE - currently asymptomatic. -Continue outpatient medical regimen TYPE 2 DIABETES MELLITUS -Hold Glucotrol -Metformin continue 1 g twice daily -4 times a day glucometers -Low-dose sliding scale NovoLog ATRIAL FIBRILLATION WITH CONTROLLED VENTRICULAR RESPONSE - INR remains subtherapeutic, is receiving warfarin 7.5 mg daily. -Continue current medical therapy -Continue anticoagulation with warfarin -INR in a.m. MAINTENANCE ISSUES -DVT prophylaxis;current therapy with warfarin should provide adequate DVT prophylaxis -GI prophylaxis;not indicated -Emmanuel catheter;not indicated -Nutrition;2 g sodium, and controlled carb diet DISPOSITION - anticipate discharge to home after the hospital stay, possibly in the next day or 2 Pako Wilkerson M.D.
--- NOTE | 2017-04-11 11:06 | CR ---
Advanced degenerative changes left hip. Left mid femoral shaft is intact.
[2017-04-11] MEDS: Warfarin 2.5 MG Tab PO SCH (12:23)
[2017-04-11] MEDS: Acetaminophen 325 MG Tab PO PRN ×2 (16:34→22:23)
[2017-04-11] MEDS: Calcium Carbonate 500 MG Tab.Chew PO PRN (22:23)
[2017-04-12] MEDS: Potassium Chloride 20 MEQ Tab.ER PO SCH ×2 (07:14→17:04)
[2017-04-12] MEDS: metFORMIN 500 MG Tab PO SCH ×2 (07:14→17:04)
[2017-04-12] MEDS: Aspirin 81 MG Tab.Chew PO SCH (08:28)
[2017-04-12] MEDS: atorvaSTATin 20 MG Tab PO SCH (08:28)
[2017-04-12] MEDS: Allopurinol 100 MG Tab PO SCH (08:29)
[2017-04-12] MEDS: Metoprolol Succinate 50 MG Tab.ER PO SCH (08:31)
[2017-04-12] MEDS: Lisinopril 5 MG Tab PO SCH (08:32)
[2017-04-12] MEDS: Insulin Aspart 100 Units/ML 3 ML Pen SUBCUT SCH ×2 (08:34→17:04)
[2017-04-12] MEDS ORDERED: Bumetanide 1 MG Tab PO SCH (09:00)
[2017-04-12] MEDS: Warfarin 2.5 MG Tab PO SCH (13:31)
--- NOTE | 2017-04-12 14:25 | PCM.PN ---
- General Info Date of Service: 04/12/17 Functional Status: Reports: Pain Controlled, Tolerating Diet, Ambulating - Review of Systems General: Reports: Weakness Pulmonary: Denies: Shortness of Breath Cardiovascular: Reports: Edema Systems Review Comment:: no acute events overnight. Seems to have tolerated the transition from IV to oral bumetanide without difficulty. Lower extremity edema continues to improve but has not resolved. No complaints of shortness of breath. Strength is been improving daily. He does still have mild hemoptysis but this seems to be improving as well. No complaints of chest pain. No fevers. - Patient Data Vitals - Most Recent: Last Vital Signs Temp 36.4 C 04/12/17 12:20 Pulse 60 04/12/17 12:20 Resp 16 04/12/17 12:20 BP 113/63 04/12/17 12:20 Pulse Ox 96 04/12/17 12:20 Weight - Most Recent: 98.458 kg I&O - Last 24 Hours: Intake & Output 04/11/17 04/12/17 04/12/17 22:59 06:59 14:59 Intake Total 0977 740 6926 Output Total 1400 1525 900 Balance -223 -1174 220 Lab Results Last 24 Hours: Laboratory Results - last 24 hr 04/12/17 04/12/17 Range/Units 05:43 05:43 WBC 4.9 (4.5-11.0) K/uL RBC 3.57 L (4.30-5.90) M/uL Hgb 10.7 L (12.0-15.0) g/dL Hct 33.8 L (40.0-54.0) % MCV 95 (80-98) fL MCH 30 (27-31) pg MCHC 32 (32-36) % Plt Count 180 (150-400) K/uL Sodium 139 L (140-148) mmol/L Potassium 3.7 (3.6-5.2) mmol/L Chloride 101 (100-108) mmol/L Carbon Dioxide 32 (21-32) mmol/L Anion Gap 9.7 (5.0-14.0) mmol/L BUN 26 H (7-18) mg/dL Creatinine 1.0 (0.8-1.3) mg/dL Est Cr Clr Drug Dosing 76.69 mL/min Estimated GFR (MDRD) > 60 (>60) Glucose 117 H (74-106) mg/dL Calcium 8.8 (8.5-10.1) mg/dL Med Orders - Current: Current Medications Acetaminophen (Tylenol) 650 mg PO Q4H PRN PRN Reason: Pain (Mild 1-3)/fever Last Admin: 04/11/17 22:23 Dose: 650 mg Albuterol (Proventil Neb Soln) 2.5 mg NEB Q4H PRN PRN Reason: Shortness Of Breath/wheezing Last Admin: 04/09/17 22:24 Dose: 2.5 mg Allopurinol (Zyloprim) 100 mg PO DAILY [facility] Last Admin: 04/12/17 08:29 Dose: 100 mg Aspirin (Aspirin) 81 mg PO DAILY [facility] Last Admin: 04/12/17 08:28 Dose: 81 mg Atorvastatin Calcium (Lipitor) 40 mg PO DAILY [facility] Last Admin: 04/12/17 08:28 Dose: 40 mg Bumetanide (Bumex) 2 mg PO DAILY [facility] Last Admin: 04/12/17 08:28 Dose: 2 mg Calcium Carbonate/Glycine (Tums) 1,000 mg PO Q2H PRN PRN Reason: Indigestion Last Admin: 04/11/17 22:23 Dose: 1,000 mg Dextrose (Glutose 15) 15 gm PO ONETIME PRN PRN Reason: Hypoglycemia Dextrose/Water (Dextrose 50% In Water) 50 ml IV ONETIME PRN PRN Reason: Hypoglycemia Insulin Aspart (Novolog) 0 unit SUBCUT ASDIRECTED [facility] PRN Reason: Protocol Last Admin: 04/12/17 08:34 Dose: 1 unit Lisinopril (Prinivil) 5 mg PO DAILY [facility] Last Admin: 04/12/17 08:32 Dose: 5 mg Magnesium Hydroxide (Milk Of Magnesia) 30 ml PO Q12H PRN PRN Reason: Constipation Last Admin: 04/07/17 14:21 Dose: 30 ml Metformin HCl (Glucophage) 1,000 mg PO BIDMEALS [facility] Last Admin: 04/12/17 07:14 Dose: 1,000 mg Metoprolol Succinate (Toprol Xl) 50 mg PO DAILY [facility] Last Admin: 04/12/17 08:31 Dose: 50 mg Nitroglycerin (Nitrostat) 0.4 mg SL ASDIRECTED PRN PRN Reason: Chest Pain Ondansetron HCl (Zofran) 4 mg IV Q4H PRN PRN Reason: Nausea/Vomiting Oxycodone HCl (Oxycodone) 5 mg PO Q4H PRN PRN Reason: Pain (moderate 4-6) Polyethylene Glycol (Miralax) 17 gm PO DAILY PRN PRN Reason: Constipation Potassium Chloride (Klor-Con M20) 40 meq PO BIDMEALS [facility] Last Admin: 04/12/17 07:14 Dose: 40 meq Senna/Docusate Sodium (Senna Plus) 1 tab PO DAILY [facility] Last Admin: 04/12/17 08:29 Dose: 1 tab Sodium Chloride (Saline Flush) 10 ml FLUSH ASDIRECTED PRN PRN Reason: Keep Vein Open Warfarin Sodium (Coumadin) 7.5 mg PO DAILY@1300 [facility] Last Admin: 04/12/17 13:31 Dose: 7.5 mg Discontinued Medications Bumetanide (Bumex) 2 mg IVPUSH Q24H [facility] Last Admin: 04/06/17 17:39 Dose: 2 mg Bumetanide (Bumex) 2 mg IVPUSH Q12H [facility] Last Admin: 04/07/17 08:24 Dose: 2 mg Bumetanide (Bumex) 4 mg IVPUSH Q12H [facility] Last Admin: 04/08/17 04:34 Dose: 4 mg Sodium Chloride (Normal Saline) 80 mls @ 3 mls/sec IV ASDIRECTED [facility] Bumetanide 10 mg/ Sodium (Chloride) 100 mls @ 10 mls/hr IV TITRATE EDY; 1 MG/HR PRN Reason: Protocol Stop: 04/12/17 04:00 Last Admin: 04/12/17 00:07 Dose: 1 mg/hr, 10 mls/hr Iopamidol (Isovue-370 (76%)) 100 ml IV . DIRECTED [facility] Metformin HCl (Glucophage) 1,000 mg PO BID [facility] Last Admin: 04/06/17 21:29 Dose: 1,000 mg Potassium Chloride (Klor-Con M20) 40 meq PO ONETIME ONE Stop: 04/10/17 09:01 Last Admin: 04/10/17 09:12 Dose: 40 meq Sodium Chloride (Saline Flush) 10 ml FLUSH ASDIRECTED PRN PRN Reason: Keep Vein Open Warfarin Sodium (Coumadin) 5 mg PO MoFr@1300 [facility] Last Admin: 04/07/17 13:23 Dose: 5 mg Warfarin Sodium (Coumadin) 7.5 mg PO SuTuWeThSa@1300 [facility] Last Admin: 04/09/17 12:35 Dose: 7.5 mg - Exam Quality Assessment: No: Supplemental Oxygen General: Alert, Oriented, Cooperative, No Acute Distress Neck: Supple Lungs: Clear to Auscultation, Normal Respiratory Effort Cardiovascular: Regular Rate, Regular Rhythm, Murmurs GI/Abdominal Exam: Soft, No Distention Extremities: Other (pitting edema both legs anton dependent thighs. Minimal lower leg swelling with TEDS on ). No: Increased Warmth Skin: Warm, Dry Psy/Mental Status: Alert, Normal Affect - Problem List Review Problem List Initiated/Reviewed/Updated: Yes - My Orders Last 24 Hours: My Active Orders 04/12/17 09:00 Bumetanide [Bumex] 2 mg PO DAILY 04/13/17 05:00 BASIC METABOLIC PANEL,BMP [CHEM] Timed INR,PT,PROTHROMBIN TIME [COAG] Timed - Plan Plan:: ASSESSMENT AND PLAN ACUTE SYSTOLIC CONGESTIVE HEART FAILURE - excellent diuresis with bumetanide infusion and he has been transitioned to oral medications. Still some edema but clinically improving. He was starting to develop mild contraction alkalosis suggesting that we may be at the end of our IV diuresis. Clinically he has been improving with diuresis. -Transition to oral bumetanide this morning -2 g sodium diet -Hold lisinopril with low blood pressure -continue beta kerry LEFT THIGH PAIN - seems to be muscular and x-ray was negative. -Pain control CORONARY ARTERY DISEASE - currently asymptomatic. -Continue outpatient medical regimen TYPE 2 DIABETES MELLITUS -Hold Glucotrol -Metformin continue 1 g twice daily -4 times a day glucometers -Low-dose sliding scale NovoLog ATRIAL FIBRILLATION WITH CONTROLLED VENTRICULAR RESPONSE - no bleeding issues. -Continue current medical therapy -Continue anticoagulation with warfarin -INR in a.m. MAINTENANCE ISSUES -DVT prophylaxis;current therapy with warfarin should provide adequate DVT prophylaxis -GI prophylaxis;not indicated -Emmanuel catheter;not indicated -Nutrition;2 g sodium, and controlled carb diet DISPOSITION - anticipate discharge to home after the hospital stay, possibly tomorrow if stable overnight Pako Wilkerson M.D.
[2017-04-12] MEDS: Calcium Carbonate 500 MG Tab.Chew PO PRN (21:11)
[2017-04-13] MEDS: metFORMIN 500 MG Tab PO SCH (08:32)
[2017-04-13] MEDS: atorvaSTATin 20 MG Tab PO SCH (08:33)
[2017-04-13] MEDS: Aspirin 81 MG Tab.Chew PO SCH (08:33)
[2017-04-13] MEDS: Potassium Chloride 20 MEQ Tab.ER PO SCH (08:33)
[2017-04-13] MEDS: Allopurinol 100 MG Tab PO SCH (08:35)
[2017-04-13] MEDS: Lisinopril 5 MG Tab PO SCH (08:37)
[2017-04-13] MEDS: Metoprolol Succinate 50 MG Tab.ER PO SCH (08:37)
[2017-04-13] MEDS ORDERED: Bumetanide 1 MG Tab PO SCH (09:00)
[2017-04-13] MEDS ORDERED: Warfarin 5 MG Tab PO ONE (13:00)
--- NOTE | 2017-04-13 15:03 | PCM.DCSUM1 ---
Discharge Summary - Hospital Course Brief History: 77-year-old male with history of systolic congestive heart failure and chronic atrial fibrillation who presented with progressive shortness of breath and increasing lower extremity edema. He was admitted for management of acute on chronic congestive heart failure. - Discharge Data Discharge Date: 04/13/17 Discharge Disposition: Home, Self-Care 01 Condition: Fair - Discharge Diagnosis/Problem(s) (1) Systolic CHF with reduced left ventricular function, NYHA class 2 SNOMED Code(s): 471826137, [id number], [id number] ICD Code: I50.20 - UNSPECIFIED SYSTOLIC (CONGESTIVE) HEART FAILURE Status: Acute (2) Diabetes mellitus type 2 SNOMED Code(s): 78469308 ICD Code: E11.9 - TYPE 2 DIABETES MELLITUS WITHOUT COMPLICATIONS Status: Chronic Priority: Medium (3) Chronic atrial fibrillation SNOMED Code(s): 364924345 ICD Code: I48.2 - CHRONIC ATRIAL FIBRILLATION Status: Chronic - Patient Summary/Data Hospital Course: Yair presented to the emergency room with progressive shortness of breath as well as impressive lower extremity edema. Workup in the emergency room was suggestive of acute on chronic congestive heart failure and he was admitted to the hospital for additional management. Initially bolused doses of bumetanide were tried without much improvement. Larger doses were tried when the smaller doses were not successful and again there was not much in the way of diuresis. He was started on a bumetanide infusion couple of days after admission and fortunately had an excellent response to the slow infusion. Over the next few days he had a very impressive diuresis with his kidneys tolerating the bumetanide infusion quite well. He had fairly rapid improvement in his lower extremity edema which had initially been present all the way up onto his abdominal wall. His shortness of breath improved and lung exam improved throughout the course of the hospital stay. Kidney function has remained stable throughout the entire hospital stay. Symptomatically has improved every day. His lower extremity edema has not resolved but has improved dramatically. He was transitioned to oral diuretics and this was titrated one additional day and his home dose will be 3 mg once daily. He has tolerated medical therapy with beta kerry and MAURA inhibitor. Warfarin level has been therapeutic for his chronic atrial fibrillation which has been well rate controlled. An echocardiogram was obtained during the middle portion of the hospital stay. This showed a moderately reduced ejection fraction at 35-40%. He has severe tricuspid and mitral regurgitation as well as mild aortic insufficiency. Compensation has been improving with the diuresis. He is interested in discussion with a police detention attendant and if necessary a consultation with the cardiothoracic surgeon for possible valve replacement surgery. I am hopeful that medical management will be sufficient but I believe that specialty consultation would be beneficial to ensure optimal medication management. He has been ambulating well without significant dyspnea. Vital signs have been stable. I believe he is safe for outpatient management at this time and will be discharged to home with close clinic follow-up. - Patient Instructions Diet: Heart Healthy Diet Activity: As Tolerated Showering/Bathing: May Shower Notify Provider of: Fever, Increased Pain, Nausea and/or Vomiting Other/Special Instructions: 1. You Were in the hospital for management of acute on chronic systolic congestive heart failure. You have a reduced ejection fraction as well as several valvular abnormalities that caused her heart to not work at full efficiency. We have made some improvements in your volume status by using diuretic medications like bumetanide. I recommend that you continue taking bumetanide 3 mg once a day after your transition home from the hospital. You would benefit from a follow-up with a police detention attendant as well as possibly referrals to the heart failure clinic and possibly to the cardiothoracic surgeon if the police detention attendant feels that you could benefit from a valve surgery. 2. You should follow a low sodium and heart healthy diet. I would recommend that you keep track of your weight on a daily basis and alert your primary care provider further team if you are gaining more than 2 pounds per day. This may be a sign that you are retaining fluid again. 3. I would recommend that you use your compression socks daily. Put them on in the morning and take them off at bedtime. 4. Please [facility] with [facility] as [facility]. I would recommend a follow-up with Micky ARELLANO in the next 1 or 2 weeks and he can help set up referrals to the cardiology folks. 5. Please seek medical attention if you develop fever greater than 101, have sudden worsening of your shortness of breath, or if you develop severe chest pain. - Discharge Plan Prescriptions/Med Rec: Bumetanide [Bumex] 3 mg PO DAILY #45 tablet Home Medications: Home Meds Acetaminophen [Acetaminophen Extra Strength] 1,000 mg PO Q6HR PRN 02/26/14 [ History] Calcium Carbonate/Vitamin D3 [Calcium 600 + Vit D Tablet] 1 tab PO DAILY [History] Fish Oil/[place]-3 Fatty Acids [Fish Oil 1,000 MG] 1 tab PO DAILY 02/26/14 [ History] Glucosamine/D3/Boswellia Ivet [Osteo Bi-Flex Caplet] 1 tab PO DAILY 02/09/15 [ History] Meclizine HCl 25 mg PO TID PRN 02/09/15 [History] Warfarin [Coumadin] 7.5 mg PO ASDIRECTED 11/17/15 [History] Allopurinol [Zyloprim] 100 mg PO DAILY tablet 01/31/17 [Rx] Aspirin 81 mg PO DAILY tab.chew 01/31/17 [Rx] Docusate Sodium [Colace 50 MG/5 ML Liquid] 50 mg PO DAILY cup 01/31/17 [Rx] Metoprolol Succinate [Toprol XL] 50 mg PO DAILY tab.er 01/31/17 [Rx] Nitroglycerin [IJP: Nitroglycerin] 0.4 mg SL ASDIRECTED PRN #0 tablet, sublingual 01/31/17 [Rx] atorvaSTATin [Lipitor] 40 mg PO DAILY tablet 01/31/17 [Rx] glipiZIDE [Glucotrol XL] 20 mg PO BIDM 01/31/17 [Rx] Sennosides/Docusate Sodium [Senna-Docusate Sodium] 1 each PO DAILY 04/06/17 [ History] Warfarin [Coumadin] 5 mg PO ASDIRECTED 04/06/17 [History] metFORMIN [Glucophage] 1,000 mg PO BID 04/06/17 [History] Bumetanide [Bumex] 3 mg PO DAILY #45 tablet 04/13/17 [Rx] Patient Handouts: Potassium Salts tablets, extended-release tablets or capsules , Bumetanide tablets, Heart Failure Referrals: Micky Jenkins PA [Ordering Only Provider] - (f/u hospital stay for congestive heart failure, consider cardiology and possibly cardiothoracic surgery referral with significant valvular disease) - Discharge Summary/Plan Comment DC Time >30 min.: No (30) - Patient Data Vitals - Most Recent: Last Vital Signs Temp 36.6 C 04/13/17 11:10 Pulse 59 L 04/13/17 11:10 Resp 16 04/13/17 11:10 BP 119/58 L 04/13/17 11:10 Pulse Ox 93 L 04/13/17 11:10 Weight - Most Recent: 100.879 kg I&O - Last 24 hours: Intake & Output 04/13/17 04/13/17 04/13/17 06:59 14:59 22:59 Intake Total 840 420 Output Total 250 400 Balance 590 20 Lab Results - Last 24 hrs: Laboratory Results - last 24 hr 04/13/17 04/13/17 Range/Units 04:15 04:15 PT 27.6 H (9.5-12.0) sec INR 2.48 H (0.80-1.20) Sodium 137 L (140-148) mmol/L Potassium 4.5 (3.6-5.2) mmol/L Chloride 102 (100-108) mmol/L Carbon Dioxide 29 (21-32) mmol/L Anion Gap 10.5 (5.0-14.0) mmol/L BUN 28 H (7-18) mg/dL Creatinine 0.9 (0.8-1.3) mg/dL Est Cr Clr Drug Dosing 85.21 mL/min Estimated GFR (MDRD) > 60 (>60) Glucose 142 H (74-106) mg/dL Calcium 9.2 (8.5-10.1) mg/dL Med Orders - Current: Current Medications Acetaminophen (Tylenol) 650 mg PO Q4H PRN PRN Reason: Pain (Mild 1-3)/fever Last Admin: 04/11/17 22:23 Dose: 650 mg Albuterol (Proventil Neb Soln) 2.5 mg NEB Q4H PRN PRN Reason: Shortness Of Breath/wheezing Last Admin: 04/09/17 22:24 Dose: 2.5 mg Allopurinol (Zyloprim) 100 mg PO DAILY [facility] Last Admin: 04/13/17 08:35 Dose: 100 mg Aspirin (Aspirin) 81 mg PO DAILY [facility] Last Admin: 04/13/17 08:33 Dose: 81 mg Atorvastatin Calcium (Lipitor) 40 mg PO DAILY [facility] Last Admin: 04/13/17 08:33 Dose: 40 mg Bumetanide (Bumex) 3 mg PO DAILY [facility] Last Admin: 04/13/17 10:07 Dose: 3 mg Calcium Carbonate/Glycine (Tums) 1,000 mg PO Q2H PRN PRN Reason: Indigestion Last Admin: 04/12/17 21:11 Dose: 1,000 mg Dextrose (Glutose 15) 15 gm PO ONETIME PRN PRN Reason: Hypoglycemia Dextrose/Water (Dextrose 50% In Water) 50 ml IV ONETIME PRN PRN Reason: Hypoglycemia Insulin Aspart (Novolog) 0 unit SUBCUT ASDIRECTED [facility] PRN Reason: Protocol Last Admin: 04/12/17 17:04 Dose: 1 unit Lisinopril (Prinivil) 5 mg PO DAILY [facility] Last Admin: 04/13/17 08:37 Dose: 5 mg Magnesium Hydroxide (Milk Of Magnesia) 30 ml PO Q12H PRN PRN Reason: Constipation Last Admin: 04/07/17 14:21 Dose: 30 ml Metformin HCl (Glucophage) 1,000 mg PO BIDMEALS [facility] Last Admin: 04/13/17 08:32 Dose: 1,000 mg Metoprolol Succinate (Toprol Xl) 50 mg PO DAILY [facility] Last Admin: 04/13/17 08:37 Dose: 50 mg Nitroglycerin (Nitrostat) 0.4 mg SL ASDIRECTED PRN PRN Reason: Chest Pain Ondansetron HCl (Zofran) 4 mg IV Q4H PRN PRN Reason: Nausea/Vomiting Oxycodone HCl (Oxycodone) 5 mg PO Q4H PRN PRN Reason: Pain (moderate 4-6) Polyethylene Glycol (Miralax) 17 gm PO DAILY PRN PRN Reason: Constipation Potassium Chloride (Klor-Con M20) 40 meq PO BIDMEALS [facility] Last Admin: 04/13/17 08:33 Dose: 40 meq Senna/Docusate Sodium (Senna Plus) 1 tab PO DAILY [facility] Last Admin: 04/13/17 08:34 Dose: 1 tab Sodium Chloride (Saline Flush) 10 ml FLUSH ASDIRECTED PRN PRN Reason: Keep Vein Open Discontinued Medications Bumetanide (Bumex) 2 mg IVPUSH Q24H [facility] Last Admin: 04/06/17 17:39 Dose: 2 mg Bumetanide (Bumex) 2 mg IVPUSH Q12H [facility] Last Admin: 04/07/17 08:24 Dose: 2 mg Bumetanide (Bumex) 4 mg IVPUSH Q12H [facility] Last Admin: 04/08/17 04:34 Dose: 4 mg Bumetanide (Bumex) 2 mg PO DAILY [facility] Last Admin: 04/12/17 08:28 Dose: 2 mg Sodium Chloride (Normal Saline) 80 mls @ 3 mls/sec IV ASDIRECTED [facility] Bumetanide 10 mg/ Sodium (Chloride) 100 mls @ 10 mls/hr IV TITRATE EDY; 1 MG/HR PRN Reason: Protocol Stop: 04/12/17 04:00 Last Admin: 04/12/17 00:07 Dose: 1 mg/hr, 10 mls/hr Iopamidol (Isovue-370 (76%)) 100 ml IV . DIRECTED [facility] Metformin HCl (Glucophage) 1,000 mg PO BID [facility] Last Admin: 04/06/17 21:29 Dose: 1,000 mg Potassium Chloride (Klor-Con M20) 40 meq PO ONETIME ONE Stop: 04/10/17 09:01 Last Admin: 04/10/17 09:12 Dose: 40 meq Sodium Chloride (Saline Flush) 10 ml FLUSH ASDIRECTED PRN PRN Reason: Keep Vein Open Warfarin Sodium (Coumadin) 5 mg PO MoFr@1300 [facility] Last Admin: 04/07/17 13:23 Dose: 5 mg Warfarin Sodium (Coumadin) 7.5 mg PO SuTuWeThSa@1300 [facility] Last Admin: 04/09/17 12:35 Dose: 7.5 mg Warfarin Sodium (Coumadin) 7.5 mg PO DAILY@1300 [facility] Last Admin: 04/12/17 13:31 Dose: 7.5 mg Warfarin Sodium (Coumadin) 5 mg PO ONETIME ONE Stop: 04/13/17 13:01 Last Admin: 04/13/17 13:31 Dose: 5 mg *Q Meaningful Use (DIS) - VTE *Q VTE Criteria *Q: VTE Pharmacological Contraindications *Q: High INR Value - Stroke *Q Stroke Criteria *Q: - AMI *Q AMI Criteria *Q:
[2017-04-13 15:10] VITALS: BP 128/67
== END 2017-04-13 16:19 | disposition home or self-care (01) | DRG 293 ==
LOC: JP.ED 15:10 → UNDOADMIN 18:13 → JP.MS 18:13 → UNDODISIN 04-13 16:19
PROVIDERS: ADMIT Hospitalist; ATTEND Internal Medicine
DX: I11.0 Hypertensive heart disease with heart failure (principal); I50.23 Acute on chronic systolic (congestive) heart failure; E11.9 Type 2 diabetes mellitus without complications; I48.2 Chronic atrial fibrillation; Z79.01 Long term (current) use of anticoagulants; Z79.84 Long term (current) use of oral hypoglycemic drugs; Z87.891 Personal history of nicotine dependence; Z79.82 Long term (current) use of aspirin; I25.10 Atherosclerotic heart disease of native coronary artery without angina pectoris; R07.9 Chest pain, unspecified; R06.02 Shortness of breath; M79.652 Pain in left thigh; Z53.29 Procedure and treatment not carried out because of patient's decision for other reasons; Z95.1 Presence of aortocoronary bypass graft; Z86.73 Personal history of transient ischemic attack (TIA), and cerebral infarction without residual deficits; Z85.46 Personal history of malignant neoplasm of prostate; M19.90 Unspecified osteoarthritis, unspecified site; K59.09 Other constipation; Z95.0 Presence of cardiac pacemaker; I25.2 Old myocardial infarction; H91.90 Unspecified hearing loss, unspecified ear; H54.7 Unspecified visual loss; H35.30 Unspecified macular degeneration; Z96.659 Presence of unspecified artificial knee joint; Z88.1 Allergy status to other antibiotic agents; Z91.040 Latex allergy status; Z88.8 Allergy status to other drugs, medicaments and biological substances
CPT/HCPCS: 36415; 71010; 71010-26; 73552-26-LT; 73552-LT; 80048; 80053; 81001; 82803; 82962; 83605; 83735; 83880; 84484; 85025; 85027; 85379; 85610; 93005; 93010; 93306; 96361; 96374; 96376; 99284; 99285; 99285-25; A9270-GY; J1940; J7030; J7040; S0171

== ENCOUNTER 2017-04-15 19:56 | Observation (INO) | payer MEDICARE, BC ==
[2017-04-15] MEDS ORDERED: Acetaminophen 325 MG Tab PO ONE (20:27)
--- NOTE | 2017-04-15 20:31 | EDM.PDOC ---
ED HPI GENERAL MEDICAL PROBLEM - General Chief Complaint: Back Pain or Injury Stated Complaint: FELL Time Seen by Provider: 04/15/17 20:00 Source of Information: Reports: Patient, Family, RN Notes Reviewed History Limitations: Reports: No Limitations - History of Present Illness INITIAL COMMENTS - FREE TEXT/NARRATIVE: 77-year-old gentleman presents emergency department today via EMS services, fall at home he was recently discharged from hospital for exacerbation of congestive heart failure, was doing well at home had gotten up to walk across the room tripped on a rug and fell to the ground landing on his knees and then onto a chair. He is complaining of pain in his mid back he is also experiencing headache pain however this was prior to the fall has not tried anything for the pain does have some sinus congestion no loss of bowel or bladder - Related Data Allergies Allergy/AdvReac Type Severity Reaction Status Date / Time cefaclor [From Ceclor] Allergy Rash Verified 04/15/17 20:11 cefuroxime axetil Allergy Cannot Verified 04/15/17 20:11 [From Ceftin] Remember contact metal agent Allergy Cannot Verified 04/15/17 20:11 Remember diltiazem HCl [From Cardizem] Allergy Cannot Verified 04/15/17 20:11 Remember latex Allergy Rash Verified 04/15/17 20:11 metronidazole [From Flagyl] Allergy Rash Verified 04/15/17 20:11 Metronidazole HCl Allergy Rash Verified 04/15/17 20:11 [From Flagyl] naproxen [From Naprosyn] AdvReac Liver Verified 04/15/17 20:11 Problems ranitidine AdvReac Stomach Verified 04/15/17 20:11 Upset Home Meds: Home Meds Acetaminophen [Acetaminophen Extra Strength] 1,000 mg PO Q6HR PRN 02/26/14 [ History] Calcium Carbonate/Vitamin D3 [Calcium 600 + Vit D Tablet] 1 tab PO DAILY [History] Fish Oil/[place]-3 Fatty Acids [Fish Oil 1,000 MG] 1 tab PO DAILY 02/26/14 [ History] Glucosamine/D3/Boswellia Ivet [Osteo Bi-Flex Caplet] 1 tab PO DAILY 02/09/15 [ History] Meclizine HCl 25 mg PO TID PRN 02/09/15 [History] Warfarin [Coumadin] 7.5 mg PO ASDIRECTED 11/17/15 [History] Allopurinol [Zyloprim] 100 mg PO DAILY tablet 01/31/17 [Rx] Aspirin 81 mg PO DAILY tab.chew 01/31/17 [Rx] Docusate Sodium [Colace 50 MG/5 ML Liquid] 50 mg PO DAILY cup 01/31/17 [Rx] Metoprolol Succinate [Toprol XL] 50 mg PO DAILY tab.er 01/31/17 [Rx] Nitroglycerin [IJP: Nitroglycerin] 0.4 mg SL ASDIRECTED PRN #0 tablet, sublingual 01/31/17 [Rx] atorvaSTATin [Lipitor] 40 mg PO DAILY tablet 01/31/17 [Rx] glipiZIDE [Glucotrol XL] 20 mg PO BIDM 01/31/17 [Rx] Sennosides/Docusate Sodium [Senna-Docusate Sodium] 1 each PO DAILY 04/06/17 [ History] Warfarin [Coumadin] 5 mg PO ASDIRECTED 04/06/17 [History] metFORMIN [Glucophage] 1,000 mg PO BID 04/06/17 [History] Bumetanide [Bumex] 3 mg PO DAILY #45 tablet 04/13/17 [Rx] Past Medical History HEENT History: Reports: Cataract, Glaucoma, Hard of Hearing, Impaired Vision, Macular Degeneration, Otitis Media, Sinusitis Cardiovascular History: Reports: Afib, Bypass, CAD, High Cholesterol, Hypertension, CA, Pacemaker Respiratory History: Reports: SOB Gastrointestinal History: Reports: Chronic Constipation, Chronic Diarrhea, Other (See Below) Other Gastrointestinal History: diverticulitis, bloody stools Genitourinary History: Reports: Prostate Disorder Musculoskeletal History: Reports: Arthritis, Osteoarthritis Neurological History: Reports: CVA, TIA, Vertigo Endocrine/Metabolic History: Reports: Diabetes, Type II Hematologic History: Reports: Anticoagulation Therapy, Blood Transfusion(s) Immunologic History: Reports: None Oncologic (Cancer) History: Reports: Prostate - Infectious Disease History Infectious Disease History: Reports: Chicken Pox, Measles Other Infectious Disease History: unknown to patient - Past Surgical History HEENT Surgical History: Reports: Myringotomy w Tube(s) Cardiovascular Surgical History: Reports: Coronary Artery Bypass, Pacer GI Surgical History: Reports: Appendectomy, Cholecystectomy, Colonoscopy, Hernia , Abdominal, Hernia, Inguinal, Hernia Repair/Other Male Surgical History: Reports: TURP-Transurethral Resection of Prostate Musculoskeletal Surgical History: Reports: Knee Replacement Oncologic Surgical History: Reports: None Dermatological Surgical History: Reports: Skin Biopsy Social & Family History - Family History HEENT: Reports: Impaired Vision Cardiac: Reports: Afib, CAD, CA Respiratory: Reports: COPD GI: Reports: Cirrhosis, Pancreatitis : Reports: None OBGYN: Reports: None Musculoskeletal: Reports: Arthritis Neurological: Reports: CVA Psychiatric: Reports: None Endocrine/Metabolic: Reports: Diabetes, type II Hematologic: Reports: None Immunologic: Reports: None Dermatologic: Reports: None Oncologic: Reports: None - Tobacco Use Smoking Status *Q: Never Smoker Years of Tobacco use: 42 Packs/Tins Daily: 1 Used Tobacco, but Quit: Yes Month Tobacco Last Used: UNKNOWN Second Hand Smoke Exposure: Yes - Caffeine Use Caffeine Use: Reports: Coffee - Alcohol Use Days Per Week of Alcohol Use: 0 Number of Drinks Per Day: 0 Total Drinks Per Week: 0 - Recreational Drug Use Recreational Drug Use: No ED ROS GENERAL - Review of Systems Review Of Systems: See Below Constitutional: Reports: No Symptoms HEENT: Reports: No Symptoms Respiratory: Reports: No Symptoms Cardiovascular: Reports: No Symptoms GI/Abdominal: Reports: No Symptoms : Reports: No Symptoms Musculoskeletal: Reports: Back Pain Skin: Reports: No Symptoms Neurological: Reports: Headache ED EXAM, UPPER BACK/NECK PAIN - Physical Exam Exam: See Below Exam Limited By: No Limitations General Appearance: Alert, WD/WN, No Apparent Distress Head Exam: Atraumatic, Normocephalic Neck Exam: Non-Tender, Full Range of Motion, Normal Alignment, Normal Inspection Cardiovascular/Respiratory: Regular Rate, Rhythm, No M/R/G, No Respiratory Distress, Other GI/Abdominal: Normal Bowel Sounds, Soft, Non-Tender Back Exam: Vertebral Tenderness. No: CVA Tenderness (R), CVA Tenderness (L), Muscle Spasm, Paraspinal Tenderness Extremities: Normal Range of Motion, Non-Tender. No: Pedal Edema Course - Vital Signs Last Recorded V/S: Last Vital Signs Temp 98.1 F 04/15/17 20:19 Pulse 67 04/15/17 20:19 Resp 16 04/15/17 20:19 BP 114/56 L 04/15/17 20:19 Pulse Ox 93 L 04/15/17 20:19 - Orders/Labs/Meds Orders: Active Orders 24 hr Category Date Time Status Peripheral IV Care [RC] . DIRECTED Care 04/15/17 21:45 Active Thoracic Spine 2V [CR] Stat Exams 04/15/17 20:27 Taken UA W/MICROSCOPIC [URIN] Urgent Lab 04/15/17 21:44 Uncollected Sodium Chloride 0.9% [Saline Flush] Med 04/15/17 21:44 Active 10 ml FLUSH ASDIRECTED PRN Peripheral IV Insertion Adult [OM.PC] Urgent Oth 04/15/17 21:44 Ordered Medication Orders Sodium Chloride (Saline Flush) 10 ml FLUSH ASDIRECTED PRN PRN Reason: Keep Vein Open Last Admin: 04/15/17 22:17 Dose: 10 ml Labs: Laboratory Tests 04/15/17 04/15/17 04/15/17 Range/Units 21:55 21:55 21:55 WBC 5.8 (4.5-11.0) K/uL RBC 3.34 L (4.30-5.90) M/uL Hgb 10.3 L (12.0-15.0) g/dL Hct 31.5 L (40.0-54.0) % MCV 94 (80-98) fL MCH 31 (27-31) pg MCHC 33 (32-36) % Plt Count 156 (150-400) K/uL Neut % (Auto) 78 H (36-66) % Lymph % (Auto) 8 L (24-44) % [place] % (Auto) 11 H (2-6) % Eos % (Auto) 3 (2-4) % Baso % (Auto) 0 (0-1) % Sodium 136 L (140-148) mmol/L Potassium 4.2 (3.6-5.2) mmol/L Chloride 101 (100-108) mmol/L Carbon Dioxide 32 (21-32) mmol/L Anion Gap 7.2 (5.0-14.0) mmol/L BUN 26 H (7-18) mg/dL Creatinine 1.3 (0.8-1.3) mg/dL Est Cr Clr Drug Dosing 58.99 mL/min Estimated GFR (MDRD) 54 L (>60) Glucose 256 H (74-106) mg/dL Lactic Acid (0.4-2.0) mmol/L Calcium 9.3 (8.5-10.1) mg/dL Total Bilirubin 1.5 H (0.2-1.0) mg/dL AST 53 H (15-37) U/L ALT 29 (12-78) U/L Alkaline Phosphatase 270 H (46-116) U/L Ammonia 29 (11-32) mmol/L Troponin I 0.036 (0.000-0.056) ng/mL Total Protein 7.5 (6.4-8.2) g/dL Albumin 2.6 L (3.4-5.0) g/dL Globulin 4.9 H (2.3-3.5) g/dL Albumin/Globulin Ratio 0.5 L (1.2-2.2) 04/15/17 Range/Units 21:55 WBC (4.5-11.0) K/uL RBC (4.30-5.90) M/uL Hgb (12.0-15.0) g/dL Hct (40.0-54.0) % MCV (80-98) fL MCH (27-31) pg MCHC (32-36) % Plt Count (150-400) K/uL Neut % (Auto) (36-66) % Lymph % (Auto) (24-44) % [place] % (Auto) (2-6) % Eos % (Auto) (2-4) % Baso % (Auto) (0-1) % Sodium (140-148) mmol/L Potassium (3.6-5.2) mmol/L Chloride (100-108) mmol/L Carbon Dioxide (21-32) mmol/L Anion Gap (5.0-14.0) mmol/L BUN (7-18) mg/dL Creatinine (0.8-1.3) mg/dL Est Cr Clr Drug Dosing mL/min Estimated GFR (MDRD) (>60) Glucose (74-106) mg/dL Lactic Acid 1.7 (0.4-2.0) mmol/L Calcium (8.5-10.1) mg/dL Total Bilirubin (0.2-1.0) mg/dL AST (15-37) U/L ALT (12-78) U/L Alkaline Phosphatase (46-116) U/L Ammonia (11-32) mmol/L Troponin I (0.000-0.056) ng/mL Total Protein (6.4-8.2) g/dL Albumin (3.4-5.0) g/dL Globulin (2.3-3.5) g/dL Albumin/Globulin Ratio (1.2-2.2) Meds: Medications Generic Name Dose Route Start Last Admin Trade Name Octavio PRN Reason Stop Dose Admin Sodium Chloride 10 ml 04/15/17 21:44 04/15/17 22:17 Saline Flush FLUSH 10 ml ASDIRECTED PRN Administration Keep Vein Open Discontinued Medications Generic Name Dose Route Start Last Admin Trade Name Octavio PRN Reason Stop Dose Admin Acetaminophen 650 mg 04/15/17 20:27 04/15/17 20:31 Tylenol PO 04/15/17 20:28 650 mg NOW ONE Administration Hydromorphone HCl 0.5 mg 04/15/17 21:44 04/15/17 22:17 Dilaudid IVPUSH 04/15/17 21:45 0.5 mg ONETIME ONE Administration Departure - Departure Time of Disposition: 22:31 Disposition: Home, Self-Care 01 Condition: Poor Clinical Impression: Compression fracture of thoracic vertebra Qualifiers: Encounter type: initial encounter Fracture type: closed Qualified Code(s): S22.000A - Wedge compression fracture of unspecified thoracic vertebra, initial encounter for closed fracture - Discharge Information Forms: ED Department Discharge - My Orders Last 24 Hours: My Active Orders 04/15/17 20:27 Thoracic Spine 2V [CR] Stat 04/15/17 21:44 UA W/MICROSCOPIC [URIN] Urgent Sodium Chloride 0.9% [Saline Flush] 10 ml FLUSH ASDIRECTED PRN Peripheral IV Insertion Adult [OM.PC] Urgent 04/15/17 21:45 Peripheral IV Care [RC] . DIRECTED - Assessment/Plan Last 24 Hours: My Active Orders 04/15/17 20:27 Thoracic Spine 2V [CR] Stat 04/15/17 21:44 UA W/MICROSCOPIC [URIN] Urgent Sodium Chloride 0.9% [Saline Flush] 10 ml FLUSH ASDIRECTED PRN Peripheral IV Insertion Adult [OM.PC] Urgent 04/15/17 21:45 Peripheral IV Care [RC] . DIRECTED Plan: Assessment Acuity = acute Site and laterality = T7 compression fracture with weakness, again the patient with known history of diabetes mellitus type 2 and congestive heart failure Etiology = secondary to fall Manifestations = pain Location of injury = Home Lab values = hemoglobin low at 10.3 consistent normochromic anemia sodium low at 136 consistent hyponatremia lactic acid normal at 1.7 total bilirubin elevated 1.5 consistent hyperbilirubinemia albumin low at 2.4 consistent with hypoalbuminemia, thoracic spine film shows compression fracture T7 of undetermined age official read radiology is pending Plan I did review lab work and x-ray results with him he feels he is too weak to go home did provide him narcotic medication as well as Tylenol which did provide some pain relief discuss case with hospitalist education sales consultant he agreed to evaluate the patient in the ED for admission Patient was in agreement with the plan all questions were answered. This note was dictated using [employer] voice recognition software please call with any questions.
[2017-04-15] MEDS ORDERED: Sodium Chloride 0.9% 10 ML Syringe FLUSH PRN (21:44)
[2017-04-15] MEDS ORDERED: HYDROmorphone 0.5 MG/0.5 ML Syringe IVPUSH ONE (21:44)
--- NOTE | 2017-04-15 22:46 | PCM.HP ---
H&P History of Present Illness - General Date of Service: 04/15/17 Admit Problem/Dx: Admission Diagnosis/Problem Admission Diagnosis/Problem Back pain Source of Information: Patient, Provider History Limitations: Reports: No Limitations - History of Present Illness Initial Comments - Free Text/Narative: Yair presents to the emergency room today with back pain and weakness. He reports that he tripped and fell while getting up from the kitchen table today. He landed awkwardly and has had some mid back pain since that time. He also feels weak all over. Back is feeling a little better after a dose of pain medication in the emergency room. He describes achy mid back pain that is moderate in nature prior to pain medications. Pain radiates throughout his back with some sharp shooting pains. Moving makes the pain worse. He did not take anything at home to make the pain better. He thinks that his shortness of breath has been stable or better since his discharge a few days ago. Lower extremity edema continues to improve. No fevers. Workup in the emergency room was reassuring. Patient was uncomfortable and is sleepy after dose of pain medication. He's uncomfortable going home because of his weakness and pain. - Related Data Allergies/Adverse Reactions: Allergies Allergy/AdvReac Type Severity Reaction Status Date / Time cefaclor [From Ceclor] Allergy Rash Verified 04/15/17 20:11 cefuroxime axetil Allergy Cannot Verified 04/15/17 20:11 [From Ceftin] Remember contact metal agent Allergy Cannot Verified 04/15/17 20:11 Remember diltiazem HCl [From Cardizem] Allergy Cannot Verified 04/15/17 20:11 Remember latex Allergy Rash Verified 04/15/17 20:11 metronidazole [From Flagyl] Allergy Rash Verified 04/15/17 20:11 Metronidazole HCl Allergy Rash Verified 04/15/17 20:11 [From Flagyl] naproxen [From Naprosyn] AdvReac Liver Verified 04/15/17 20:11 Problems ranitidine AdvReac Stomach Verified 04/15/17 20:11 Upset Home Medications: Home Meds Acetaminophen [Acetaminophen Extra Strength] 1,000 mg PO Q6HR PRN 02/26/14 [ History] Calcium Carbonate/Vitamin D3 [Calcium 600 + Vit D Tablet] 1 tab PO DAILY [History] Fish Oil/Severance-3 Fatty Acids [Fish Oil 1,000 MG] 1 tab PO DAILY 02/26/14 [ History] Glucosamine/D3/Boswellia Ivet [Osteo Bi-Flex Caplet] 1 tab PO DAILY 02/09/15 [ History] Meclizine HCl 25 mg PO TID PRN 02/09/15 [History] Warfarin [Coumadin] 7.5 mg PO ASDIRECTED 11/17/15 [History] Allopurinol [Zyloprim] 100 mg PO DAILY tablet 01/31/17 [Rx] Aspirin 81 mg PO DAILY tab.chew 01/31/17 [Rx] Docusate Sodium [Colace 50 MG/5 ML Liquid] 50 mg PO DAILY cup 01/31/17 [Rx] Metoprolol Succinate [Toprol XL] 50 mg PO DAILY tab.er 01/31/17 [Rx] Nitroglycerin [IJP: Nitroglycerin] 0.4 mg SL ASDIRECTED PRN #0 tablet, sublingual 01/31/17 [Rx] atorvaSTATin [Lipitor] 40 mg PO DAILY tablet 01/31/17 [Rx] glipiZIDE [Glucotrol XL] 20 mg PO BIDM 01/31/17 [Rx] Sennosides/Docusate Sodium [Senna-Docusate Sodium] 1 each PO DAILY 04/06/17 [ History] Warfarin [Coumadin] 5 mg PO ASDIRECTED 04/06/17 [History] metFORMIN [Glucophage] 1,000 mg PO BID 04/06/17 [History] Bumetanide [Bumex] 3 mg PO DAILY #45 tablet 04/13/17 [Rx] Past Medical History HEENT History: Reports: Cataract, Glaucoma, Hard of Hearing, Impaired Vision, Macular Degeneration, Otitis Media, Sinusitis Cardiovascular History: Reports: Afib, Bypass, CAD, High Cholesterol, Hypertension, DC, Pacemaker Respiratory History: Reports: SOB Gastrointestinal History: Reports: Chronic Constipation, Chronic Diarrhea, Other (See Below) Other Gastrointestinal History: diverticulitis, bloody stools Genitourinary History: Reports: Prostate Disorder Musculoskeletal History: Reports: Arthritis, Osteoarthritis Neurological History: Reports: CVA, TIA, Vertigo Endocrine/Metabolic History: Reports: Diabetes, Type II Hematologic History: Reports: Anticoagulation Therapy, Blood Transfusion(s) Immunologic History: Reports: None Oncologic (Cancer) History: Reports: Prostate - Infectious Disease History Infectious Disease History: Reports: Chicken Pox, Measles Other Infectious Disease History: unknown to patient - Past Surgical History HEENT Surgical History: Reports: Myringotomy w Tube(s) Cardiovascular Surgical History: Reports: Coronary Artery Bypass, Pacer GI Surgical History: Reports: Appendectomy, Cholecystectomy, Colonoscopy, Hernia , Abdominal, Hernia, Inguinal, Hernia Repair/Other Male Surgical History: Reports: TURP-Transurethral Resection of Prostate Musculoskeletal Surgical History: Reports: Knee Replacement Oncologic Surgical History: Reports: None Dermatological Surgical History: Reports: Skin Biopsy Social & Family History - Family History HEENT: Reports: Impaired Vision Cardiac: Reports: Afib, CAD, DC Respiratory: Reports: COPD GI: Reports: Cirrhosis, Pancreatitis : Reports: None OBGYN: Reports: None Musculoskeletal: Reports: Arthritis Neurological: Reports: CVA Psychiatric: Reports: None Endocrine/Metabolic: Reports: Diabetes, type II Hematologic: Reports: None Immunologic: Reports: None Dermatologic: Reports: None Oncologic: Reports: None - Tobacco Use Smoking Status *Q: Never Smoker Years of Tobacco use: 42 Packs/Tins Daily: 1 Used Tobacco, but Quit: Yes Month Tobacco Last Used: UNKNOWN Second Hand Smoke Exposure: Yes - Caffeine Use Caffeine Use: Reports: Coffee - Alcohol Use Days Per Week of Alcohol Use: 0 Number of Drinks Per Day: 0 Total Drinks Per Week: 0 - Recreational Drug Use Recreational Drug Use: No H&P Review of Systems - Review of Systems: Review Of Systems: See Below Free Text/Narrative: A complete 12 point review of systems was obtained. Pertinent positives and negatives are noted in the history of present illness. All other systems were reviewed and were negative except as noted. Exam - Exam Exam: See Below - Vital Signs Vital Signs: Last Vital Signs Temp 36.7 C 04/15/17 20:19 Pulse 67 04/15/17 20:19 Resp 16 04/15/17 20:19 BP 114/56 L 04/15/17 20:19 Pulse Ox 93 L 04/15/17 20:19 Weight: 105 kg - Exam Quality Assessment: No: Supplemental Oxygen General: Alert, Oriented, Cooperative. No: Mild Distress HEENT: Conjunctiva Clear, Mucosa Moist & [place]. No: Scleral Icterus Neck: Supple, Trachea Midline. No: Lymphadenopathy Lungs: Clear to Auscultation, Normal Respiratory Effort Cardiovascular: Regular Rate, Regular Rhythm, Systolic Murmur GI/Abdominal Exam: Normal Bowel Sounds, Soft, No Distention, Tender (Mild left lower quadrant) Back Exam: No: Full Range of Motion Extremities: Other (Pitting posterior edema of the thighs). No: Increased Warmth Peripheral Pulses: 1+: Dorsalis Pedis (L), Dorsalis Pedis (R) Skin: Warm, Dry Neuro Extensive - Mental Status: Alert, Oriented x3, Nl Response to Commands Neuro Extensive - Motor, Sensory, Reflexes: CN II-XII Intact. No: Dysarthria, Abnormal Motor, Tremor Psychiatric: Alert, Normal Affect - Patient Data Lab Results Last 24 hrs: Laboratory Results - last 24 hr 04/15/17 04/15/17 04/15/17 Range/Units 21:55 21:55 21:55 WBC 5.8 (4.5-11.0) K/uL RBC 3.34 L (4.30-5.90) M/uL Hgb 10.3 L (12.0-15.0) g/dL Hct 31.5 L (40.0-54.0) % MCV 94 (80-98) fL MCH 31 (27-31) pg MCHC 33 (32-36) % Plt Count 156 (150-400) K/uL Neut % (Auto) 78 H (36-66) % Lymph % (Auto) 8 L (24-44) % [place] % (Auto) 11 H (2-6) % Eos % (Auto) 3 (2-4) % Baso % (Auto) 0 (0-1) % Sodium 136 L (140-148) mmol/L Potassium 4.2 (3.6-5.2) mmol/L Chloride 101 (100-108) mmol/L Carbon Dioxide 32 (21-32) mmol/L Anion Gap 7.2 (5.0-14.0) mmol/L BUN 26 H (7-18) mg/dL Creatinine 1.3 (0.8-1.3) mg/dL Est Cr Clr Drug Dosing 58.99 mL/min Estimated GFR (MDRD) 54 L (>60) Glucose 256 H (74-106) mg/dL Lactic Acid (0.4-2.0) mmol/L Calcium 9.3 (8.5-10.1) mg/dL Total Bilirubin 1.5 H (0.2-1.0) mg/dL AST 53 H (15-37) U/L ALT 29 (12-78) U/L Alkaline Phosphatase 270 H (46-116) U/L Ammonia 29 (11-32) mmol/L Troponin I 0.036 (0.000-0.056) ng/mL Total Protein 7.5 (6.4-8.2) g/dL Albumin 2.6 L (3.4-5.0) g/dL Globulin 4.9 H (2.3-3.5) g/dL Albumin/Globulin Ratio 0.5 L (1.2-2.2) 04/15/17 Range/Units 21:55 WBC (4.5-11.0) K/uL RBC (4.30-5.90) M/uL Hgb (12.0-15.0) g/dL Hct (40.0-54.0) % MCV (80-98) fL MCH (27-31) pg MCHC (32-36) % Plt Count (150-400) K/uL Neut % (Auto) (36-66) % Lymph % (Auto) (24-44) % [place] % (Auto) (2-6) % Eos % (Auto) (2-4) % Baso % (Auto) (0-1) % Sodium (140-148) mmol/L Potassium (3.6-5.2) mmol/L Chloride (100-108) mmol/L Carbon Dioxide (21-32) mmol/L Anion Gap (5.0-14.0) mmol/L BUN (7-18) mg/dL Creatinine (0.8-1.3) mg/dL Est Cr Clr Drug Dosing mL/min Estimated GFR (MDRD) (>60) Glucose (74-106) mg/dL Lactic Acid 1.7 (0.4-2.0) mmol/L Calcium (8.5-10.1) mg/dL Total Bilirubin (0.2-1.0) mg/dL AST (15-37) U/L ALT (12-78) U/L Alkaline Phosphatase (46-116) U/L Ammonia (11-32) mmol/L Troponin I (0.000-0.056) ng/mL Total Protein (6.4-8.2) g/dL Albumin (3.4-5.0) g/dL Globulin (2.3-3.5) g/dL Albumin/Globulin Ratio (1.2-2.2) Result Diagrams: 04/15/17 21:55 04/15/17 21:55 Imaging Impressions Last 24 hrs: Thoracic spine x-ray - images personally reviewed - there appears to be some wedging of a vertebrae in the mid thoracic spine. It is unclear if this is new or old. Loss of height is relatively mild. *Q Meaningful Use (ADM) - VTE *Q VTE Criteria *Q: - VTE Risk Assess *Q Each Risk Factor Represents 1 Point: Swollen Legs, Current, Congestive Heart Failure, Less than 1 Month Total Score 1 Point Risk Factors: 2 Each Risk Factor Represents 2 Points: Previous Malignancy Total Score 2 Point Risk Factors: 2 Each Risk Factor Represents 3 Points: Age 75 Years or Greater Total Score 3 Point Risk Factors: 3 Each Risk Factor Represents 5 Points: None Total Score 5 Point Risk Factors: 0 Venous Thromboembolism Risk Factor Score *Q: 7 - Stroke *Q Stroke Criteria *Q: - AMI *Q AMI Criteria *Q: - Problem List (1) Compression fracture of thoracic vertebra SNOMED Code(s): 551794079, 765728680 ICD Code: S22.000A - WEDGE COMPRESSION FRACTURE OF UNSP THORACIC VERTEBRA, INIT Status: Acute Current Visit: Yes Qualifiers: Encounter type: initial encounter Fracture type: closed Qualified Code(s) : S22.000A - Wedge compression fracture of unspecified thoracic vertebra, initial encounter for closed fracture (2) Fall SNOMED Code(s): 9466765, 970930172 ICD Code: W19.XXXA - UNSPECIFIED FALL, INITIAL ENCOUNTER Status: Acute Current Visit: Yes Qualifiers: Encounter type: initial encounter Qualified Code(s): W19.XXXA - Unspecified fall, initial encounter (3) Systolic CHF with reduced left ventricular function, NYHA class 2 SNOMED Code(s): 607768374, 295454290, 469775495 ICD Code: I50.20 - UNSPECIFIED SYSTOLIC (CONGESTIVE) HEART FAILURE Status: Resolved Current Visit: No (4) Chronic atrial fibrillation SNOMED Code(s): 067115957 ICD Code: I48.2 - CHRONIC ATRIAL FIBRILLATION Status: Chronic Current Visit: No Problem List Initiated/Reviewed/Updated: Yes Orders Last 24hrs: Active Orders 24 hr Category Date Time Status Patient Status Manage Transfer [TRANSFER] Routine ADT 04/15/17 22:36 Ordered Peripheral IV Care [RC] . DIRECTED Care 04/15/17 21:45 Active Thoracic Spine 2V [CR] Stat Exams 04/15/17 20:27 Taken UA W/MICROSCOPIC [URIN] Urgent Lab 04/15/17 21:44 Uncollected Sodium Chloride 0.9% [Saline Flush] Med 04/15/17 21:44 Active 10 ml FLUSH ASDIRECTED PRN Peripheral IV Insertion Adult [OM.PC] Urgent Oth 04/15/17 21:44 Ordered Resuscitation Status Routine Resus Stat 04/15/17 22:37 Ordered Medication Orders Sodium Chloride (Saline Flush) 10 ml FLUSH ASDIRECTED PRN PRN Reason: Keep Vein Open Last Admin: 04/15/17 22:17 Dose: 10 ml Assessment/Plan Comment:: Assessment and plan - Fall with possible compression fracture and weakness - unclear if compression fracture is new or old at this time. Patient is weak and no sleepy with pain medications and not safe to go home tonight. Pain is well-controlled at this time. -Pain control -Reassess strength and function in the morning Systolic congestive heart failure, NYHA class II - Appears to be well compensated at this time and lower extremity edema has improved compared to hospital discharge a few days ago. -Continue medical management Chronic atrial fibrillation - Rate controlled. Chronically anticoagulated. -Continue home medication Maintenance issues - - DVT prophylaxis - warfarin - GI prophylaxis - PPI - Nutrition - regular diet - Emmanuel catheter - not indicated CODE STATUS - DNR/DNI Admission justification - patient will be referred observation status for monitoring overnight, pain control and reassessment of strength Disposition - anticipate discharge home tomorrow Primary care physician - [facility] Pako Wilkerson M.D.
[2017-04-15] MEDS ORDERED: oxyCODONE 5 MG Tab PO PRN (23:12)
[2017-04-15] MEDS ORDERED: Ondansetron 4 MG Tab.DIS PO PRN (23:12)
[2017-04-16] MEDS ORDERED: Allopurinol 100 MG Tab PO SCH (09:00)
[2017-04-16] MEDS ORDERED: Acetaminophen 500 MG Tab PO SCH (09:00)
[2017-04-16] MEDS ORDERED: Metoprolol Succinate 50 MG Tab.ER PO SCH (09:00)
[2017-04-16] MEDS ORDERED: Aspirin 81 MG Tab.Chew PO SCH (09:00)
[2017-04-16] MEDS ORDERED: Bumetanide 1 MG Tab PO SCH (09:00)
[2017-04-16] MEDS ORDERED: atorvaSTATin 20 MG Tab PO SCH (09:00)
[2017-04-16 10:56] VITALS: BP 118/60
--- NOTE | 2017-04-16 13:54 | PCM.DCSUM1 ---
Discharge Summary - Hospital Course Brief History: 77-year-old male with history of systolic congestive heart failure who presented with mid-back pain after a fall. He was admitted for pain control and observation. - Discharge Data Discharge Date: 04/16/17 Discharge Disposition: Home, Self-Care 01 Condition: Good - Discharge Diagnosis/Problem(s) (1) Compression fracture of thoracic vertebra SNOMED Code(s): 427416097, 676661554 ICD Code: S22.000A - WEDGE COMPRESSION FRACTURE OF UNSP THORACIC VERTEBRA, INIT Status: Acute Qualifiers: Encounter type: initial encounter Fracture type: closed Qualified Code(s) : S22.000A - Wedge compression fracture of unspecified thoracic vertebra, initial encounter for closed fracture (2) Fall SNOMED Code(s): 1680911, 256549126 ICD Code: W19.XXXA - UNSPECIFIED FALL, INITIAL ENCOUNTER Status: Acute Qualifiers: Encounter type: initial encounter Qualified Code(s): W19.XXXA - Unspecified fall, initial encounter (3) Systolic CHF with reduced left ventricular function, NYHA class 2 SNOMED Code(s): 047507429, 725263316, 353700159 ICD Code: I50.20 - UNSPECIFIED SYSTOLIC (CONGESTIVE) HEART FAILURE Status: Resolved (4) Chronic atrial fibrillation SNOMED Code(s): 667703698 ICD Code: I48.2 - CHRONIC ATRIAL FIBRILLATION Status: Chronic - Patient Summary/Data Hospital Course: Ines presented to the emergency room last night after a fall and resulting mid back pain. Workup in the emergency room suggested a possible thoracic compression fracture but it was not clear if this was new or old. Anthony felt that he was too weak to be safe at home last night and was admitted for observation. Overnight there were no acute events. He has minimal pain the day after admission. He is able to get out of bed on his own and ambulate 150 [address] the [place] using the handrail. He feels that his pain is controlled well enough that he is safe enough for outpatient management. He reports that he will have home health care services through the [facility] soon. I think he would benefit from both nursing and physical therapy. We discussed the situation with his son who felt that another trial at home would be acceptable. His congestive heart failure has remained well compensated since his discharge a few days ago. He will be discharged home with no new medications. Pain control will be with acetaminophen. - Patient Instructions Diet: Heart Healthy Diet Activity: As Tolerated Driving: Do Not Drive (Until your strength improves and you are able to get around better) Showering/Bathing: May Shower Notify Provider of: Fever, Increased Pain, Nausea and/or Vomiting Other/Special Instructions: 1. You were in the hospital for observation after a fall and resulting back pain. I would recommend that you use acetaminophen 650 mg every 4 hours as needed for pain. Try to remain active and avoid spending too much time sitting down or laying down as this can make your muscles stiffen up. I would strongly recommend that you utilize home health nursing and home health physical therapy services [facility]. 2. Please continue your usual home medications as previously prescribed. 3. Please seek medical attention if you develop fever greater than 101, have severe weakness that limits your activities of daily living or back pain that is severe enough to limit your ability to get out of bed or out of the chair. - Discharge Plan Home Medications: Home Meds Acetaminophen [Acetaminophen Extra Strength] 1,000 mg PO Q6HR PRN 02/26/14 [ History] Calcium Carbonate/Vitamin D3 [Calcium 600 + Vit D Tablet] 1 tab PO DAILY [History] Fish Oil/[place]-3 Fatty Acids [Fish Oil 1,000 MG] 1 tab PO DAILY 02/26/14 [ History] Glucosamine/D3/Boswellia Ivet [Osteo Bi-Flex Caplet] 1 tab PO DAILY 02/09/15 [ History] Meclizine HCl 25 mg PO TID PRN 02/09/15 [History] Warfarin [Coumadin] 7.5 mg PO ASDIRECTED 11/17/15 [History] Allopurinol [Zyloprim] 100 mg PO DAILY tablet 01/31/17 [Rx] Aspirin 81 mg PO DAILY tab.chew 01/31/17 [Rx] Docusate Sodium [Colace 50 MG/5 ML Liquid] 50 mg PO DAILY cup 01/31/17 [Rx] Metoprolol Succinate [Toprol XL] 50 mg PO DAILY tab.er 01/31/17 [Rx] Nitroglycerin [IJP: Nitroglycerin] 0.4 mg SL ASDIRECTED PRN #0 tablet, sublingual 01/31/17 [Rx] atorvaSTATin [Lipitor] 40 mg PO DAILY tablet 01/31/17 [Rx] glipiZIDE [Glucotrol XL] 20 mg PO BIDM 01/31/17 [Rx] Sennosides/Docusate Sodium [Senna-Docusate Sodium] 1 each PO DAILY 04/06/17 [ History] Warfarin [Coumadin] 5 mg PO ASDIRECTED 04/06/17 [History] metFORMIN [Glucophage] 1,000 mg PO BID 04/06/17 [History] Bumetanide [Bumex] 3 mg PO DAILY #45 tablet 04/13/17 [Rx] Patient Handouts: Back Exercises Referrals: PCP,None [Primary Care Provider] - (f/u with your primary care at the [facility] if symptoms do not continue to get better) - Discharge Summary/Plan Comment DC Time >30 min.: No (25) - Patient Data Vitals - Most Recent: Last Vital Signs Temp 36.7 C 04/16/17 10:54 Pulse 57 L 04/16/17 10:54 Resp 18 04/16/17 10:54 BP 118/60 04/16/17 10:54 Pulse Ox 90 L 04/16/17 10:54 Weight - Most Recent: 106.594 kg I&O - Last 24 hours: Intake & Output 04/15/17 04/16/17 04/16/17 22:59 06:59 14:59 Intake Total 480 Output Total 300 150 Balance -300 330 Med Orders - Current: Current Medications Acetaminophen (Tylenol Extra Strength) 1,000 mg PO TID [facility] Last Admin: 04/16/17 09:47 Dose: 1,000 mg Allopurinol (Zyloprim) 100 mg PO DAILY [facility] Aspirin (Aspirin) 81 mg PO DAILY [facility] Last Admin: 04/16/17 09:47 Dose: 81 mg Atorvastatin Calcium (Lipitor) 40 mg PO DAILY [facility] Bumetanide (Bumex) 3 mg PO DAILY [facility] Metoprolol Succinate (Toprol Xl) 50 mg PO DAILY [facility] Ondansetron HCl (Zofran Odt) 4 mg PO Q6H PRN PRN Reason: Nausea able to take PO Oxycodone HCl (Oxycodone) 5 mg PO Q4H PRN PRN Reason: Pain (moderate 4-6) Last Admin: 04/16/17 04:02 Dose: 5 mg Sodium Chloride (Saline Flush) 10 ml FLUSH ASDIRECTED PRN PRN Reason: Keep Vein Open Last Admin: 04/15/17 22:17 Dose: 10 ml Discontinued Medications Acetaminophen (Tylenol) 650 mg PO NOW ONE Stop: 04/15/17 20:28 Last Admin: 04/15/17 20:31 Dose: 650 mg Hydromorphone HCl (Dilaudid) 0.5 mg IVPUSH ONETIME ONE Stop: 04/15/17 21:45 Last Admin: 04/15/17 22:17 Dose: 0.5 mg *Q Meaningful Use (DIS) - VTE *Q VTE Criteria *Q: - Stroke *Q Stroke Criteria *Q: - AMI *Q AMI Criteria *Q:
--- NOTE | 2017-04-17 09:46 | CR ---
Thoracic Spine 2V HISTORY: pain t6 fall FINDINGS: Vertebral body alignment is satisfactory. There is mild scoliosis convex to the right. Dif fuse degenerative changes are seen with small anterior osteophytes. Bony structures are osteopenic. Mild wedge compression fractures of the T8 and T11 vertebral bodies appears similar to CT study of . No definite acute compression fractures identified. There is generalized cardiomegaly. Old median sternotomy changes are noted. Old median sternotomy changes and pacemaker lead wire are note d. Patchy interstitial prominence bilaterally is unchanged. IMPRESSION: Osteopenia. Degenerative changes thoracic spine. Old T8 and T11 compression fractures. N o definite acute thoracic spine abnormality can be identified.
== END 2017-04-16 14:16 | disposition home or self-care (01) ==
LOC: JP.ED 19:56 → JP.MS 22:36
PROVIDERS: ADMIT Internal Medicine; ATTEND Internal Medicine
DX: S22.000A Wedge compression fracture of unspecified thoracic vertebra, initial encounter for closed fracture (principal); I50.20 Unspecified systolic (congestive) heart failure; I48.2 Chronic atrial fibrillation; I10 Essential (primary) hypertension; E78.00 Pure hypercholesterolemia, unspecified; E11.9 Type 2 diabetes mellitus without complications; W19.XXXA Unspecified fall, initial encounter; Z79.82 Long term (current) use of aspirin; Z79.84 Long term (current) use of oral hypoglycemic drugs; Z79.01 Long term (current) use of anticoagulants; Z79.899 Other long term (current) drug therapy; Z88.1 Allergy status to other antibiotic agents; Z88.8 Allergy status to other drugs, medicaments and biological substances; Z91.040 Latex allergy status; Z91.09 Other allergy status, other than to drugs and biological substances; Z95.0 Presence of cardiac pacemaker; Z95.1 Presence of aortocoronary bypass graft; Z90.49 Acquired absence of other specified parts of digestive tract; Z98.890 Other specified postprocedural states; Z96.659 Presence of unspecified artificial knee joint
CPT/HCPCS: 36415; 72070; 80053; 82140; 83605; 84484; 85025; 96374; 99284; A9270; G0378; J1170; J7050; 99217; 99219

== ENCOUNTER 2017-04-18 00:18 | Emergency (ER) | payer MEDICARE, BC ==
[2017-04-18] MEDS ORDERED: SUMAtriptan 6 MG/0.5 ML SDV SUBCUT ONE (01:07)
--- NOTE | 2017-04-18 01:25 | EDM.PDOC ---
ED HPI GENERAL MEDICAL PROBLEM - General Chief Complaint: Headache Stated Complaint: [facility] Time Seen by Provider: 04/18/17 00:30 Source of Information: Reports: Patient, Old Records, RN Notes Reviewed History Limitations: Reports: No Limitations - History of Present Illness INITIAL COMMENTS - FREE TEXT/NARRATIVE: EMS arrival, patient's son arrived as well Chief complaint Headache, chest pain History of present illness 77-year-old gentleman with history of coronary disease and previous myocardial infarction, Previous stroke, recently in hospital for congestive heart failure swelling and shortness of breath from April 06 until April 13, diuresed during that visit. Admitted overnight on April 15 because it fell at home and was generally weak. It was thought he might have a new compression fracture but CT scan comparison indicated no new fracture. He also injured his head during the fall. His headaches since then but they was much worse, above the right eye associated with mild photophobia and no nausea or vomiting. Throbbing and sharp pain. He did have some flashing lights in the eye prior to the onset of headache No personal or family history of recurrent headaches or migraine He had some chest pain earlier tonight and was a bit concerned about his heart. Did not take nitroglycerin no longer has chest pain Not short of breath No swelling of the extremities Headache Pain Score (Numeric/FACES): 7 - Related Data Allergies Allergy/AdvReac Type Severity Reaction Status Date / Time cefaclor [From Ceclor] Allergy Rash Verified 04/18/17 00:36 cefuroxime axetil Allergy Cannot Verified 04/18/17 00:36 [From Ceftin] Remember contact metal agent Allergy Cannot Verified 04/18/17 00:36 Remember diltiazem HCl [From Cardizem] Allergy Cannot Verified 04/18/17 00:36 Remember latex Allergy Rash Verified 04/18/17 00:36 metronidazole [From Flagyl] Allergy Rash Verified 04/18/17 00:36 Metronidazole HCl Allergy Rash Verified 04/18/17 00:36 [From Flagyl] naproxen [From Naprosyn] AdvReac Liver Verified 04/18/17 00:36 Problems ranitidine AdvReac Stomach Verified 04/18/17 00:36 Upset Home Meds: Home Meds Acetaminophen [Acetaminophen Extra Strength] 1,000 mg PO Q6HR PRN 02/26/14 [ History] Calcium Carbonate/Vitamin D3 [Calcium 600 + Vit D Tablet] 1 tab PO DAILY [History] Fish Oil/Boykins-3 Fatty Acids [Fish Oil 1,000 MG] 1 tab PO DAILY 02/26/14 [ History] Glucosamine/D3/Boswellia Ivet [Osteo Bi-Flex Caplet] 1 tab PO DAILY 02/09/15 [ History] Meclizine HCl 25 mg PO TID PRN 02/09/15 [History] Warfarin [Coumadin] 7.5 mg PO ASDIRECTED 11/17/15 [History] Allopurinol [Zyloprim] 100 mg PO DAILY tablet 01/31/17 [Rx] Aspirin 81 mg PO DAILY tab.chew 01/31/17 [Rx] Docusate Sodium [Colace 50 MG/5 ML Liquid] 50 mg PO DAILY cup 01/31/17 [Rx] Metoprolol Succinate [Toprol XL] 50 mg PO DAILY tab.er 01/31/17 [Rx] Nitroglycerin [IJP: Nitroglycerin] 0.4 mg SL ASDIRECTED PRN #0 tablet, sublingual 01/31/17 [Rx] atorvaSTATin [Lipitor] 40 mg PO DAILY tablet 01/31/17 [Rx] glipiZIDE [Glucotrol XL] 20 mg PO BIDM 01/31/17 [Rx] Sennosides/Docusate Sodium [Senna-Docusate Sodium] 1 each PO DAILY 04/06/17 [ History] Warfarin [Coumadin] 5 mg PO ASDIRECTED 04/06/17 [History] metFORMIN [Glucophage] 1,000 mg PO BID 04/06/17 [History] Bumetanide [Bumex] 3 mg PO DAILY #45 tablet 04/13/17 [Rx] Past Medical History HEENT History: Reports: Cataract, Glaucoma, Hard of Hearing, Impaired Vision, Macular Degeneration, Otitis Media, Sinusitis Cardiovascular History: Reports: Afib, Bypass, CAD, High Cholesterol, Hypertension, [place], Pacemaker Respiratory History: Reports: SOB Gastrointestinal History: Reports: Chronic Constipation, Chronic Diarrhea, Other (See Below) Other Gastrointestinal History: diverticulitis, bloody stools Genitourinary History: Reports: Prostate Disorder Musculoskeletal History: Reports: Arthritis, Osteoarthritis Neurological History: Reports: CVA, TIA, Vertigo Endocrine/Metabolic History: Reports: Diabetes, Type II Hematologic History: Reports: Anticoagulation Therapy, Blood Transfusion(s) Immunologic History: Reports: None Oncologic (Cancer) History: Reports: Prostate - Infectious Disease History Infectious Disease History: Reports: Chicken Pox, Measles, Mumps Other Infectious Disease History: unknown to patient - Past Surgical History HEENT Surgical History: Reports: Myringotomy w Tube(s) Cardiovascular Surgical History: Reports: Coronary Artery Bypass, Pacer GI Surgical History: Reports: Appendectomy, Cholecystectomy, Colonoscopy, Hernia , Abdominal, Hernia, Inguinal, Hernia Repair/Other Male Surgical History: Reports: TURP-Transurethral Resection of Prostate Musculoskeletal Surgical History: Reports: Knee Replacement Oncologic Surgical History: Reports: None Dermatological Surgical History: Reports: Skin Biopsy Social & Family History - Family History HEENT: Reports: Impaired Vision Cardiac: Reports: Afib, CAD, [place] Respiratory: Reports: COPD GI: Reports: Cirrhosis, Pancreatitis : Reports: None OBGYN: Reports: None Musculoskeletal: Reports: Arthritis Neurological: Reports: CVA Psychiatric: Reports: None Endocrine/Metabolic: Reports: Diabetes, type II Hematologic: Reports: None Immunologic: Reports: None Dermatologic: Reports: None Oncologic: Reports: None - Tobacco Use Smoking Status *Q: Never Smoker Years of Tobacco use: 42 Packs/Tins Daily: 1 Used Tobacco, but Quit: Yes Month Tobacco Last Used: UNKNOWN Second Hand Smoke Exposure: Yes - Caffeine Use Caffeine Use: Reports: Coffee - Alcohol Use Days Per Week of Alcohol Use: 0 Number of Drinks Per Day: 0 Total Drinks Per Week: 0 - Recreational Drug Use Recreational Drug Use: No ED ROS GENERAL - Review of Systems Review Of Systems: See Below Constitutional: Reports: No Symptoms HEENT: Reports: No Symptoms Respiratory: Reports: No Symptoms Cardiovascular: Reports: Chest Pain. Denies: Syncope GI/Abdominal: Reports: No Symptoms. Denies: Nausea, Vomiting Musculoskeletal: Reports: No Symptoms Skin: Reports: No Symptoms Neurological: Reports: Headache. Denies: Syncope, Trouble Speaking, Difficulty Walking Psychiatric: Reports: No Symptoms Hematologic/Lymphatic: Reports: No Symptoms Immunologic: Reports: No Symptoms ED EXAM, GENERAL - Physical Exam Exam: See Below Exam Limited By: No Limitations General Appearance: Alert, Other (well, vitals normal,slurring of speech) Eye Exam: Bilateral Eye: Normal Inspection Ears: Normal External Exam, Normal Canal, Hearing Loss, Other (hearing aids bilateral) Ear Exam: Bilateral Ear: Auricle Normal, Canal Normal Nose: Normal Inspection, Normal Mucosa Throat/Mouth: Normal Inspection, Normal Lips, Normal Voice Head: Atraumatic, Normocephalic Neck: Normal Inspection, Non-Tender Respiratory/Chest: No Respiratory Distress, Lungs Clear Cardiovascular: Normal Peripheral Pulses, Regular Rate, Rhythm GI/Abdominal: Normal Bowel Sounds, Soft, Non-Tender Extremities: Normal Inspection, Non-Tender Neurological: Alert, No Motor/Sensory Deficits, Other (left facial droop from previous stroke) Psychiatric: Normal Mood Skin Exam: Warm, Dry, Normal Color Lymphatic: No Adenopathy Course - Vital Signs Last Recorded V/S: Last Vital Signs Temp 36.9 C 04/18/17 03:23 Pulse 62 04/18/17 03:23 Resp 16 04/18/17 03:23 BP 114/54 L 04/18/17 03:23 Pulse Ox 97 04/18/17 03:23 - Orders/Labs/Meds Orders: Active Orders 24 hr Category Date Time Status EKG Documentation Completion [RC] ASDIRECTED Care 04/18/17 01:06 Active Head wo Cont [CT] Stat Exams 04/18/17 01:05 Taken Sodium Chloride 0.9% [Saline Flush] Med 04/18/17 01:53 Active 10 ml FLUSH ASDIRECTED PRN Saline Lock Insert [OM.PC] Routine Oth 04/18/17 01:53 Ordered EKG 12 Lead [EK] Routine Ther 04/18/17 01:05 Ordered Medication Orders Sodium Chloride (Saline Flush) 10 ml FLUSH ASDIRECTED PRN PRN Reason: Keep Vein Open Last Admin: 04/18/17 02:13 Dose: 10 ml Labs: Laboratory Tests 04/18/17 04/18/17 Range/Units 01:15 01:15 WBC 5.2 (4.5-11.0) K/uL RBC 3.28 L (4.30-5.90) M/uL Hgb 10.0 L (12.0-15.0) g/dL Hct 31.3 L (40.0-54.0) % MCV 95 (80-98) fL MCH 31 (27-31) pg MCHC 32 (32-36) % Plt Count 142 L (150-400) K/uL Troponin I 0.040 (0.000-0.056) ng/mL Meds: Medications Generic Name Dose Route Start Last Admin Trade Name Octavio PRN Reason Stop Dose Admin Sodium Chloride 10 ml 04/18/17 01:53 04/18/17 02:13 Saline Flush FLUSH 10 ml ASDIRECTED PRN Administration Keep Vein Open Discontinued Medications Generic Name Dose Route Start Last Admin Trade Name Octavio PRN Reason Stop Dose Admin Sumatriptan Succinate 6 mg 04/18/17 01:07 04/18/17 01:20 Imitrex SUBCUT 04/18/17 01:08 6 mg ONETIME ONE Administration - Re-Assessments/Exams Free Text/Narrative Re-Assessment/Exam: 04/18/17 01:27 77-year-old male who had a head injury when he fell 3 days ago, returning with new onset headache right-sided throbbing and sharp with slight photophobia. He is also concerned about his chest pain which has resolved. Service headaches just migraine-related have a head injury so the skin is ordered to exclude injury to the head Imitrex 6 mg subcutaneous 04/18/17 01:52 Ekg paced rhythm Pain improved with the above treatment However moderately large right frontoparietal subdural hematoma with slight midline shift on CT scan Transfer to [facility] for further treatment 04/18/17 02:05 Departure - Departure Time of Disposition: 03:28 Disposition: DC/Tfer to Acute Hospital 02 Condition: Fair Clinical Impression: Subdural hematoma - Discharge Information Referrals: Ronald Ureña MD [Primary Care Provider] - - My Orders Last 24 Hours: My Active Orders 04/18/17 01:05 Head wo Cont [CT] Stat EKG 12 Lead [EK] Routine 04/18/17 01:06 EKG Documentation Completion [RC] ASDIRECTED 04/18/17 01:53 Sodium Chloride 0.9% [Saline Flush] 10 ml FLUSH ASDIRECTED PRN Saline Lock Insert [OM.PC] Routine - Assessment/Plan Last 24 Hours: My Active Orders 04/18/17 01:05 Head wo Cont [CT] Stat EKG 12 Lead [EK] Routine 04/18/17 01:06 EKG Documentation Completion [RC] ASDIRECTED 04/18/17 01:53 Sodium Chloride 0.9% [Saline Flush] 10 ml FLUSH ASDIRECTED PRN Saline Lock Insert [OM.PC] Routine
[2017-04-18] MEDS ORDERED: Sodium Chloride 0.9% 10 ML Syringe FLUSH PRN (01:53)
[2017-04-18 03:24] VITALS: BP 114/54
== END 2017-04-18 03:30 ==
LOC: JP.ED 00:18
DX: S06.5X0A Traumatic subdural hemorrhage without loss of consciousness, initial encounter (principal); I48.91 Unspecified atrial fibrillation; I25.10 Atherosclerotic heart disease of native coronary artery without angina pectoris; I11.0 Hypertensive heart disease with heart failure; I50.9 Heart failure, unspecified; I25.2 Old myocardial infarction; E78.00 Pure hypercholesterolemia, unspecified; M19.90 Unspecified osteoarthritis, unspecified site; E11.9 Type 2 diabetes mellitus without complications; Z86.73 Personal history of transient ischemic attack (TIA), and cerebral infarction without residual deficits; Z95.0 Presence of cardiac pacemaker; Z96.22 Myringotomy tube(s) status; Z95.1 Presence of aortocoronary bypass graft; Z90.49 Acquired absence of other specified parts of digestive tract; Z96.659 Presence of unspecified artificial knee joint; Z98.890 Other specified postprocedural states; Z85.46 Personal history of malignant neoplasm of prostate; Z88.8 Allergy status to other drugs, medicaments and biological substances; Z91.040 Latex allergy status; Z91.048 Other nonmedicinal substance allergy status; Z79.01 Long term (current) use of anticoagulants; Z79.82 Long term (current) use of aspirin; Z79.899 Other long term (current) drug therapy; W19.XXXA Unspecified fall, initial encounter
CPT/HCPCS: 36415; 70450; 84484; 85027; 93005; 93010; 96372; 99285; J3030; J7050